=== PATIENT | male | born 1935 | race Caucasian/White ===

== ENCOUNTER → 2016-03-10 | Day surgery (SDC) | payer OTHER ==
[2016-03-09 13:02] VITALS: Ht 167.6 cm; Wt 65.9 kg
[~2016-03-10] VITALS: Ht 167.6 cm; Wt 65.9 kg
[~2016-03-10] MED LIST: 500ML BSS 0.3ML EPI 1:1000PF IRRIG ONE; ACETAMINOPHEN 325 MG TAB PO PRN; AMVISC PLUS 0.8ML SYRINGE INT OCU ONE; ATROPINE SULFATE 0.1 MG/ML 5ML SYR IV PRN; BROM0.07 OPR; BSS FLUSH ONE; EpHEDrine SULFATE INJ 50 MG/ML AMP IV PRN; EpINEphrine INJ 1MG/ML AMP 1 MG/ML AMP ONE; FENTANYL CITRATE INJ 50 MCG/1 ML 2 ML VIAL IV PRN; FLUMAZENIL 0.1 MG/1 ML 10 ML VIAL IV PRN; HYDROmorphone INJ 2 MG/ML SYR/VIAL IV PRN; LABETALOL HCL IV 5 MG/ML 20ML IV PRN; LACTATED RINGER'S 1000ML 500 ML IV SCH; LIDOCAINE 3.5% OPH GEL PER APPLICATION CHARGE ONE; LIDOCAINE HCL 1% MPF 2 ML VIAL ONE; MEPERIDINE HCL 25 MG/ML CARP IV PRN; MIDAZOLAM HCL 1 MG/ML 2ML VIAL ONE; NALOXONE HCL 0.4 MG/1 ML VIAL/CARP IV PRN; OCUCOAT 1 ML SOLN IO ONE; ONDANSETRON INJ 2 MG/ML 2 ML VIAL IV PRN; PHENYLEPHRINE 100MCG/ML 5ML SYR IV PRN; POVIDONE-IODINE OP SOLN 30 ML BTL ONE; PRED1SUS3 OPR; PROPARACAINE 0.5% OP SOLN PER DROP CHARGE OPR SCH; SODIUM CHLORIDE 0.9% 500ML IV SCH; TOBRAMYCIN/DEXAMETHASONE OPH OINT PER APPLN CHARGE ONE
[2016-03-10] MEDS: PHENYLEPHRINE HCL 2.5% OP SOLN PER DROP CHARGE OPR SCH ×2 (09:46→09:51)
[2016-03-10] MEDS: TROPICAMIDE 1% OP SOLN PER DROP CHARGE OPR SCH ×2 (09:47→09:52)
[2016-03-10] MEDS: CYCLOPENTOLATE HCL 1% OP SOLN PER DROP CHARGE OPR SCH ×2 (09:48→09:53)
[2016-03-10] MEDS: KETOROLAC 0.5% OP SOLN PER DROP CHARGE OPR SCH ×2 (09:49→09:54)
[2016-03-10] MEDS: GATIFLOXACIN OP SOLN PER DROP CHARGE OPR SCH ×2 (09:50→10:00)
--- NOTE | 2016-03-10 09:58 | History & Physical Bridge - [place] ---
H&P Re-Evaluation Bridge Note: I have examined the patient, reviewed the History & Physical and in the interval since the performance of the History & Physical I have noted the following changes of clinical significance: No changes noted
--- NOTE | 2016-03-10 10:39 | [facility] Operative Report ---
Operative Report 1. PREOPERATIVE DIAGNOSIS: Cataract of the right eye. 2. POSTOPERATIVE DIAGNOSIS: Same. 3. PROCEDURE: Phacoemulsification with intraocular lens implantation of the right eye. SURGEON: Dr. Contreras Watson. ANESTHESIA: Topical Lidocaine gel, 1% Non- Preserved intracameral Lidocaine, and monitored intravenous sedation. INDICATIONS FOR THE PROCEDURE: The patient is a 80 - year-old male with a history of cataract of the right eye causing significant visual impairment. The details of the proposed procedure were explained to the patient who asked appropriate questions and following discussion of all risks, benefits and alternatives agreed to have the procedure done. 4. OPERATION AND FINDINGS: DESCRIPTION OF PROCEDURE: After informed consent was obtained, the patient was brought to the Operating Room at the [facility]. The patient was placed in a supine position and then the right eye was prepped and draped in the usual sterile fashion for intraocular surgery. A drop of topical Lidocaine gel was placed in the operative eye. A wire lid speculum was then placed in the fornices. A corneal paracentesis was then created temporally. The Non-Preserved Lidocaine was then instilled into the anterior chamber. The anterior chamber was then pressurized with viscoelastic. A 2.0 mm clear corneal incision was then created temporally. A cystotome was inserted into the anterior chamber and used to create a tear in the anterior lens capsule. This capsular tear was then used to create a small flap and the flap was dragged in a counterclockwise direction in order to create a continuous curvilinear capsulorrhexis. Hydrodissection was accomplished with balanced salt solution. Phacoemulsification of the lens nucleus was then performed in a standard [id number] technique. The phaco time was 33 seconds with an average power of 18 %. The remaining cortical material was removed using irrigation aspiration. The capsular bag was then filled with viscoelastic. A Bausch & Lomb MI60L +16.0 diopters lens was then loaded into the injector and injected into the capsular bag. The remaining viscoelastic was removed with the irrigation aspiration handpiece. The wound was hydrated and then checked and found to be watertight. The intraocular pressure was checked and found to be adequate. The wire lid speculum was removed and the patient's face was cleaned and dried. TobraDex ointment was placed in the inferior fornix. The patient was discharged to the Recovery Room having tolerated the procedure well. There were no complications. The patient will be seen tomorrow in the office for follow-up. I attest to the content of the Intraoperative Record and any orders documented therein. Any exceptions are noted below.
--- NOTE | 2016-03-10 10:39 | Discharge Instructions-SurgCtr ---
Discharge Instructions Visit Reason for Visit: Cataract Right Eye Discharge Discharge Diagnosis / Problem: cataract Discharge Goals Goal(s): Improve function Activity Recommendations Activity Limitations: per Instructions/Follow-up section Anesthesia . Post Anesthesia Instructions: If you have had General Anesthesia or IV Sedation: * Do not drive today. * Resume driving when surgeon permits. * Do not make important decisions or sign legal documents today. * Call surgeon for: 1. Temperature elevations greater than 101 degrees F. 2. Uncontrollable pain. 3. Excessive bleeding. 4. Persistent nausea and vomiting. 5. Medication intolerance (nausea, vomiting or rash). * For nausea and vomiting use only clear liquids such as: tea, soda, bouillon until nausea subsides, then gradually increase diet as tolerated. * If you have any concerns or questions, call your surgeon's office. If physician is unavailable and it is an emergency, call 911 or go to the nearest emergency room. . Instructions / Follow-Up Instructions / Follow-Up ACTIVITY RECOMMENDATIONS: * No strenuous lifting, jogging or running for 4 days * No swimming or yard work for 1 week. * Limited bending is permitted, such as putting on shoes. RETURN TO SCHOOL/WORK: No work until seen by physician in office. MEDICATIONS: Resume previous medications unless instructed otherwise by your surgeon. This includes eye drops for glaucoma. Zymaxid/Gatifloxacin (michelle cap) - one drop every 2 hours until bedtime Nevanac/Ilevro/Prolensa/Ketorolac (weeks cap) - one drop every 4 hours until bedtime Prednisolone (white/pink cap, SHAKE WELL) - one drop every 2 hours until bedtime Starting tomorrow - all 3 drops every 4 hours until seen in the office Optive drops - as needed for discomfort SPECIAL CARE INSTRUCTIONS: * Wear eyeshield when sleeping, for four nights. * You may wear your own glasses or sunglasses while awake. * You may read or watch TV * You may shower and wash your face, but be gentle around the eye and pat dry. * Blurry vision and mild irritation are normal. * Call office if pain is more severe or vision becomes dark at . FOLLOW UP VISIT: Follow-up with Dr Watson tomorrow. Diet Recommendations Home Diet: resume previous diet Procedures Procedures Performed: Right Cataract Phacoemulsification With Intraocular Lens Implant Pending Studies Studies pending at discharge: no Medical Emergencies . Who to Call and When: Medical Emergencies: If at any time you feel your situation is an emergency, please call 911 immediately. . Non-Emergent Contact Non-Emergency issues call your: Chief Creative Officer . . "Provider Documentation" section prepared by Contreras Watson.
--- NOTE | 2016-03-10 10:53 | Anesthesia Progress Nt - [facility] ---
Anesthesia Post Op Note Date & Time Mar 10, 2016 at 10:52 Vital Signs Pain Intensity: 0 Vital Signs Past 12 Hours Date Time Temp Pulse Resp B/P Pulse Ox O2 Delivery O2 Flow Rate FiO2 03/10/16 10:41 36.3 70 16 143/84 97 Room Air 03/10/16 09:35 36.4 77 18 147/83 98 Room Air Notes Mental Status: alert / awake / arousable, participated in evaluation Pt Amnestic to Procedure: Yes Nausea / Vomiting: adequately controlled Pain: adequately controlled Airway Patency, RR, SpO2: stable & adequate BP & HR: stable & adequate Hydration State: stable & adequate Anesthetic Complications: no major complications apparent
[2016-03-10 10:59] VITALS: BP 156/87; PULSE 73; TEMP 36.4; O2SAT 96
== END | disposition home or self-care (01) ==
LOC: X.SURG 09:25
PROVIDERS: ATTEND Ophthalmology
DX: H26.9 Unspecified cataract (principal); Z88.5 Allergy status to narcotic agent; Z85.828 Personal history of other malignant neoplasm of skin; Z89.022 Acquired absence of left finger(s); Z98.890 Other specified postprocedural states

== ENCOUNTER → 2016-04-07 | Day surgery (SDC) | payer OTHER ==
[2016-03-26 07:48] VITALS: Ht 167.6 cm; Wt 65.9 kg
[~2016-04-07] VITALS: Ht 167.6 cm; Wt 65.9 kg
[~2016-04-07] MED LIST changes: -FLUMAZENIL 0.1 MG/1 ML 10 ML VIAL IV PRN; -HYDROmorphone INJ 2 MG/ML SYR/VIAL IV PRN; -LABETALOL HCL IV 5 MG/ML 20ML IV PRN; -MEPERIDINE HCL 25 MG/ML CARP IV PRN; -NALOXONE HCL 0.4 MG/1 ML VIAL/CARP IV PRN; -PHENYLEPHRINE 100MCG/ML 5ML SYR IV PRN; +PROPARACAINE 0.5% OP SOLN PER DROP CHARGE OPL SCH; -PROPARACAINE 0.5% OP SOLN PER DROP CHARGE OPR SCH; -SODIUM CHLORIDE 0.9% 500ML IV SCH
[2016-04-07] MEDS: PHENYLEPHRINE HCL 2.5% OP SOLN PER DROP CHARGE OPL SCH ×2 (06:32→06:37)
[2016-04-07] MEDS: TROPICAMIDE 1% OP SOLN PER DROP CHARGE OPL SCH ×2 (06:33→06:38)
[2016-04-07] MEDS: CYCLOPENTOLATE HCL 1% OP SOLN PER DROP CHARGE OPL SCH ×2 (06:34→06:39)
[2016-04-07] MEDS: KETOROLAC 0.5% OP SOLN PER DROP CHARGE OPL SCH ×2 (06:35→06:40)
[2016-04-07] MEDS: GATIFLOXACIN OP SOLN PER DROP CHARGE OPL SCH ×2 (06:36→06:46)
--- NOTE | 2016-04-07 06:59 | History & Physical Bridge - [place] ---
H&P Re-Evaluation Bridge Note: I have examined the patient, reviewed the History & Physical and in the interval since the performance of the History & Physical I have noted the following changes of clinical significance: Diagnosis: Left Cataract Procedure: Left Cataract Removal with Lens Implant No changes noted
[2016-04-07 07:48] VITALS: TEMP 36.8
--- NOTE | 2016-04-07 07:48 | Discharge Instructions-SurgCtr ---
Discharge Instructions Visit Reason for Visit: Left Cataract Discharge Discharge Diagnosis / Problem: cataract Discharge Goals Goal(s): Improve function Activity Recommendations Activity Limitations: per Instructions/Follow-up section Anesthesia . Post Anesthesia Instructions: If you have had General Anesthesia or IV Sedation: * Do not drive today. * Resume driving when surgeon permits. * Do not make important decisions or sign legal documents today. * Call surgeon for: 1. Temperature elevations greater than 101 degrees F. 2. Uncontrollable pain. 3. Excessive bleeding. 4. Persistent nausea and vomiting. 5. Medication intolerance (nausea, vomiting or rash). * For nausea and vomiting use only clear liquids such as: tea, soda, bouillon until nausea subsides, then gradually increase diet as tolerated. * If you have any concerns or questions, call your surgeon's office. If physician is unavailable and it is an emergency, call 911 or go to the nearest emergency room. . Instructions / Follow-Up Instructions / Follow-Up ACTIVITY RECOMMENDATIONS: * No strenuous lifting, jogging or running for 4 days * No swimming or yard work for 1 week. * Limited bending is permitted, such as putting on shoes. RETURN TO SCHOOL/WORK: No work until seen by physician in office. MEDICATIONS: Resume previous medications unless instructed otherwise by your surgeon. This includes eye drops for glaucoma. Zymaxid/Gatifloxacin (michelle cap) - one drop every 2 hours until bedtime Nevanac/Ilevro/Prolensa/Ketorolac (weeks cap) - one drop every 4 hours until bedtime Prednisolone (white/pink cap, SHAKE WELL) - one drop every 2 hours until bedtime Starting tomorrow - all 3 drops every 4 hours until seen in the office Optive drops - as needed for discomfort SPECIAL CARE INSTRUCTIONS: * Wear eyeshield when sleeping, for four nights. * You may wear your own glasses or sunglasses while awake. * You may read or watch TV * You may shower and wash your face, but be gentle around the eye and pat dry. * Blurry vision and mild irritation are normal. * Call office if pain is more severe or vision becomes dark at . FOLLOW UP VISIT: Follow-up with Dr Watson tomorrow. Diet Recommendations Home Diet: resume previous diet Procedures Procedures Performed: Left Cataract Phacoemulsification With Intraocular Lens Implant Pending Studies Studies pending at discharge: no Medical Emergencies . Who to Call and When: Medical Emergencies: If at any time you feel your situation is an emergency, please call 911 immediately. . Non-Emergent Contact Non-Emergency issues call your: Propellant Charge Zone Assembler . . "Provider Documentation" section prepared by Contreras Watson.
--- NOTE | 2016-04-07 07:48 | [facility] Operative Report ---
Operative Report 1. PREOPERATIVE DIAGNOSIS: Cataract of the left eye. 2. POSTOPERATIVE DIAGNOSIS: Same. 3. PROCEDURE: Phacoemulsification with intraocular lens implantation of the left eye. SURGEON: Dr. Contreras Watson. ANESTHESIA: Topical Lidocaine gel, 1% Non- Preserved intracameral Lidocaine, and monitored intravenous sedation. INDICATIONS FOR THE PROCEDURE: The patient is a 80 - year-old male with a history of cataract of the left eye causing significant visual impairment. The details of the proposed procedure were explained to the patient who asked appropriate questions and following discussion of all risks, benefits and alternatives agreed to have the procedure done. 4. OPERATION AND FINDINGS: DESCRIPTION OF PROCEDURE: After informed consent was obtained, the patient was brought to the Operating Room at the [facility]. The patient was placed in a supine position and then the left eye was prepped and draped in the usual sterile fashion for intraocular surgery. A drop of topical Lidocaine gel was placed in the operative eye. A wire lid speculum was then placed in the fornices. A corneal paracentesis was then created temporally. The Non-Preserved Lidocaine was then instilled into the anterior chamber. The anterior chamber was then pressurized with viscoelastic. A 2.0 mm clear corneal incision was then created temporally. A cystotome was inserted into the anterior chamber and used to create a tear in the anterior lens capsule. This capsular tear was then used to create a small flap and the flap was dragged in a counterclockwise direction in order to create a continuous curvilinear capsulorrhexis. Hydrodissection was accomplished with balanced salt solution. Phacoemulsification of the lens nucleus was then performed in a standard [id number]-[id number] technique. The phaco time was 43 seconds with an average power of 14 %. The remaining cortical material was removed using irrigation aspiration. The capsular bag was then filled with viscoelastic. A Bausch & Lomb MI60L +16.0 diopters lens was then loaded into the injector and injected into the capsular bag. The remaining viscoelastic was removed with the irrigation aspiration handpiece. The wound was hydrated and then checked and found to be watertight. The intraocular pressure was checked and found to be adequate. The wire lid speculum was removed and the patient's face was cleaned and dried. TobraDex ointment was placed in the inferior fornix. The patient was discharged to the Recovery Room having tolerated the procedure well. There were no complications. The patient will be seen tomorrow in the office for follow-up. I attest to the content of the Intraoperative Record and any orders documented therein. Any exceptions are noted below.
[2016-04-07 08:07] VITALS: BP 152/75; PULSE 69; O2SAT 98
--- NOTE | 2016-04-07 08:12 | Anesthesia Progress Nt - [facility] ---
Anesthesia Post Op Note Date & Time Apr 07, 2016 at 08:12 Vital Signs Pain Intensity: 0 Vital Signs Past 12 Hours Date Time Temp Pulse Resp B/P Pulse Ox O2 Delivery O2 Flow Rate FiO2 04/07/16 08:07 69 16 152/75 98 Room Air 04/07/16 07:48 36.8 66 16 147/80 98 Room Air 04/07/16 06:28 36.5 68 16 153/81 98 Room Air Notes Mental Status: alert / awake / arousable, participated in evaluation Pt Amnestic to Procedure: Yes Nausea / Vomiting: adequately controlled Pain: adequately controlled Airway Patency, RR, SpO2: stable & adequate BP & HR: stable & adequate Hydration State: stable & adequate Anesthetic Complications: no major complications apparent
== END | disposition home or self-care (01) ==
LOC: X.SURG 06:13
PROVIDERS: ATTEND Ophthalmology
DX: H26.9 Unspecified cataract (principal); H54.7 Unspecified visual loss; G43.119 Migraine with aura, intractable, without status migrainosus; C44.90 Unspecified malignant neoplasm of skin, unspecified; K58.9 Irritable bowel syndrome, unspecified; K57.32 Diverticulitis of large intestine without perforation or abscess without bleeding

== ENCOUNTER 2018-03-17 10:23 | Inpatient (IN) ==
--- NOTE | 2018-03-15 13:39 | Anesthesiology Consultation ---
Date of Service March 15, 2018 History Surgery Operation Date: 03/17/18 12:30 Proposed Procedures p Right Robot Video-Assisted Thoracoscopy with Right Lower Lobe Wedge Resection , Possible Left Lower Lobectomy with Mediastinal Lymphadenectomy - Neal Carroll MD, FACS Allergies Allergy/AdvReac Type Severity Reaction Status Date / Time morphine AdvReac Unknown SLOWS HR Verified 02/18/18 07:36 Medications Home Medications Medication Instructions Recorded Confirmed Last Taken No Known Home Medications 02/18/18 02/18/18 Unknown Past Medical History Medical History Urinary problem Stomach problems Pneumonia Kidney disease Squamous cell cancer of scalp and skin of neck (Resolved) Past Family History Family History Other Cancer HTN (hypertension) Heart disease Lung disease Social History Smoking Status: Never smoker Testing Electrocardiogram Date: 02/18/18 Findings: + NSR @ (90), + RBBB and + T wave inversion (inferior,anterior)
--- NOTE | 2018-03-15 15:48 | Anesthesiology Consultation ---
Date of Service March 15, 2018 Assessment & Plan (1) Encounter for pre-operative examination: Chart Review Chart Review: Patient NOT seen in Pre Admission Testing Consults Requested none History Surgery Operation Date: 03/17/18 12:30 Proposed Procedures p Right Robot Video-Assisted Thoracoscopy with Right Lower Lobe Wedge Resection , Possible Left Lower Lobectomy with Mediastinal Lymphadenectomy - Neal Carroll MD, FACS Allergies Allergy/AdvReac Type Severity Reaction Status Date / Time morphine AdvReac Unknown SLOWS HR Verified 02/18/18 07:36 Medications Home Medications Medication Instructions Recorded Confirmed Last Taken acetaminophen [Tylenol] 325 mg PO Q6H PRN 03/15/18 03/15/18 Unknown diazepam 5 mg PO HS PRN 03/15/18 03/15/18 Unknown ibuprofen [Advil] 200 mg PO QID PRN 03/15/18 03/15/18 Unknown omeprazole 20 mg PO DAILY 03/15/18 03/15/18 Unknown triamcinolone acetonide 1 applic TOPICAL BID 03/15/18 03/15/18 Unknown Past Medical History Medical History Urinary problem Stomach problems Pneumonia Kidney disease 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 Ventricular rate has increase by 33bpm, T wave inversion now evident in inferior and anterior leads. Chest X-Ray Date: 02/18/18 Findings: + NAD FINDINGS: An AP, portable, upright chest radiograph is compared to study dated 01/18/2015. The examination is degraded by portable technique and patient rotation. The cardiomediastinal silhouette is unremarkable, noting atherosclerotic calcification of the thoracic aorta. There is bibasilar scarring /atelectasis. Chronic interstitial thickening is similar to previous. No airspace consolidation or large pleural effusion is identified. No pneumothorax is seen. The skeletal structures are osteopenic. There is a healed right-sided rib fracture. IMPRESSION: No acute cardiopulmonary abnormality. Echocardiogram Date: 02/18/18 EF: 65-70% LV Function: normal RWMA: + none Other Findings: + LVH (Mild concentric) and + diastolic dysfunction (Grade I ( abnormal relaxation pattern)) Mild aortic regurgitation. Trace mitral regurgitation. Other Testing CT Angio Chest PE protocol 02/18/18: IMPRESSION: 1. No acute aortic pathology or evidence of pulmonary thromboembolic disease. 2. 2.2 x 2.7 x 1.9 cm soft tissue attenuating lesion of the tracheoesophageal recess. Differential considerations would include pathologic lymph node or pulmonary neoplasm. This lesion would be amenable to bronchoscopic tissue sampling. 3. Circumferential wall thickening of the mid and distal esophagus with small sliding-type hiatal hernia. Mild reactive fluid about the distal esophagus also noted. These findings could be correlated with endoscopy. 4. Bronchitis with mild mucous plugging and bibasilar subsegmental atelectasis. Laboratory Results Laboratory Tests 02/18/18 02/18/18 06:52 06:52 WBC 7.17 Hgb 13.3 L Hct 40.3 L Plt Count 263 Sodium 142 Potassium 3.6 Chloride 110 H Carbon Dioxide 26 BUN 22 H Creatinine 1.30 Glucose 118 H
[~2018-03-17 10:23] MED LIST changes: -500ML BSS 0.3ML EPI 1:1000PF IRRIG ONE; -ACETAMINOPHEN 325 MG TAB PO PRN; -AMVISC PLUS 0.8ML SYRINGE INT OCU ONE; -ATROPINE SULFATE 0.1 MG/ML 5ML SYR IV PRN; -BROM0.07 OPR; -BSS FLUSH ONE; -EpHEDrine SULFATE INJ 50 MG/ML AMP IV PRN; -EpINEphrine INJ 1MG/ML AMP 1 MG/ML AMP ONE; -FENTANYL CITRATE INJ 50 MCG/1 ML 2 ML VIAL IV PRN; -LACTATED RINGER'S 1000ML 500 ML IV SCH; -LIDOCAINE 3.5% OPH GEL PER APPLICATION CHARGE ONE; -LIDOCAINE HCL 1% MPF 2 ML VIAL ONE; +LR 15ML/HR IV SCH; -MIDAZOLAM HCL 1 MG/ML 2ML VIAL ONE; -OCUCOAT 1 ML SOLN IO ONE; -ONDANSETRON INJ 2 MG/ML 2 ML VIAL IV PRN; -POVIDONE-IODINE OP SOLN 30 ML BTL ONE; -PRED1SUS3 OPR; -PROPARACAINE 0.5% OP SOLN PER DROP CHARGE OPL SCH; -TOBRAMYCIN/DEXAMETHASONE OPH OINT PER APPLN CHARGE ONE
[2018-03-17] MEDS ORDERED: DEXAMETHASONE SOD INJ 4 MG/ML VIAL ONE (11:46)
[2018-03-17] MEDS ORDERED: fentaNYL citrate 100 MCG/2 ML VIAL ONE ×2 (11:46→14:51)
[2018-03-17] MEDS ORDERED: GLYCOPYRROLATE 0.2 MG/ML VIAL ONE (11:46)
[2018-03-17] MEDS ORDERED: ONDANSETRON INJ 2 MG/ML 2 ML VIAL ONE ×2 (11:46→16:12)
[2018-03-17] MEDS ORDERED: NEOSTIGMINE METHYLSULFATE 5 MG/5 ML SYR ONE (11:46)
[2018-03-17] MEDS ORDERED: PROPOFOL IV EMULSION 10 MG/ML 20 ML VIAL IV ONE ×2 (11:46→14:02)
[2018-03-17] MEDS ORDERED: LIDOCAINE HCL 2% 2 ML VIAL/AMP(20MG/ML) INFIL ONE (11:46)
[2018-03-17] MEDS ORDERED: ATROPINE SULFATE 0.1 MG/ML 10ML SYR IV PRN (12:02)
[2018-03-17] MEDS ORDERED: ONDANSETRON INJ 2 MG/ML 2 ML VIAL IV PRN ×2 (12:02→17:50)
[2018-03-17] MEDS ORDERED: ePHEDrine sulfate 50 MG/ML AMP IV PRN (12:02)
[2018-03-17] MEDS ORDERED: BUPIVACAINE LIPOSOME 1.3% 266 MG/20 ML VIAL INFIL ONE (12:11)
[2018-03-17] MEDS ORDERED: BUPIVACAINE 0.5 % 5 MG/1 ML MPF 30ML VIAL ONE (12:11)
[2018-03-17] MEDS ORDERED: SODIUM CHLORIDE 0.9% PF 50 ML VIAL ONE (12:12)
--- NOTE | 2018-03-17 12:32 | History & Physical Bridge Note ---
Date of Service March 17, 2018 History & Physical Bridge Note I have examined the patient, reviewed the History & Physical and in the interval since the performance of the History & Physical I have noted the following changes of clinical significance: no changes noted
[2018-03-17] MEDS ORDERED: KEFZOL SPECIAL PROCEDURE STOCK 1 GM ADDVIAL IV ONE (13:16)
[2018-03-17] MEDS ORDERED: CEFAZOLIN 1,000 MG/7.5 ML IV PUSH IV ONE (13:30)
[2018-03-17] MEDS ORDERED: SURGICEL ABSORB HEMOSTAT 2IN X 14IN TOP ONE (13:47)
[2018-03-17] MEDS ORDERED: ePHEDrine sulfate 50 MG/ML SYR ONE (14:02)
[2018-03-17] MEDS ORDERED: ALBUMIN HUMAN 5% 12.5 GM/250 ML VIAL IV ONE (14:23)
[2018-03-17] MEDS ORDERED: TISSEEL FIBRIN SEALANT 10ML TOP ONE (14:41)
[2018-03-17] MEDS ORDERED: PROGEL PLEURAL AIR LEAK SEALAN 4ML TOP ONE (14:42)
--- NOTE | 2018-03-17 15:38 | Post Operative Brief Note ---
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
[2018-03-17] MEDS ORDERED: METOCLOPRAMIDE HCL INJ 5 MG/ML 2 ML VIAL IV ONE (16:00)
[2018-03-17] MEDS ORDERED: ROCURONIUM BROMIDE 10 MG/ML 5 ML VIAL ONE (16:12)
[2018-03-17] MEDS: fentaNYL citrate 100 MCG/2 ML VIAL IV PRN ×5 (16:19→16:50)
--- NOTE | 2018-03-17 16:24 | XRay Report ---
XR chest 1V portable CLINICAL HISTORY: right lung mass resection COMPARISON STUDY: Chest radiograph and chest CT February 18, 2018. FINDINGS: Right chest tube is in place. A small right apical pneumothorax with pleural separation of 6 mm is noted. There is a trace left pleural effusion with mild left basilar opacity. There is no melanie dence for pulmonary edema. Patient is rotated. IMPRESSION: 1. Right chest place. Small right apical pneumothorax. 2. Trace left pleural effusion with left basilar opacity suggestive of atelectasis. Electronically signed by: Abdulkadir Zamudio M.D. 03/17/2018 4:23 PM
[2018-03-17] MEDS ORDERED: LABETALOL HCL IV 5 MG/ML 20ML IV ONE (16:54)
[2018-03-17] MEDS: LABETALOL HCL IV 5 MG/ML 20ML IV PRN ×3 (16:57→17:17)
--- NOTE | 2018-03-17 17:25 | Anesthesiology Progress Note ---
Date of Service March 17, 2018 Anesthesia Post Procedure Vital Signs Vital Signs: Temp Pulse Pulse Resp BP BP Pulse Ox 03/17/18 17:15 79 11 L 178/92 H 98 03/17/18 17:10 78 7 L 172/89 H 98 03/17/18 17:09 77 15 172/88 H 98 03/17/18 17:06 78 11 L 97 03/17/18 17:05 78 12 170/91 H 96 03/17/18 17:00 80 9 L 163/81 H 98 03/17/18 16:55 92 H 15 186/84 H 99 03/17/18 16:50 91 H 14 184/91 H 100 03/17/18 16:49 90 10 L 181/98 H 100 03/17/18 16:47 91 H 16 100 03/17/18 16:46 89 16 181/89 H 100 03/17/18 16:45 91 H 14 100 03/17/18 16:41 90 16 186/93 H 99 03/17/18 16:40 90 15 181/100 H 100 03/17/18 16:35 87 12 180/104 H 100 03/17/18 16:30 87 14 179/87 H 100 03/17/18 16:25 85 11 L 179/85 H 100 03/17/18 16:20 83 13 171/102 H 100 03/17/18 16:15 87 14 166/89 H 92 03/17/18 16:11 89 16 152/72 H 92 03/17/18 16:10 87 13 94 03/17/18 16:05 89 20 162/70 H 96 03/17/18 16:01 36.4 C L 87 89 24 161/108 H 161/108 H 97 03/17/18 16:00 22 100 03/17/18 11:04 36.6 C 72 18 173/86 H 97 Pain Intensity Right Lateral Chest: Pain Intensity: 3 Notes Mental Status: alert / awake / arousable Patient Amnestic to Procedure: Yes Nausea / Vomiting: adequately controlled Pain: adequately controlled Airway Patency, RR, SpO2: stable & adequate BP & HR: stable & adequate Hydration State: stable & adequate Anesthetic Complications: no major complications apparent
[2018-03-17] MEDS ORDERED: diazePAM 5 MG TABLET PO PRN (17:50)
[2018-03-17] MEDS ORDERED: KETOROLAC TROMETHAMINE 15 MG/ML VIAL IV PRN (17:50)
[2018-03-17] MEDS ORDERED: D5W AND 1/2NSS 1,000 ML IV SCH (17:50)
--- NOTE | 2018-03-17 19:08 | Operative Report ---
DATE OF OPERATION: 03/17/2018 PREOPERATIVE DIAGNOSIS: Hypermetabolic mass, superior segment, right lower lobe. POSTOPERATIVE DIAGNOSIS: Hypermetabolic mass, superior segment, right lower lobe. PROCEDURES: 1. Robotic-assisted right thoracoscopic wedge resection and excision of mass. 2. Mediastinal lymphadenectomy. SURGEON: Neal Carroll MD PUBLIC HOUSING MANAGER: ALMA DELIA Goyal (Mr. Esa was present in the whole case and was at the patient's bedside while I was at the console). ANESTHESIA: General anesthesia, endotracheal intubation. 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 He underwent a resection with positive margins and then a re-resection in 01/2017. Patient presented to me after he was worked up and found to have a hypermetabolic mass in the superior segment of the right lower lobe, which was isolated. He presented to see me, and we set him up for a wedge resection. I explained to him that we could do endobronchial ultrasound with biopsy; however, this is the only area that lit up, and if it was a lung primary, we would do a frozen section and do a lobectomy, and if it was a metastasis, we would simply get clean margins. He understood. On 03/17/2018, the patient underwent an uncomplicated robot-assisted thoracoscopic wedge resection. This is a very difficult case. This mass initially appeared to be coming from the superior segment of the right lower lobe, and I dissected this out and had to peel it off the esophagus. We divided the azygos vein, and I peeled it off the left mainstem bronchus. We finally wedged out a portion of the lung; however, it did not appear to me that this was definitely from the lung. I discussed this with Dr. Jay Miles from anesthesia. We will have to make permanent slides, but it may well have simply been a metastatic deposit. He had spindle cells with sarcomatous features and may well be metastatic from his scalp lesion. Patient tolerated the procedure well. He had small air leak with essentially no blood loss. He was awakened without difficulty and extubated in the room. DESCRIPTION OF PROCEDURE: The patient was brought to the operating room and laid in supine position. General anesthesia induced. Endotracheal intubation performed with a double lumen tube. The patient was turned in the left lateral decubitus position. His right chest was prepped and draped in the usual sterile fashion. I placed a 5 mm port posteriorly, a 12 mm camera port near the mid axillary line, then an 8 mm port between the first 2 ports and an 8 mm port anteriorly. These were all in about the eighth interspace. Also, patient had an assistance port anteriorly, an interspace just above the diaphragm. We had excellent visualization, and there were really no adhesions. He had very well-developed fissures. Upon coming down, we could see that this mass right away. I had excellent exposure, and I meticulously dissected this off the wall of the esophagus. It was a bit difficult superiorly, so I freed up the azygos vein and fired an Endo-KYLAH stapler across this, and this allowed us to pull this mass up quite nicely. I then completed the fissure, although there was really no parenchyma. I identified the arterial branches particularly the posterior ascending branch to the upper lobe. After freeing this up, I wedged out a portion of the superior segment with the mass. Frozen section showed this to be having sarcomatous features with spindle cells, very similar to his scalp lesion. I did not leave any gross tumor behind. We also did a lymph node dissection. I took down the inferior pulmonary ligament and dissected level 9, level 8, level 10, 11, 2, 4, and a portion of 7. We irrigated out the chest. I really did not see any bleeding, and he did not appear to have an air leak. We did use Exparel, 266 mg mixed with 30 mL of 0.25% Marcaine and 250 mL of normal saline. We injected each of our port sites before making the incision and then used this to perform an intercostal block. Our blood loss was negligible. A 24-Malaysian chest tube was placed in the pharmacy sales assistant's port a bit inferiorly and directed toward the apex. It was sutured in place with a heavy silk suture. 0 Vicryl was used to close the camera port. 4-0 Monocryl was used to close each of the incisions. Patient was awakened in the room and tolerated it well. He was transferred to the postanesthesia care unit in stable condition. I attest to the content of the Intraoperative Record and any orders documented therein. Any exception s are noted below.
[2018-03-17] MEDS: ACETAMINOPHEN 1,000 MG/100 ML VIAL IV SCH (20:33)
[2018-03-17] MEDS: DOCUSATE SODIUM 100 MG CAP PO SCH (20:38)
[2018-03-17] MEDS: TRIAMCINOLONE ACET 0.1% CR 15 GM TUBE TOP SCH (20:40)
[2018-03-17] MEDS: METOCLOPRAMIDE HCL INJ 5 MG/ML 2 ML VIAL IV SCH (23:59)
[2018-03-18] MEDS: ACETAMINOPHEN 1,000 MG/100 ML VIAL IV SCH (04:23)
[2018-03-18] MEDS ORDERED: Nursing to Pharmacy Communication ONE (05:41)
[2018-03-18 05:45] LABS: INR 1.1 (0.9-1.1); Prothrombin Time 10.8 Seconds (9.0-12.0)
--- NOTE | 2018-03-18 07:19 | XRay Report ---
XR chest 1V portable CLINICAL HISTORY: right lung mass resection postoperative COMPARISON STUDY: 03/17/2017 FINDINGS: Right-sided chest tube in good position. No significant residual pneumothorax. Lungs consid ered grossly clear. The atelectatic and fusion-type change left base has resolved. IMPRESSION: Improved postoperative exam. Right sided chest tube in good position. No significant pne umothorax. The above report was generated using voice recognition software. It may contain grammatical, syntax or spelling errors. Electronically signed by: Maksim Sage M.D. 03/18/2018 7:18 AM
[2018-03-18] MEDS ORDERED: COUGH DROP (SUGAR FREE) LOZ 24 LOZ/1 BOX BUCCAL ONE (07:31)
--- NOTE | 2018-03-18 08:55 | XRay Report ---
XR chest 1V portable CLINICAL HISTORY: tube removal tube position COMPARISON STUDY: 03/18/2018 6:50 AM FINDINGS: Removal of the right-sided chest tube. No significant postprocedural pneumothorax. Trace lozano bcutaneous emphysema unchanged. IMPRESSION: No pneumothorax post right-sided chest tube removal. The above report was generated using voice recognition software. It may contain grammatical, syntax or spelling errors. Electronically signed by: Maksim Sage M.D. 03/18/2018 8:53 AM
[2018-03-18] MEDS ORDERED: PANTOprazole 40 MG TAB PO SCH (09:00)
[2018-03-18] MEDS ORDERED: ENOXAPARIN INJ 40 MG/0.4 ML SYR SQ SCH (09:00)
[2018-03-18] MEDS: DOCUSATE SODIUM 100 MG CAP PO SCH (09:26)
[2018-03-18] MEDS: TRIAMCINOLONE ACET 0.1% CR 15 GM TUBE TOP SCH (09:27)
[2018-03-18] MEDS: METOCLOPRAMIDE HCL INJ 5 MG/ML 2 ML VIAL IV SCH (09:33)
[2018-03-18] MEDS ORDERED: ACETAMINOPHEN 325 MG TAB PO SCH (10:00)
--- NOTE | 2018-03-18 10:32 | Anesthesiology Progress Note ---
Date of Service March 18, 2018 Anesthesia Post Procedure Vital Signs Vital Signs: Temp Pulse Pulse Pulse Resp BP BP 03/18/18 10:20 37.1 C 88 78 18 120/65 03/18/18 08:22 37.1 C 78 18 120/65 03/18/18 05:44 36.8 C 80 18 130/68 03/18/18 03:42 36.8 C 84 16 131/68 03/18/18 01:59 37.0 C 90 18 03/17/18 23:42 36.9 C 84 16 146/72 H 03/17/18 21:40 36.7 C 87 16 157/79 H 03/17/18 20:38 36.8 C 88 20 03/17/18 19:40 36.7 C 86 18 03/17/18 18:38 36.5 C 85 20 03/17/18 18:21 36.4 C L 86 18 03/17/18 17:40 36.6 C 82 17 03/17/18 17:30 36.6 C 78 78 16 03/17/18 17:25 77 13 166/85 H 03/17/18 17:22 78 13 170/88 H 03/17/18 17:20 79 11 L 169/86 H 03/17/18 17:15 79 11 L 178/92 H 03/17/18 17:10 78 7 L 172/89 H 03/17/18 17:09 77 15 172/88 H 03/17/18 17:06 78 11 L 03/17/18 17:05 78 12 170/91 H 03/17/18 17:00 80 9 L 163/81 H 03/17/18 16:55 92 H 15 186/84 H 03/17/18 16:50 91 H 14 184/91 H 03/17/18 16:49 90 10 L 181/98 H 03/17/18 16:47 91 H 16 03/17/18 16:46 89 16 181/89 H 03/17/18 16:45 91 H 14 03/17/18 16:41 90 16 186/93 H 03/17/18 16:40 90 15 181/100 H 03/17/18 16:35 87 12 180/104 H 03/17/18 16:30 87 14 179/87 H 03/17/18 16:25 85 11 L 179/85 H 03/17/18 16:20 83 13 171/102 H 03/17/18 16:15 87 14 166/89 H 03/17/18 16:11 89 16 152/72 H 03/17/18 16:10 87 13 03/17/18 16:05 89 20 162/70 H 03/17/18 16:01 36.4 C L 87 89 24 161/108 H 03/17/18 16:00 22 03/17/18 11:04 36.6 C 72 18 BP Pulse Ox Pulse Ox 03/18/18 10:20 130/69 96 03/18/18 08:22 96 03/18/18 05:44 95 03/18/18 03:42 98 03/18/18 01:59 130/69 93 03/17/18 23:42 95 03/17/18 21:40 96 96 03/17/18 20:38 167/76 H 97 03/17/18 19:40 170/78 H 97 03/17/18 18:38 177/88 H 95 03/17/18 18:21 178/86 H 96 03/17/18 17:40 170/78 H 95 95 03/17/18 17:30 166/85 H 97 03/17/18 17:25 96 03/17/18 17:22 96 03/17/18 17:20 97 03/17/18 17:15 98 03/17/18 17:10 98 03/17/18 17:09 98 03/17/18 17:06 97 03/17/18 17:05 96 03/17/18 17:00 98 03/17/18 16:55 99 03/17/18 16:50 100 03/17/18 16:49 100 03/17/18 16:47 100 03/17/18 16:46 100 03/17/18 16:45 100 03/17/18 16:41 99 03/17/18 16:40 100 03/17/18 16:35 100 03/17/18 16:30 100 03/17/18 16:25 100 03/17/18 16:20 100 03/17/18 16:15 92 03/17/18 16:11 92 03/17/18 16:10 94 03/17/18 16:05 96 03/17/18 16:01 161/108 H 97 03/17/18 16:00 100 03/17/18 11:04 173/86 H 97 Pain Intensity Right Lateral Chest: Pain Intensity: 2 Notes Mental Status: alert / awake / arousable and participated in evaluation Patient Amnestic to Procedure: Yes Nausea / Vomiting: adequately controlled Pain: adequately controlled Airway Patency, RR, SpO2: stable & adequate BP & HR: stable & adequate Hydration State: stable & adequate Anesthetic Complications: no major complications apparent and Pt Satisfied with anesthetic care
--- NOTE | 2018-03-18 15:11 | Discharge Summary ---
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 HOSPITAL COURSE: Oscar Lujan is an extremely nice 82-year-old male who was found to have a solitary isolated mass in the superior segment of his right lower lobe which was retracted into the azygos recess. It was hypermetabolic, but we saw no hypermetabolic activity anywhere else. 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 We did not see any evidence of recurrent disease anywhere else. Although he had a history of light smoking, I was concerned about the appearance of this mass. On 03/17/2018, I brought the patient to the operating room and did a robot-assisted thoracoscopic resection of this mass. It was extremely adherent to the surrounding structures including the esophagus and the right mainstem bronchus and right at the bifurcation of the bronchus intermedius and the right upper lobe bronchus. I was able to get this off and I wedged out a resection at the superior segment of the lower lobe. This was sent off and indeed was an "ugly" appearing tumor according to Dr. Jay Miles. We proceeded with a lymph node dissection while waiting for this frozen section. He did quite well. He had a small air leak right after surgery; however, it had resolved by the time he got to the floor, and the following morning, he had no air leak and his x-ray looked quite good. I removed his chest tube the following day. I was quite pleased with his appearance. He was discharged home and I will see him back in the office next week to discuss our options. Quite pleased with him frankly. He did very well for an 82-year-old male who is only in the hospital 1 day. I have instructed him to call me should any problems arise.
== END 2018-03-18 11:52 | disposition home or self-care (01) | DRG 164 ==
LOC: ASU 10:23 → 3N 15:48

== ENCOUNTER 2018-04-05 14:46 | Inpatient (IN) ==
[2018-04-05] MEDS ORDERED: SODIUM CHLORIDE 0.9% 500 ML IV SCH (15:30)
--- NOTE | 2018-04-05 15:43 | XRay Report ---
XR chest 1V portable CLINICAL HISTORY: weakness COMPARISON STUDY: Chest radiograph April 01, 2018. PET/CT March 09, 2018. FINDINGS: Incidental note is made of cholecystectomy clips. Lung volumes are normal. There is no pneu mothorax or pleural effusion. There is no consolidation or evidence for pulmonary edema. Cardiomedias tinal silhouette is unchanged. The appearance of the chest is unchanged. The 3.2 cm right lower lobe mass shown on PET/CT of March 09, 2018 is not evident on this exam, possibly due to technique. IMPRESSION: 1. No acute cardiopulmonary findings. 2. The 3.2 cm right lower lobe FDG avid mass-like abnormality on PET/CT of March 09, 2018 is not melanie dent on this exam, possibly due to technique. Electronically signed by: Abdulkadir Zamudio M.D. 04/05/2018 3:41 PM
--- NOTE | 2018-04-05 15:59 | Emergency Department Note ---
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 Family reports that the patient had been evaluated in the ER four days ago with similar but less severe symptoms. He states that the patient in the past two days has become increasingly weak in his right side along with worsening difficulty swallowing. He reports that the patient was able to walk yesterday by shuffling very slowly, but today he is unable to lift his right leg. He notes that the patient is asymptomatic on the left side. 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 Carroll 2.5 weeks ago, and shortly thereafter he developed difficulties with his right hand. 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 The patient reports that he is right- handed. Home Medications Home Medications Medication Instructions Recorded Confirmed Type diazepam [Valium] 5 mg PO HS PRN 03/15/18 04/05/18 History ibuprofen [Advil] 200 mg PO QID PRN 03/15/18 04/05/18 History omeprazole 20 mg PO QAM 03/15/18 04/05/18 History triamcinolone acetonide 1 applic TOPICAL BID 03/15/18 04/05/18 History acetaminophen [Tylenol Extra 500 - 1,000 mg PO Q6H PRN 04/05/18 04/05/18 History Strength] Allergies Allergy/AdvReac Type Severity Reaction Status Date / Time morphine AdvReac Unknown SLOWS HR Verified 03/19/18 10:34 Past Med/Surg History Social History Current Living Situation: Alone Feels Safe at Home: Yes Smoking Status: Former smoker Tobacco Type: pipe Second Hand Exposure: No Hx Alcohol Use: Yes Alcohol type: beer Alcohol Intake Frequency: holidays/ special occasions only Hx Substance Use: No Beliefs That Will Affect Care: None Preferred Language: [place] Review of Systems See HPI for pertinent positives & negatives. and A total of 10 systems reviewed and were otherwise negative Physical Exam Vital Signs Vital Signs - 24 hr 04/05/18 14:51 04/05/18 15:42 04/05/18 16:47 Temperature 36.4 C L Temperature Source Oral Sepsis Recent Fever Within 48 Hours No Sepsis New/Unexplained Change in Mental Status No Sepsis Action Taken by Nursing No Action Required Pulse Rate 77 Respiratory Rate 16 Respiratory Effort / Characteristics Non-Labored Spontaneous Respiratory Depth Normal Respiratory Pattern Regular Blood Pressure 151/80 H Blood Pressure [Right Arm] 142/85 H Blood Pressure Mean 103 Blood Pressure Mean [Right Arm] 104 Blood Pressure Position Sitting Pulse Oximetry 99 97 Oxygen Delivery Method Room Air Room Air CONSTITUTIONAL/VITAL SIGNS: Reviewed / noted above. GENERAL: Non-toxic in appearance. INTEGUMENTARY: Warm, dry, and [place]. HEAD: Normocephalic. EYES: without scleral icterus or trauma. ENT/OROPHARYNX: clear, mucous membranes are dry. LYMPHADENOPATHY/NECK: Is supple without lymphadenopathy or meningismus. RESPIRATORY: Lungs clear and equal. CARDIOVASCULAR: Regular rate and rhythm. GI/ABDOMEN: Soft and nontender. No organomegaly or pulsatile mass. No rebound or guarding. Normal bowel sounds. EXTREMITIES: Warm and well perfused. BACK: No CVA tenderness. NEUROLOGICAL: Intact without focal deficits. PSYCHIATRIC: normal affect. MUSCULOSKELETAL: There is significant right arm, right leg, and right facial weakness. Course 1528: Past medical records reviewed. The patient was evaluated in room C7, and a complete history and physical examination were performed. 1729: I consulted Renee Chandler PA-C: [facility]. She will reevaluate the patient for hospitalization. Consultations Consultation #1: I consulted Renee Chandler PA-C: [facility] Hospitalist. She will reevaluate the patient for hospitalization. Time: 17:29 Administered Medications Ioversol (Optiray 320 125ml) 119 ml IV ONCE PRN PRN Reason: Interaction Checking Stop: 04/09/18 16:05 Last Admin: 04/05/18 16:06 Dose: 119 ml Discontinued Medications Sodium Chloride (Nss) 500 mls @ 999 mls/hr IV .Q31M MELANIE Stop: 04/05/18 16:00 Last Infusion: 04/05/18 16:25 Dose: 0 mls/hr Admin: 04/05/18 15:51 Dose: 999 mls/hr Medical Decision Making Differential Diagnosis Differential includes acute coronary syndrome, myocardial infarction, CVA, TIA , anemia, infection, pneumonia, UTI, pyelonephritis, poor nutrition, dehydration , electrolyte disturbance,hypoglycemia. Medical Records Attestation: I reviewed the patient's medical records. Home Medications Current Medication List: was personally reviewed by me Laboratory Data Attestation: I reviewed the patient's lab results. Result diagrams: 04/05/18 15:48 04/05/18 15:48 Lab Results 04/05/18 04/05/18 Range/Units 15:48 15:48 WBC 10.02 (4.8-10.8) K/uL RBC 4.08 L (4.7-6.1) M/uL Hgb 12.8 L (14.0-18.0) g/dL Hct 39.2 L (42-52) % MCV 96.1 (80-100) fL MCH 31.4 (25-34) pg MCHC 32.7 (32-36) g/dL RDW Std Deviation 45.3 (36.4-46.3) fL RDW Coeff of Maegan 13.0 (11.5-14.5) % Plt Count 277 (130-400) K/uL MPV 11.3 H (7.4-10.4) fL Immature Gran % (Auto) 0.2 % Neut % (Auto) 63.8 % Lymph % (Auto) 16.8 % [place] % (Auto) 16.6 % Eos % (Auto) 2.2 % Baso % (Auto) 0.4 % Immature Gran # (Auto) 0.02 (0.00-0.02) K/uL Neut # (Auto) 6.40 (1.4-6.5) K/uL Lymph # (Auto) 1.68 (1.2-3.4) K/uL [place] # (Auto) 1.66 H (0.11-0.59) K/uL Eos # (Auto) 0.22 (0-0.5) K/uL Baso # (Auto) 0.04 (0-0.2) K/uL Sodium 145 (136-145) mmol/L Potassium 3.8 (3.5-5.1) mmol/L Chloride 109 H (98-107) mmol/L Carbon Dioxide 30 (21-32) mmol/L Anion Gap 6.0 (3-11) BUN 32 H (7-18) mg/dl Creatinine 1.17 (0.6-1.4) mg/dl Est Cr Clr Drug Dosing 40.9 ml/min Est GFR ( Amer) 66.4 Est GFR (Non-Af Amer) 57.3 BUN/Creatinine Ratio 27.5 H (10-20) Glucose 85 (70-99) mg/dl Calcium 9.5 (8.5-10.1) mg/dl Total Bilirubin 0.5 (0.2-1) mg/dl AST 20 (15-37) U/L ALT 26 (12-78) U/L Alkaline Phosphatase 125 H (45-117) U/L Troponin I < 0.015 (0-0.045) ng/ml Total Protein 8.0 (6.4-8.2) gm/dl Albumin 3.8 (3.4-5.0) gm/dl Globulin 4.2 H (2.5-4.0) gm/dl Albumin/Globulin Ratio 0.9 (0.9-2) Imaging Data Radiologist's Impression: Radiology results as stated below per my review and the radiologist's interpretation: XR chest 1V portable CLINICAL HISTORY: weakness COMPARISON STUDY: Chest radiograph April 01, 2018. PET/CT March 09, 2018. FINDINGS: Incidental note is made of cholecystectomy clips. Lung volumes are normal. There is no pneumothorax or pleural effusion. There is no consolidation or evidence for pulmonary edema. Cardiomediastinal silhouette is unchanged. The appearance of the chest is unchanged. The 3.2 cm right lower lobe mass shown on PET/CT of March 09, 2018 is not evident on this exam, possibly due to technique. IMPRESSION: 1. No acute cardiopulmonary findings. 2. The 3.2 cm right lower lobe FDG avid mass-like abnormality on PET/CT of March 09, 2018 is not evident on this exam, possibly due to technique. Electronically signed by: Abdulkadir Zamudio M.D. 04/05/2018 3:41 PM ADDENDUM Ill-defined lesion of the rachael which demonstrates apparent enhancement on the CTA head and neck studies of same day is concerning for underlying neoplasm. Correlation with MRI of the brain recommended. Electronically signed by: Sae Kwan M.D. 04/05/2018 4:[address] head/brain wo con CLINICAL HISTORY: 82 years-old Male with cva, right sided weakness. Acute weakness with strokelike symptoms TECHNIQUE: Multiple axial CT images of the head were obtained without contrast. A dose lowering technique was utilized adhering to the principles of ALARA. COMPARISON: CTA head and neck of same day, CT head 04/01/2018. FINDINGS: No acute intracranial hemorrhage, midline shift, intracranial mass, hydrocephalus, territorial ischemia or abnormal extra-axial collection. Age- related involutional changes. White matter hypodensities suggestive of chronic microvascular ischemic changes. Cerebral vascular calcifications are noted. Ill- defined decreased attenuation about the left cerebral peduncle, image 14 series 2 appears unchanged from comparison. The calvarium is intact. The paranasal sinuses, mastoid air cells, and middle ear cavities are clear. IMPRESSION: 1. No acute intracranial hemorrhage, midline shift or territorial infarct. 2. Ill-defined hypoattenuation about the left cerebral peduncle appears unchanged from comparison study suggestive of age-indeterminate infarct, chronic microvascular ischemic changes or wallerian degeneration. The above report was generated using voice recognition software. It may contain grammatical, syntax or spelling errors. Electronically signed by: Sae Kwan M.D. 04/05/2018 4:[address] angio head w con CLINICAL HISTORY: 82 years-old Male presenting with cva, creat 1.06 4 days ago.. TECHNIQUE: Multidetector CT angiography of the head was performed after the administration of intravenous contrast. 3-D volumetric and/or maximum intensity projection (MIP) images were subsequently reconstructed for review. IV contrast : 119 mL of Optiray 320. One or more dose lowering techniques were used consistent with the principles of ALARA (as low as reasonably achievable), including automatic exposure control, mA or kV adjustment to individual patient size, and/or use of iterative reconstruction. COMPARISON: Noncontrast CT head from 04/01/2018. CT DOSE (mGy.cm): The estimated cumulative dose is 1181.26. 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 Anterior circulation: Intracranial portions of the internal carotid arteries patent to the level of the termini. Anterior cerebral arteries patent. Middle cerebral arteries patent. Anterior communicating artery patent. Posterior circulation: Codominant vertebral arteries. Intradural portions of the vertebral arteries patent. Posterior inferior cerebellar arteries patent. Basilar artery patent. Anterior inferior cerebellar arteries poorly visualized. Superior cerebellar arteries patent. Posterior cerebral arteries patent.Posterior communicating arteries hypoplastic or aplastic. Dural venous sinuses: Patent. Other: Left paramedian pontine rim-enhancing lesion. Calvarium intact. IMPRESSION: 1. No evidence of aneurysm, focal vessel occlusion, or significant stenosis of the intracranial arteries. 2. Rim enhancing pontine lesion. This is suboptimally evaluated. Contrast enhanced MR brain recommended. Differential considerations include a subacute infarct or metastatic lesion. The report will be called/faxed according to standard departmental protocol. Electronically signed by: Jay Ledbetter M.D. 04/05/2018 4:[address] angio neck with con CLINICAL HISTORY: 82 years-old Male with cva, creat 1.06 4 days ago. . Acute weakness with strokelike symptoms COMPARISON STUDY: CT head and CTA head of same day TECHNIQUE: Following the IV administration of 119 mL of Optiray 320, CT angiogram of the neck was performed from the aortic arch to the skull base. Images are reviewed in the axial, sagittal, and coronal planes. 3-D MIPS images are created and assessed. IV contrast was administered without complication. All measurements were calculated based on NASCET criteria. A dose lowering technique was utilized adhering to the principles of ALARA. CT DOSE: 1181.26 mGy.cm FINDINGS: The imaged pulmonary arterial tree appears unremarkable. Moderate mixed plaque formation about the thoracic aortic arch. Patency of the imaged bilateral subclavian arteries. The bilateral common carotid arteries are widely patent. Mild mixed plaque formation about the bilateral carotid bulbs and proximal ICAs , left greater than right. This causes less than 50% stenosis bilaterally. There is a small saccular aneurysm arising from the medial wall of the proximal cervical segment left ICA on image 289 series 6 which measures 4 x 3 x 5 mm. The remainder of the imaged bilateral internal carotid arteries are within normal limits and are widely patent. Mild tortuosity about the bilateral vertebral arteries. Vertebral arteries are codominant. Mild calcified plaque at the origin of the right vertebral artery without high-grade stenosis. Bilateral vertebral arteries appear widely patent. Imaged basilar artery also appears unremarkable and is patent. Imaged lung ken appear clear. No pneumothorax. Thyroid nodules measure up to 10 mm on the right. No adenopathy. 2.1 x 2.0 x 1.8 cm enhancing mass about the left rachael. Suggestion of adenopathy adjacent to the right mainstem bronchus, partially imaged. Bones appear to be intact. Multilevel facet arthrosis with intervertebral disc space narrowing and spondylitic spurring. IMPRESSION: 1. 2.1 cm enhancing pontine lesion is suspicious for neoplasm. Correlation with contrast-enhanced MRI of the brain recommended. 2. 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 3. Otherwise unremarkable CTA without dissection, high-grade stenosis or proximal branch occlusion. 4. Additional incidental findings as above. The above report was generated using voice recognition software. It may contain grammatical, syntax or spelling errors. Electronically signed by: Sae Kwan M.D. 04/05/2018 4:32 PM ECG Data Attestation: I personally reviewed and interpreted this ECG as follows: Indication: weakness Rate (beats per minute): 72 Rhythm: normal sinus Findings: + RBBB; no PAC, no PVC and no ST elevation Blood Pressure Blood Pressure Findings: Elevated blood pressure Blood Pressure Disposition: further management by hospitalist REYMUNDO Mandujano This is an 82-year-old male who presents to the ED with a chief complaint of strokelike symptoms. The patient was seen here 4 days ago with some paresthesias. His son states that since that time he has had a progressively decline. The patient has had progressive increasing weakness of his right arm, right face and right leg and also the inability to swallow. The patient himself states that the trouble swallowing started after he was intubated for a tumor removal in his lung. He had a tumor removed from the right lower lobe by Dr. Ngo 2-1/2 weeks ago. He states that he has never been able to swallow that well since that time. His exam reveals significant right arm and right leg weakness as well as a right facial weakness and dry mucous membranes. The patient is awake, alert and oriented. He has no distress. His vital signs were stable. Initial blood pressure 151/80. He is afebrile and denies any pulmonary complaints. CBC is unremarkable. BUN is 32. Chemistry panel is otherwise unremarkable. A CT scan of the brain without and with contrast was performed. CT scan angiogram of the neck was also performed. There is a 2.1 cm enhancing pontine lesion as well as a 5 mm saccular aneurysm in the left internal carotid artery. The patient was hydrated with IV fluids. I spoke with the hospitalist, who will see the patient for further inpatient evaluation and care. Impression & Plan Brain tumor, Right sided weakness Discharge Plan Visit Data Chief Complaint: Stroke/CVA Symptoms Stated Complaint: STROKE SX, DEHYDRATION, DECLINING MOTOR SKILLS ED Provider: Mateo Wallace Discharge Problem: Brain tumor, Right sided weakness Patient Disposition: Being Evaluated by Hospitalist Forms Stand Alone Forms: My [facility] Prescriptions Prescriptions: No Action triamcinolone acetonide 0.1 % Cream 1 applic TOPICAL BID RF: 0 ibuprofen [Advil] 200 mg Tablet 200 mg PO QID PRN (Reason: Pain) RF: 0 omeprazole 20 mg Capsule,Delayed Release(Dr/Ec) 20 mg PO QAM RF: 0 diazepam [Valium] 5 mg Tablet 5 mg PO HS PRN (Reason: Muscle Spasm) RF: 0 acetaminophen [Tylenol Extra Strength] 500 mg Tablet 500 - 1,000 mg PO Q6H PRN (Reason: Pain) RF: 0 Referrals Referrals: Jose Miguel Ansari [Primary Care Provider] - The scribe's documentation has been prepared under my direction and personally reviewed by me in its entirety. I confirm that the note above accurately reflects all work, treatment, procedures, and medical decision making performed by me.
[2018-04-05 16:04] LABS: Basophils # (auto) 0.04 K/uL (0-0.2); Basophils % (auto) 0.4 %; Eosinophils # (auto) 0.22 K/uL (0-0.5); Eosinophils % (auto) 2.2 %; Hematocrit (blood only) 39.2 % (42-52); Hemoglobin 12.8 g/dL (14.0-18.0); Immature Granulocytes # (auto) 0.02 K/uL (0.00-0.02); Immature Granulocytes % (auto) 0.2 %; Lymphocytes # (auto) 1.68 K/uL (1.2-3.4); Lymphocytes % (auto) 16.8 %; Mean Corpuscular Hgb Conc 32.7 g/dL (32-36); Mean Corpuscular Volume 96.1 fL (80-100); Mean Platelet Volume 11.3 fL (7.4-10.4); Monocytes # (auto) 1.66 K/uL (0.11-0.59); Monocytes % (auto) 16.6 %; Neutrophils % (auto) 63.8 %; Platelet Count 277 K/uL (130-400); RDW Standard Deviation 45.3 fL (36.4-46.3); Red Blood Count 4.08 M/uL (4.7-6.1); White Blood Count 10.02 K/uL (4.8-10.8)
[2018-04-05] MEDS ORDERED: OPTIRAY 320 125ml IV PRN (16:06)
--- NOTE | 2018-04-05 16:16 | CT Scan Report ---
ADDENDUM Ill-defined lesion of the rachael which demonstrates apparent enhancement on the CTA head and neck studi es of same day is concerning for underlying neoplasm. Correlation with MRI of the brain recommended. Electronically signed by: Sae Kwan M.D. 04/05/2018 4:[address] head/brain wo con CLINICAL HISTORY: 82 years-old Male with cva, right sided weakness. Acute weakness with strokelike s ymptoms TECHNIQUE: Multiple axial CT images of the head were obtained without contrast. A dose lowering tech nique was utilized adhering to the principles of ALARA. COMPARISON: CTA head and neck of same day, CT head 04/01/2018. FINDINGS: No acute intracranial hemorrhage, midline shift, intracranial mass, hydrocephalus, territorial ischem ia or abnormal extra-axial collection. Age-related involutional changes. White matter hypodensities s uggestive of chronic microvascular ischemic changes. Cerebral vascular calcifications are noted. Ill- defined decreased attenuation about the left cerebral peduncle, image 14 series 2 appears unchanged f rom comparison. The calvarium is intact. The paranasal sinuses, mastoid air cells, and middle ear cavities are clear . IMPRESSION: 1. No acute intracranial hemorrhage, midline shift or territorial infarct. 2. Ill-defined hypoattenuation about the left cerebral peduncle appears unchanged from comparison kylah dy suggestive of age-indeterminate infarct, chronic microvascular ischemic changes or wallerian degen eration. The above report was generated using voice recognition software. It may contain grammatical, syntax o r spelling errors. Electronically signed by: Sae Kwan M.D. 04/05/2018 4:15 PM
[2018-04-05 16:24] LABS: Alanine Aminotransferase 26 U/L (12-78); Albumin Level 3.8 gm/dl (3.4-5.0); Aspartate Aminotransferase 20 U/L (15-37); BUN Creatinine Ratio 27.5 (10-20); Blood Urea Nitrogen 32 mg/dl (7-18); Calcium 9.5 mg/dl (8.5-10.1); Carbon Dioxide 30 mmol/L (21-32); Chloride 109 mmol/L (98-107); Creatinine Clr Calc Pharmacy 40.9 ml/min; Est GFR (African American) 66.4; Est GFR (Non-African American) 57.3; Glucose 85 mg/dl (70-99); Potassium 3.8 mmol/L (3.5-5.1); Sodium 145 mmol/L (136-145)
[2018-04-05 16:29] LABS: Albumin Globulin Ratio 0.9 (0.9-2); Alkaline Phosphatase 125 U/L (45-117); Bilirubin,Total 0.5 mg/dl (0.2-1); Globulin 4.2 gm/dl (2.5-4.0); Troponin I < 0.015 ng/ml (0-0.045)
--- NOTE | 2018-04-05 16:34 | CT Scan Report ---
CT angio neck with con CLINICAL HISTORY: 82 years-old Male with cva, creat 1.06 4 days ago. . Acute weakness with strokel kathy symptoms COMPARISON STUDY: CT head and CTA head of same day TECHNIQUE: Following the IV administration of 119 mL of Optiray 320, CT angiogram of the neck was per formed from the aortic arch to the skull base. Images are reviewed in the axial, sagittal, and loya l planes. 3-D MIPS images are created and assessed. IV contrast was administered without complication . All measurements were calculated based on NASCET criteria. A dose lowering technique was utilized adhering to the principles of ALARA. CT DOSE: 1181.26 mGy.cm FINDINGS: The imaged pulmonary arterial tree appears unremarkable. Moderate mixed plaque formation about the th oracic aortic arch. Patency of the imaged bilateral subclavian arteries. The bilateral common carotid arteries are widely patent. Mild mixed plaque formation about the bilateral carotid bulbs and proxim al ICAs, left greater than right. This causes less than 50% stenosis bilaterally. There is a small sa ccular aneurysm arising from the medial wall of the proximal cervical segment left ICA on image 289 s eries 6 which measures 4 x 3 x 5 mm. The remainder of the imaged bilateral internal carotid arteries are within normal limits and are widely patent. Mild tortuosity about the bilateral vertebral arteries. Vertebral arteries are codominant. Mild calci fied plaque at the origin of the right vertebral artery without high-grade stenosis. Bilateral verteb ral arteries appear widely patent. Imaged basilar artery also appears unremarkable and is patent. Imaged lung ken appear clear. No pneumothorax. Thyroid nodules measure up to 10 mm on the right. N o adenopathy. 2.1 x 2.0 x 1.8 cm enhancing mass about the left rachael. Suggestion of adenopathy adjacen t to the right mainstem bronchus, partially imaged. Bones appear to be intact. Multilevel facet arthr osis with intervertebral disc space narrowing and spondylitic spurring. IMPRESSION: 1. 2.1 cm enhancing pontine lesion is suspicious for neoplasm. Correlation with contrast-enhanced MRI of the brain recommended. 2. 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 3. Otherwise unremarkable CTA without dissection, high-grade stenosis or proximal branch occlusion. 4. Additional incidental findings as above. The above report was generated using voice recognition software. It may contain grammatical, syntax o r spelling errors. Electronically signed by: Sae Kwan M.D. 04/05/2018 4:32 PM
--- NOTE | 2018-04-05 16:42 | CT Scan Report ---
CT angio head w con CLINICAL HISTORY: 82 years-old Male presenting with cva, creat 1.06 4 days ago.. TECHNIQUE: Multidetector CT angiography of the head was performed after the administration of intrave nous contrast. 3-D volumetric and/or maximum intensity projection (MIP) images were subsequently arthur nstructed for review. IV contrast: 119 mL of Optiray 320. One or more dose lowering techniques were u sed consistent with the principles of ALARA (as low as reasonably achievable), including automatic ex posure control, mA or kV adjustment to individual patient size, and/or use of iterative reconstructio n. COMPARISON: Noncontrast CT head from 04/01/2018. CT DOSE (mGy.cm): The estimated cumulative dose is 1181.26. 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 Anterior circulation: Intracranial portions of the internal carotid arteries patent to the level of t he termini. Anterior cerebral arteries patent. Middle cerebral arteries patent. Anterior communicatin g artery patent. Posterior circulation: Codominant vertebral arteries. Intradural portions of the vertebral arteries p atent. Posterior inferior cerebellar arteries patent. Basilar artery patent. Anterior inferior cerebe llar arteries poorly visualized. Superior cerebellar arteries patent. Posterior cerebral arteries pat ent.Posterior communicating arteries hypoplastic or aplastic. Dural venous sinuses: Patent. Other: Left paramedian pontine rim-enhancing lesion. Calvarium intact. IMPRESSION: 1. No evidence of aneurysm, focal vessel occlusion, or significant stenosis of the intracranial parris rosa. 2. Rim enhancing pontine lesion. This is suboptimally evaluated. Contrast enhanced MR brain recommen ded. Differential considerations include a subacute infarct or metastatic lesion. The report will be called/faxed according to standard departmental protocol. Electronically signed by: Jay Ledbetter M.D. 04/05/2018 4:40 PM
--- NOTE | 2018-04-05 19:11 | History & Physical Report ---
Date of Service April 05, 2018 Assessment & Plan (1) Right sided weakness: This is an 82yo M with a PMH of metastatic squamous cell carcinoma who presents with progressive weakness of right side x 2 weeks and was found to have a 2.1 enhancing pontine lesion suspicious for neoplasm. -Progressed from paresthesias and weakness of R hand 2 weeks ago to full R sided weakness with ambulatory dysfunction -CTA head/neck with 2.1 enhancing pontine lesion suspicious for neoplasm. Correlation with contrast-enhanced MRI of the brain recommended. 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 Esteban of neurology, who will see patient tomorrow * MRI brain with/without contrast * Neurochecks * Given IV Decadron 10mg x 1 for weakness associated with mass -PT/OT evaluations for progressive weakness, possible need for rehab (lives alone) (2) Metastatic squamous cell carcinoma: History as follows: diagnosed with SCC of scalp with resection in Jan 2017 and underwent radiation by Dr. Myrick in April 2017. Developed pleuritic chest pain in Jan 2018 and metastatic SCC was found on RLL, which was resected by Dr. Carroll on Mar 17 2018. Was seen by Dr. Reeder at the end of March and PET scan was negative. Planned on returning in April for further management with systemic chemotherapy versus immunotherapy. Followed up with dermatology for recurrent scalp lesion yesterday and had excision. Pathology pending -Consider heme/onc consult once MRI brain results (3) Dysphagia: First noted before EGD March, but has progressed -EGD (03/07/18) with normal results and pathology. Recommended starting prilosac 20mg daily x 8 weeks -Has equal difficulty with solid and liquid foods -Son notes more frequent aspirations at home -Will keep NPO with maintenance fluids until speech eval -IV protonix 40mg BID DVT Ppx: SCDs for now until MRI brain results Code status: FULL per discussion with patient, son PCP: Jimmy Ansari Dispo: Admitted to telemetry. Discharge planning ordered. Patient seen in collaboration with Dr. Viveros. Please see addendum. History of Present Illness Chief Complaint: progressive right sided weakness Primary Care Provider: Jose Miguel Ansari This is an 82yo M with a PMH of metastatic squamous cell carcinoma who presents with progressive weakness of right side x 2 weeks. First noticed paresthesias and weakness of R hand 2 weeks ago and it has progressed to full R side. Was evaluated in the ED on 04/01 and had no weakness on exam. CT head without contrast was negative and patient was discharged home. Over the weekend, weakness progressed and patient began to have more difficulty with ambulation. This morning, patient got up at 3am to use bathroom and was able to limp there. As of 8am, patient was unable to get out of bed, so he slid to the ground and crawled. Son is visiting from [place] and has been staying with patient. Also endorses difficulty swallowing that has progressed over the past few months. Has equal difficulty swallowing solid foods or liquids. Son notes more frequent aspiration at home. Denies fever, chills, lightheadedness, difficulty speaking, chest pain, SOB, wheezing, nausea, vomiting, abdominal pain, dysuria, diarrhea or constipation. Patient was diagnosed with SCC of scalp with resection in Jan 2017 and underwent radiation by Dr. Myrick in April 2017. Developed pleuritic chest pain in Jan 2018 and metastatic SCC was found on RLL, which was resected by Dr. Carroll on Mar 17 2018. Was seen by Dr. Reeder at the end of March and PET scan was negative. Planned on returning in April for further management with systemic chemotherapy versus immunotherapy. Followed up with dermatology for recurrent scalp lesion yesterday and had excision. Pathology pending. Hemodynamically stable. CTA head/neck with 2.1 enhancing pontine lesion suspicious for neoplasm. Correlation with contrast-enhanced MRI of the brain recommended. 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 Otherwise unremarkable CTA without dissection, high-grade stenosis or proximal branch occlusion. Discussed with Dr. Esteban of neurology. Will admit for MRI brain with/without contrast. Also ordered IV Decadron 10mg x 1. Allergies Allergy/AdvReac Type Severity Reaction Status Date / Time morphine AdvReac Unknown SLOWS HR Verified 03/19/18 10:34 Home Medications Home Medications Medication Instructions Recorded Confirmed Type diazepam [Valium] 5 mg PO HS PRN 03/15/18 04/05/18 History ibuprofen [Advil] 200 mg PO QID PRN 03/15/18 04/05/18 History omeprazole 20 mg PO QAM 03/15/18 04/05/18 History triamcinolone acetonide 1 applic TOPICAL BID 03/15/18 04/05/18 History acetaminophen [Tylenol Extra 500 - 1,000 mg PO Q6H PRN 04/05/18 04/05/18 History Strength] Past Med/Surg History Medical History Metastatic squamous cell carcinoma (Chronic) s/p resection of scalp in Jan 2017, s/p resection of mets to RLL by Dr. 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 Surgical History History of herniorrhaphy (Resolved) right inguinal hernia repair History of cholecystectomy (Resolved) History of bowel resection (Resolved) HX -- IBS and needed due to unable to pass colonoscope History of esophagogastroduodenoscopy (EGD) (Resolved) Family History Father Cancer lung cancer Lung disease worked at [employer] Mother Heart disease Mother HTN (hypertension) Social History Current Living Situation: Alone Feels Safe at Home: Yes Smoking Status: Former smoker Tobacco Type: pipe Second Hand Exposure: No Hx Alcohol Use: Yes Alcohol type: beer Alcohol Intake Frequency: holidays/ special occasions only Hx Substance Use: No Beliefs That Will Affect Care: None Preferred Language: Omani Review of Systems All systems reviewed & are unremarkable except as noted in HPI & below Physical Exam 2 Vital Signs (Past 24 Hours): Last Vital Signs Temp 36.4 C L 04/05/18 14:51 Pulse 77 04/05/18 14:51 Resp 16 04/05/18 14:51 BP 142/85 H 04/05/18 16:47 Pulse Ox 97 04/05/18 15:42 Physical Exam: General Appearance: WD/WN, no apparent distress, appears chronically ill Head: normocephalic, atraumatic, L temporal scalp with recent incision, sutures in place Eyes: normal inspection, PERRL, EOMI ENT: hearing grossly normal, pharynx normal (moist mucous membranes) Neck: supple, no JVD, no adenopathy Respiratory/Chest: lungs clear to auscultation. No wheezes, rales or rhonci. No respiratory distress or accessory muscle use Cardiovascular: regular rate, rhythm, no murmur, normal peripheral pulses Abdomen/GI: normal bowel sounds, soft, non-tender to palpation Extremities/Musculoskelatal: normal inspection, no calf tenderness, normal capillary refill, no pedal edema. L hand s/p amputation of 1st and 2nd digits Neurologic/Psych: alert, normal mood/affect, oriented x 3. Weakness noted in R eyelid compared to left. CN otherwise intact. RUE and RLE with 2-3/5 ELBA. Sensation intact. Skin: normal color, warm/dry Results & Data Laboratory Results Short CBC 04/05/18 Range/Units 15:48 WBC 10.02 (4.8-10.8) K/uL Hgb 12.8 L (14.0-18.0) g/dL Hct 39.2 L (42-52) % Plt Count 277 (130-400) K/uL BMP 04/05/18 15:48 Sodium 145 Potassium 3.8 Chloride 109 H Carbon Dioxide 30 BUN 32 H Creatinine 1.17 Glucose 85 Calcium 9.5 Cardiac Enzymes 04/05/18 Range/Units 15:48 Troponin I < 0.015 (0-0.045) ng/ml Liver Function 04/05/18 Range/Units 15:48 Total Bilirubin 0.5 (0.2-1) mg/dl AST 20 (15-37) U/L ALT 26 (12-78) U/L Alkaline Phosphatase 125 H (45-117) U/L Albumin 3.8 (3.4-5.0) gm/dl Urine 04/05/18 Range/Units 19:15 Urine Color Yellow Urine Appearance Clear (Clear) Urine pH 5.5 (4.5-7.5) Ur Specific [place] > 1.045 H (1.000-1.030) Urine Protein Negative (Negative) Urine Glucose (UA) Negative (Negative) Code Status & VTE Plan Code Status FULL VTE Prophylaxis Plan VTE Prophylaxis will be ordered: Yes Supervising Physician Co-Signing Physician Notes Patient is an 82 yr male with metastatic squamous cell carcinoma S/P surgery, radiation who recently was discharged from [facility] after getting resection of RLL secondary to metastctic SCC and other problems presents with stroke like symptoms. Patient complains of worsening right sided weakness, dysarthria, dysphagia, weight loss. Please review HPI for complete details. Imaging studies suggestive of 2.1 cm enhancing pontine lesion is suspicious for neoplasm and 2. 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 Discussed the findings with Neurology. Patient will be given decadron 10mg once and MRI will be obtained. Speech and swallow eval requested. Depending on MRI results, radiation oncology might be involved as well. On exam patient is thin, chronic ill appearing, significant right sided weakness 2-3/5, +dysarthia, Left scalp surgical changes, lungs CTA, Left fingers S/P amputation , no pedal edema. I personally reviewed the record. Patient is interviewed and examined at bedside. Patient's care is coordinated with Renee Chandler PA-C. Please refer to the documentation above for details of patient's presentation and for discussion of other issues.
[2018-04-05] MEDS ORDERED: DEXAMETHASONE SOD INJ 4 MG/ML VIAL IV STA (19:19)
[2018-04-05 19:48] LABS: Appearance Urine Clear (Clear); Bacteria Urine Automated Negative (Negative); Bilirubin Urine Negative (Negative); Blood Urine Trace (Negative); Color Urine Yellow; Glucose Urine UA Negative (Negative); Ketones Urine 1+ (Negative); Leukocyte Esterase Urine Negative (Negative); Nitrite Urine Negative (Negative); Protein Urine Negative (Negative); RBC Urine Automated 0-4 /hpf (0-4); Specific Gravity Urine > 1.045 (1.000-1.030); Urobilinogen Urine Negative (Negative); pH Urine 5.5 (4.5-7.5)
[2018-04-05] MEDS ORDERED: GADOBUTROL 65ML VIAL IV PRN (21:21)
--- NOTE | 2018-04-05 21:52 | Magnetic Resonance Report ---
MR brain wo/w con CLINICAL HISTORY: 82 years-old Male presenting with 2.1 rim enhancing pontine lesion, right-sided wea kness, left-sided head pain for one to 2 weeks. TECHNIQUE: Multisequence, multiplanar MR imaging of the brain was performed before and after the admi nistration of intravenous contrast. IV contrast: 6 mL of Gadavist. COMPARISON: CTA head performed earlier today. FINDINGS: Localizer images: Unremarkable. No hydrocephalus. Effacement of the left aspect of the prepontine cistern. Expansile intra-axial T1 h ypointense, mildly T2 hypointense mass in the right rachael expanding the contour of the rachael. This demo nstrates a thick rim of restricted diffusion and homogeneous enhancement. This mass measures 2.2 x 2. 0 x 2.2 cm. There is significant surrounding T2 hyperintensity extending into the cerebellar peduncle s, left greater than right, brachium pontis bilaterally, and pontomedullary junction. No other enhanc ing lesion is present within the brain parenchyma. Punctate focus of restricted diffusion suggested in the right frontal lobe in the region of the subco rtical white matter of the precentral gyrus. No associated enhancement of this region on postcontrast imaging. No additional foci of restricted diffusion. No hemorrhage. Extensive periventricular and lozano bcortical white matter T2/FLAIR hyperintensity, nonspecific but possibly chronic small vessel ischemi c change. Temporal white matter foci are not characteristic of chronic small vessel ischemic change. No extra-axial fluid collection. T2 skull base flow voids preserved. Bone marrow signal intensity within the calvarium within normal l imits apart from a subcentimeter suspected lipoma in the left parieto-occipital region. Bilateral cecile hossein lenses are absent. IMPRESSION: 1. Intra-axial 2.2 cm mass in the left rachael most suspicious for a metastatic lesion. Correlate with the history of malignancy. Surrounding abnormal signal intensity may represent reactive vasogenic luna ma or, less likely, regional invasion. Differential considerations include primary glioma or lymphoma . 2. Extensive periventricular and subcortical white matter signal abnormalities, most likely chronic small vessel ischemic change. However, foci of abnormal signal within the temporal lobe white matter would not be characteristic of this entity. Given the absence of additional enhancing lesions, it is doubtful that these temporal lobe abnormalities relate to the intra-axial mass. Correlate for history of demyelinating disease. Electronically signed by: Jay Ledbetter M.D. 04/05/2018 9:49 PM
[2018-04-05] MEDS: PANTOprazole 40 MG in SYRINGE 0 ML IV SCH (22:41)
[2018-04-05] MEDS: D5W AND 1/2NSS + 20MEQ KCL 20 MEQ/1,000 ML BAG IV SCH (22:41)
[2018-04-06 07:03] LABS: Hematocrit (blood only) 39.2 % (42-52); Mean Corpuscular Hgb Conc 33.2 g/dL (32-36); Mean Corpuscular Volume 95.4 fL (80-100); Mean Platelet Volume 11.4 fL (7.4-10.4); Platelet Count 254 K/uL (130-400); RDW Standard Deviation 45.1 fL (36.4-46.3); Red Blood Count 4.11 M/uL (4.7-6.1); White Blood Count 6.51 K/uL (4.8-10.8)
[2018-04-06 07:34] LABS: BUN Creatinine Ratio 24.9 (10-20); Calcium 9.2 mg/dl (8.5-10.1); Creatinine Clr Calc Pharmacy 43.9 ml/min; Est GFR (African American) 71.6; Est GFR (Non-African American) 61.8; Potassium 3.9 mmol/L (3.5-5.1)
[2018-04-06] MEDS: PANTOprazole 40 MG in SYRINGE 0 ML IV SCH ×2 (09:08→22:17)
[2018-04-06] MEDS: D5W AND 1/2NSS + 20MEQ KCL 20 MEQ/1,000 ML BAG IV SCH (11:28)
--- NOTE | 2018-04-06 12:57 | Fluoroscopy Report ---
FL video swallow CLINICAL HISTORY: Dysphagia. Assess for aspiration. COMPARISON STUDY: None. FLUOROSCOPY TIME: 2 minutes. FINDINGS: There is no aspiration within liquids however initiation of swallow was delayed. A small am ount of aspiration was noted with nectar thick liquids. Marked esophageal dysmotility was noted. No a dditional consistencies were administered. IMPRESSION: 1. Small amount of tracheal aspiration with nectar thick liquids. Delayed initiation of swallowing me chanism. 2. Suspected marked esophageal dysmotility. 3. Full recommendations by speech pathology to follow. Electronically signed by: Abdulkadir Zamudio M.D. 04/06/2018 12:56 PM
[2018-04-06] MEDS ORDERED: ONDANSETRON INJ 2 MG/ML 2 ML VIAL IV PRN (13:15)
[2018-04-06] MEDS ORDERED: LORazepam 0.5 MG/1 ML VIAL IV PRN (13:16)
[2018-04-06] MEDS ORDERED: ATROPINE SULFATE 1% OP SOLN 5 ML BTL SL PRN (13:17)
--- NOTE | 2018-04-06 13:47 | Neurology Consultation ---
Date of Consultation April 06, 2018 History of Present Illness Attending Physician: Franchesca Cano MD Allergies Allergy/AdvReac Type Severity Reaction Status Date / Time morphine AdvReac Unknown SLOWS HR Verified 03/19/18 10:34 Home Medications Home Medications Medication Instructions Recorded Confirmed Type diazepam [Valium] 5 mg PO HS PRN 03/15/18 04/05/18 History ibuprofen [Advil] 200 mg PO QID PRN 03/15/18 04/05/18 History omeprazole 20 mg PO QAM 03/15/18 04/05/18 History triamcinolone acetonide 1 applic TOPICAL BID 03/15/18 04/05/18 History acetaminophen [Tylenol Extra 500 - 1,000 mg PO Q6H PRN 04/05/18 04/05/18 History Strength] Patient History Medical History Metastatic squamous cell carcinoma (Chronic) s/p resection of scalp in Jan 2017, s/p resection of mets to RLL by Dr. 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 Surgical History History of herniorrhaphy (Resolved) right inguinal hernia repair History of cholecystectomy (Resolved) History of bowel resection (Resolved) HX -- IBS and needed due to unable to pass colonoscope History of esophagogastroduodenoscopy (EGD) (Resolved) Family History Father Cancer lung cancer Lung disease worked at [employer] Mother Heart disease Mother HTN (hypertension) Social History marital status: / Current Living Situation: Alone Other Information That Helps Us Care for You: No Feels Safe at Home: Yes Safety Concerns: Feels Safe At This Time Smoking Status: Current every day smoker Tobacco Type: pipe Do You Dip or Chew Tobacco: No Second Hand Exposure: No Tobacco Cessation Education Requested by Patient: No Hx Alcohol Use: Yes Alcohol type: beer Alcohol Intake Frequency: holidays/ special occasions only Hx Substance Use: No Beliefs That Will Affect Care: None Preferred Language: Japanese Communication Ability: Effective Solutions Development Analyst Required: No Physical Exam 2 Vital Signs (Past 24 Hours): Last Vital Signs Temp 36.3 C L 04/06/18 10:55 Pulse 86 04/06/18 10:55 Resp 16 04/06/18 10:55 BP 138/72 04/06/18 10:55 Pulse Ox 98 04/06/18 10:55 Physical Exam: EXAM: Constitutional: appearance normally developed, well nourished and non-obeseHead and Face: normocephalic and atraumatic Eyes: normal lids, normal conjunctiva, fundi visualized and optic disks normal appearance Neck: supple Respiratory: normal effort Cardiovascular: regular rhythm and normal pulses Abdomen: non distended Skin: no rashes, lesions, or ulcers noted Psychiatric: normal judgement and insight, normal mood and normal affect NEUROLOGIC EXAMINATION: Appearance: no acute distress Opthalmoscopic: disc flat, normal fundus Carotid/Heart/Peripheral Vascular: no bruits, RRR Orientation: awake, alert and oriented x 3 Mental Status: alert Memory: registration 3/3 and recall 3/3 Attention: normal Knowledge: appropriate Language: no aphasia Speech: no dysarthria Cranial Nerves: CN 2 - no visual defect on confrontation and pupils round, equal, reactive to light CN 3, 4, 6 - extra-ocular movements intact and no nystagmus CN 5 - facial sensation intact CN 7 - no facial asymmetry CN 8 - intact hearing CN 9, 10 - palate symmetric CN 11 - good shoulder shrug CN 12 - tongue midline Gait: stable, no ataxia and can perform tandem walking Coordination: no ataxia with finger to nose testing and heel to carlton testing Sensory: intact and symmetric to pinprick, light touch, vibration and joint position Muscle Tone: normal Muscle exam: Reflexes:
[2018-04-06] MEDS: DEXAMETHASONE SOD PHOSPHATE 4 MG in SYRINGE 0 ML IV SCH ×2 (13:59→17:54)
--- NOTE | 2018-04-06 15:07 | Oncology Consultation ---
Date of Consultation April 06, 2018 Assessment & Plan (1) Right sided weakness: * Patient with a left sided pontine lesion, 2 cm, with vasogenic edema * Patient given dexamethasone 10 mg IV x1 dose when admitted to the hospital * Neurology has been consulted, final recommendations pending * Radiation Oncology has also been consulted, further recommendations pending * Dr. Washington contacted hospitalist, recommended dexamethasone increase to 6 mg q6h , also recommended neurosurg consult * Discussed with patient/son that systemic therapy is not a treatment for intracranial mets (2) Metastatic squamous cell carcinoma: * Diagnosed with SCC of scalp with resection in Jan 2017 and underwent radiation by Dr. Myrick in April 2017. Developed pleuritic chest pain in Jan 2018 and metastatic SCC was found on RLL, which was resected by Dr. Carroll on Mar 17 2018 * Dr. Reeder met this patient for the 1st time on 03/29/2018 and recommended foundation 1 testing to include PD L1 diff decide about systemic treatment * The patient had a PET-CT in March 2018 that showed the right lower lobe metastasis which has since been resected but otherwise no other metastatic disease was noted at that time Thanks for the consult- Dr. Washington is the covering medical oncologist- please see her addendum. Attending Addendum I performed a history and physical on the patient and discussed the management with Michelle Farr PA-C Please refer to her note for details. I discussed with the patient and his son at bedside gen: awake and alert, NAD, chronically ill appearing HEENT: anicteric no pallor sutures on left scalp Neck: no palpable adenopathy Lungs: CTAB no wheezes or rales or rhonchi CV: S1 S2 RRR Abd:+BS soft NT/ND Ext: no edema Neuro: alert and oriented x3, +right sided weakness of upper and lower extremity , appears to have some improvement with steroids, was able to grasp with right hand but weak and lift forearm on right but not the right arm off bed and and able to move the right foot decreased sensation to LT of R foot slightly Left side motor 5/5 grossly Imp: 82 year old male with metastatic squamous cell carcinoma, s/p resection of scalp lesion in 01/2017 and RT in 04/2017, found to have metastatic lesion to RLL of lung in 01/2018 and underwent resection of the lung mass in 03/17/18 that was consistent with poorly differentiated sarcomatoid squamous cell carcinoma. Dr Reeder met with him and recommended Foundation one testing. Patient admitted with progressive right sided weakness and paresthesias as well as dysphagia and left sided headache MRI brain showing a 2.2cm lesion in left rachael suspicious for metastasis. I had a lengthy discussion with the patient and his son. I discussed the multidisciplinary approach to treatment of solitary brain lesion that is concerning for malignancy and I recommended neurosurgery consultation and radiation oncology has already been consulted. The patient and his son declined neurosurgery consultation at this time and said they are not interested in transfer to tertiary center for evaluation or consultation with neurosurgery for the abnormal brain MRI. recommend neurology follow up Recommend continue dexamethasone 6mg IV Q6h at this time for the vasogenic edema recommend check CT scan chest - had recent resection of lung mass. He will need Physical therapy evaluation. At this time ECOG PS is poor at this time due to his right sided weakness with inability to ambulate. follow up in the office with Dr Reeder after RT to discuss further treatment options I discussed with the patient and his son and they understand that this is a serious condition given the location of the lesion and his functional decline with symptoms of weakness, also has dysphagia His overall alf prognosis will depend on his functional status after treatment of the brain lesion that is concerning for metastasis and whether he has systemic recurrence outside the brain. Dr Reeder recommended a Foundation one testing - I feel it is still reasonable to pursue that at this time. thank you for consult History of Present Illness Attending Physician: Franchesca Cano MD Mr. 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 He was treated with locally advanced disease with a wide excision in 2016 followed by radiation with Dr Myrick. In January 2018, he developed pleuritic chest pain and had a right lower lobe mass on imaging. He underwent resection by Dr. Carroll in March 2018, a wedge resection with lymph node dissection. He presented to [facility] on 04/05/2018 for the onset of right-sided upper extremity/LE weakness, dysarthria, inability to walk. He had a brain MRI that shows a 2 cm lesion of the left pontine region of the brain. He was given 10 mg of IV dexamethasone on admission. Neurology has been consulted and final recommendations pending. Radiation Oncology has also been consulted. Additional history obtained from the patient at bedside. His son was at bedside. He states that since dexamethasone was started he is able to lift his RUE and move right hand and can now lift his right leg. He has dysphagia that made in relation to intracranial met development. He is not able to take anything PO at this time, has a suction device for his saliva. He has a headache on left side of scalp where biopsy was taken. He denies dizziness. No respiratory complaints. Last BM 2 days ago. Allergies Allergy/AdvReac Type Severity Reaction Status Date / Time morphine AdvReac Unknown SLOWS HR Verified 03/19/18 10:34 Home Medications Home Medications Medication Instructions Recorded Confirmed Type diazepam [Valium] 5 mg PO HS PRN 03/15/18 04/05/18 History ibuprofen [Advil] 200 mg PO QID PRN 03/15/18 04/05/18 History omeprazole 20 mg PO QAM 03/15/18 04/05/18 History triamcinolone acetonide 1 applic TOPICAL BID 03/15/18 04/05/18 History acetaminophen [Tylenol Extra 500 - 1,000 mg PO Q6H PRN 04/05/18 04/05/18 History Strength] Patient History Medical History Metastatic squamous cell carcinoma (Chronic) s/p resection of scalp in Jan 2017, s/p resection of mets to RLL by Dr. 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 Surgical History History of herniorrhaphy (Resolved) right inguinal hernia repair History of cholecystectomy (Resolved) History of bowel resection (Resolved) HX -- IBS and needed due to unable to pass colonoscope History of esophagogastroduodenoscopy (EGD) (Resolved) Family History Father Cancer lung cancer Lung disease worked at [employer] Mother Heart disease Mother HTN (hypertension) Social History marital status: / Current Living Situation: Alone Other Information That Helps Us Care for You: No Feels Safe at Home: Yes Safety Concerns: Feels Safe At This Time Smoking Status: Current every day smoker Tobacco Type: pipe Do You Dip or Chew Tobacco: No Second Hand Exposure: No Tobacco Cessation Education Requested by Patient: No Hx Alcohol Use: Yes Alcohol type: beer Alcohol Intake Frequency: holidays/ special occasions only Hx Substance Use: No Beliefs That Will Affect Care: None Preferred Language: Tongan Communication Ability: Effective Business Strategist Required: No Review of Systems See HPI Physical Exam 2 Vital Signs (Past 24 Hours): Last Vital Signs Temp 36.3 C L 04/06/18 10:55 Pulse 86 04/06/18 10:55 Resp 16 04/06/18 10:55 BP 138/72 04/06/18 10:55 Pulse Ox 98 04/06/18 10:55 Constitutional: well nourished and + frail appearing Respiratory: normal respiratory effort, lungs clear to auscultation Cardiovascular: Rate/Rhythm: regular rate and regular rhythm Gastrointestinal (Abdomen): Inspection/Auscultation: normal bowel sounds Percussion/Palpation: abdomen soft; abdomen nontender Skin: Left side of scalp with alopecia and stitches from recent biopsy Neurologic: moves all extremities (able to raise RUE and RLE, about 20 deg, previously reports was unable to ) and awake Speech / Cognition: + abnormal speech Lymphatic: no cervical lymphadenopathy Results & Data Laboratory Results CBCD/BMP reviewed from today; LFTs from 04/05/18 reviewed Diagnostic Findings Brain MRI from 04/05/18: 1. Intra-axial 2.2 cm mass in the left rachael most suspicious for a metastatic lesion. Correlate with the history of malignancy. Surrounding abnormal signal intensity may represent reactive vasogenic edema or , less likely, regional invasion. Differential considerations include primary glioma or lymphoma. 2. Extensive periventricular and subcortical white matter signal abnormalities , most likely chronic small vessel ischemic change. However, foci of abnormal signal within the temporal lobe white matter would not be characteristic of this entity. Given the absence of additional enhancing lesions, it is doubtful that these temporal lobe abnormalities relate to the intra-axial mass. Correlate for history of demyelinating disease. CTA neck from 04/05/18: 1. 2.1 cm enhancing pontine lesion is suspicious for neoplasm. Correlation with contrast-enhanced MRI of the brain recommended. 2. 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 3. Otherwise unremarkable CTA without dissection, high-grade stenosis or proximal branch occlusion. CTA head from 04/05/18: 1. No evidence of aneurysm, focal vessel occlusion, or significant stenosis of the intracranial arteries. 2. Rim enhancing pontine lesion. This is suboptimally evaluated. Contrast enhanced MR brain recommended. Differential considerations include a subacute infarct or metastatic lesion. CXR from 04/05/18: 1. No acute cardiopulmonary findings. 2. The 3.2 cm right lower lobe FDG avid mass-like abnormality on PET/CT of March 09, 2018 is not evident on this exam, possibly due to technique.
--- NOTE | 2018-04-06 18:11 | Hospitalist Progress Note ---
Date of Service April 06, 2018 Assessment & Plan (1) Hemiparesis of right dominant side: presented with rt sided weakness /hemiparesis due to metastatic brain lesion involving left side of rachael MRI of brain : . Intra-axial 2.2 cm mass in the left rachael most suspicious for a metastatic lesion. Correlate with the history of malignancy. Surrounding abnormal signal intensity may represent reactive vasogenic edema or, less likely, regional invasion. Differential considerations include primary glioma or lymphoma. hx of metastatic recurrent Sq cell Ca pt started on IV Dexamethasone given evidence of vasogenic edema noted in MRI of brain radiation oncology consulted case D/w with Dr Lino over all prognosis remains poor Present on Admission?: Yes (2) Metastatic squamous cell carcinoma: diagnosed with SCC of scalp with resection in Jan [address] Myrick at [facility] followed by radiation April 2017. Developed pleuritic chest pain in Jan 2018 PET scan on 03/09/18 and CTA of chest shows metastatic SCC on RLL, s/p resection by Dr. Carroll on Mar 17 2018. pt had office visit with Heme Onc Dr Pratik Reeder on 03/29/18 repeat PET scan was negative for malignancy Planned was for return to clinic on April 2018 for further eval for systemic chemotherapy versus immunotherapy. pt been followed at dermatology for recurrent scalp lesion pn 04/04/18 had excision. Pathology pending Heme onc consult requested Present on Admission?: Yes (3) Dysphagia: First noted before EGD March, but has progressed -EGD (03/07/18) with normal results and pathology. Recommended starting prilosac 20mg daily x 8 weeks -Has equal difficulty with solid and liquid foods -Son notes more frequent aspirations at home - appreciate input from speech pathology severe esophageal dysmotility noted with aspiration of minute amount of barium also no relaxation of lower esophageal sphincture noted result of VFSS explained to Patient and son pt is unable to swallow saliva , and continued to suction out remaining portion of barium regarding option for PEG tube placement , pt was very emotional but willing to proceed for feeding tube if that is the only means to provide chcf nutrition GI eval will be requested Present on Admission?: Yes (4) Esophageal dysphagia: due to metastatic brain lesion on left rachael with associated severe vasogenic edema -possible causing mass effect to cranial nerve severe bedside dysphagia noted , unable to manage oral secretions VFSS -severe esophageal dysmotility with no evidence of peristalsis /absence of lower esophageal sphincter -leading to regurgitation and aspiration of barium ordered for NPO , radiation oncology consulted for palliative raditation tx will need to consider feeding tube ( if pt is willing ) pt aware of the poor prognosis wants to d/w radiation oncology and heme onc ist before deciding for feeding tube Present on Admission?: Yes (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: Present on Admission?: Yes (6) Vasogenic cerebral edema: due to metastatic brain lesion 2.1 cm on left rachael -evident in MRI of brain started on IV decadron radiation oncology consulted CODE STATUS : d/ w patient , aware of the poor prognosis has living will does not want heroic measures /CPR /mechanical ventilation DNR/DNI role of palliative care /hospice discussed with both pt and son Patient does not want referral to hospice yet wants to have discussion with Heme onc and radiation oncology Present on Admission?: Yes Subjective pt returned from VFSS -shows marked esophageal dysmotility has marked weakness of rt side both upper and lower ext ( rt sided hemiparesis with hemiplegia ) mentions of having intermittent headache no visual problem mentions that he had chocking episode with the barium using suction draining remaining of the barium from oral cavity Son present at bedside VFSS shows severe esophageal dysmotility /paresis not safe for Oral intake cont NPO till further decision for feeding tube Physical Exam 2 Vital Signs (Past 24 Hours): Last Vital Signs Temp 36.3 C L 04/06/18 15:00 Pulse 72 04/06/18 15:00 Resp 17 04/06/18 15:00 BP 139/75 04/06/18 15:00 Pulse Ox 97 04/06/18 15:00 Physical Exam: GENERAL:no apparent distress , using suction continuously HEENT: Sclera nonicteric, pink-purple bilateral equal reactive to light extraocular muscle intact Mouth : thick white secretion requiring constant suction Lungs: no wheeze or rales Cardiovascular: Regular S1 and S2, no murmur or gallop, no JVD, no lower extremity edema Abdomen: Soft, nontender, bowel sounds active, Extremities: amputation of multiple fingers on left hand Neuro: dense rt sided hemiparesis Psych: Alert awake oriented x3: _ (1) Dysphagia Dysphagia type: esophageal phase Qualified Code(s): R13.10 - Dysphagia, unspecified (2) Hemiparesis of right dominant side Hemiparesis etiology: non-cerebrovascular etiology Qualified Code(s): G81.91 - Hemiplegia, unspecified affecting right dominant side (3) Amputation of finger of left hand Encounter type: sequela Qualified Code(s): S68.119S - Complete traumatic metacarpophalangeal amputation of unspecified finger, sequela
--- NOTE | 2018-04-06 21:22 | CT Scan Report ---
CT chest wo con CT DOSE: 214.78 mGy.cm HISTORY: Metastatic disease metastatic squamous cell carcinoma TECHNIQUE: Multiaxial CT images of the chest were performed without contrast. A dose lowering techni que was utilized adhering to the principles of ALARA. COMPARISON: 02/18/2018 FINDINGS: Improved exam. Lungs demonstrate no focal infiltrate or nodular pathology in their mid to u pper lung regions. Pleural thickening and linear parenchymal scarring of both lung bases is diminishe d. There is mild residual. The subcarinal and tracheoesophageal recess lesion has diminished in volume by least 50%. Maximum dim ension has diminished from 2. 7 to 1.7 cm. There are several small mediastinal and/or hilar nodes all which are less than 1 cm. The esophageal wall thickening procedure described is diminished throughout with moderate residual. R enal peripelvic cysts are similar. Cystic nodule versus small gastric diverticulum anterior aspect of the left hepatic dome border appear similar. The bony structures continue to show mild degenerative change. No well-defined lytic or blastic process is appreciated. IMPRESSION: 1. Considerable improvement in the examination compared to the prior study. 2. Moderate residual bibasilar linear atelectatic and pleural thickening changes. 3. Mediastinal and periesophageal findings are also considerably improved with an estimated volume im provement of 50%. 4. Moderate residual esophageal wall thickening. The above report was generated using voice recognition software. It may contain grammatical, syntax or spelling errors. Electronically signed by: Maksim Sage M.D. 04/06/2018 9:21 PM
[2018-04-06] MEDS: NYSTATIN SUSP 500,000 U/5 ML UDC PO SCH (22:16)
[2018-04-07] MEDS: DEXAMETHASONE SOD PHOSPHATE 6 MG in SYRINGE 0 ML IV SCH ×3 (00:12→13:03)
[2018-04-07] MEDS: D5W AND 1/2NSS + 20MEQ KCL 20 MEQ/1,000 ML BAG IV SCH ×2 (00:16→18:48)
[2018-04-07] MEDS: PANTOprazole 40 MG in SYRINGE 0 ML IV SCH (09:34)
[2018-04-07] MEDS: NYSTATIN SUSP 500,000 U/5 ML UDC PO SCH ×4 (09:36→21:13)
--- NOTE | 2018-04-07 09:43 | Radiation OncologyConsultation ---
Date of Consultation April 07, 2018 Assessment & Plan (1) Metastatic squamous cell carcinoma: The patient has developed a 2.1 cm lesion in the left side of the rachael with surrounding edema that is consistent with a metastatic lesion given his prior diagnosis of a sarcomatoid squamous cell carcinoma and evidence of metastatic lung disease recently excised. There is surrounding edema. The patient has been started on steroids and has had partial improvement. Unfortunately he continues to have right-sided weakness although improved and continues to have difficulty swallowing which is not improved with the use of steroids. Recommendations: I spoke with the patient and his 2 sons about the option of palliative radiation. I indicated that with a solitary lesion the patient would be a potential candidate for a targeted stereotactic treatment. I indicated that the size of the lesion was certainly compatible with this treatment option however the location is somewhat problematic. I have reviewed the MRI with radiology and believe we can very accurately target this lesion itself. I therefore suggested that we will be able to proceed with a fractionated course of stereotactic treatment. I reviewed with the patient and his sons the potential risks and side effects of a course of stereotactic treatment to the rachael. The patient is exhibiting persistent neurologic symptoms. I indicated that it is possible that after completion of the course of palliative radiation that these neurologic symptoms including right-sided weakness and difficulty swallowing that we could see some continued improvement. However it is also possible that there would be no improvement and these deficits would persist. A consent form was reviewed with the patient and his sons. His son who is power of psych therapist reviewed the risks and initialed them. He then reviewed the consent form and signed the consent form which was ultimately witnessed. Plan: We plan to simulate the patient today with IV contrast. This data will be fused with the MRI. With this information we will be able to identify the target volume and utilizes for treatment planning. The plan presently is to proceed with a course of stereotactic radiation to encompass the target volume with a minimum dose of 400 cGy per fraction but an internal dose that could be as high as 600 cGy. The patient will receive 5 treatments delivered every other day. History of Present Illness Reason for Consultation: A consultation was called to evaluate the solitary brain met for possible radiation treatments. Attending Physician: Franchesca Cano MD History of Present Illness [place] Bernarda sampling was also performed.Mr. Lujan is an 82-year-old male who was found to have a lesion on his scalp in January 2017. Biopsy and subsequent excision confirmed a squamous cell carcinoma, sarcomatoid poorly differentiated. Patient underwent a complete excision with graft. Patient subsequently received a course of postoperative radiation at [facility] starting in January 2017 and completing in early April 2017. 05/2016. Patient noted a small bump in the left side of the scalp. This lesion continue to increase and became crusted and did not heal. 01/15/2017. Dr. Christiansen performed a biopsy of this lesion confirming a malignant spindle cell neoplasm with positive margins. 01/2017. Patient was seen by Dr. Shearer to evaluate chest imaging. No abnormal lesions were appreciated. 02/15/2017. Patient undergoes wide excision with skin grafting by Dr. Shearer. 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 Final margins were negative. 01/2017. Patient was seen by Dr. Myrick, radiation oncologist at [facility] who recommended adjuvant postoperative radiation. This was started and completed in April 2017. The patient has been followed and was recommended to have recommended follow-up imaging studies with a CT scan of the chest in mid 2017. The patient however did not go for the studies. 01/2018. Patient developed increasing chest pain with difficulty breathing. He presented to the emergency department at [facility]. 02/18/2018. Patient undergoes chest CTA. A soft tissue attenuating lesion of the tracheoesophageal recess was identified measuring 2.2 x 2.7 x 1.9 cm. There is unchanged hypodense 1.9 cm lesion of the left hepatic lobe suggestive of a hepatic cyst. The differential diagnosis would include pathologic lymph node or pulmonary neoplasm with additional testing or biopsy recommended. 03/09/2018. Patient had PET/CT scan performed. This revealed a 3.2 cm mass lesion in the paramediastinal right lower lobe located posterior to the right mainstem bronchus. This is intensely FDG avid and was worrisome for neoplasm. There was no other evidence of FDG avid metastatic disease noted. 03/09/2018. Patient seen by Dr. Pratik Reeder for evaluation and treatment recommendations. Patient was also seen by Dr. Neal Carroll. He recommended consideration of a robotic assisted right thorascopic wedge resection and excision. The patient agreed and this was performed. 03/17/2018. Patient undergoes right robotic assisted thorascopic wedge resection and excision. Bernarda sampling was also performed. FINAL DIAGNOSIS A. LUNG, RIGHT LOWER LOBE, BIOPSY: 1. 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 2. SEE COMMENT. B. LUNG, RIGHT LOWER LOBE, WEDGE RESECTION: 1. 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 2. SEE COMMENT. C. LYMPH NODE, R9 REGION, EXCISION: NO METASTATIC CARCINOMA IDENTIFIED IN ONE LYMPH NODE (0/1). D. LYMPH NODE, R2 REGION, EXCISION: NO METASTATIC CARCINOMA IDENTIFIED IN ONE LYMPH NODE (0/1). E. LYMPH NODE, R4 REGION, EXCISION: NO METASTATIC CARCINOMA IDENTIFIED IN ONE LYMPH NODE (0/1). F. LYMPH NODE, R10 REGION, EXCISION: 1. METASTATIC POORLY DIFFERENTIATED SARCOMATOID SQUAMOUS CELL CARCINOMA IN ONE LYMPH NODE (1/1). 2. SEE COMMENT. G. LYMPH NODE, R11 REGION, EXCISION: NO METASTATIC CARCINOMA IDENTIFIED IN ONE LYMPH NODE (0/1). H. "SECTIONS OF RIGHT LOWER LOBE MASS", EXCISION: 1. 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 2. SEE COMMENT. COMMENT: Per report, this patient has a history of a 2 cm poorly differentiated sarcomatoid squamous cell carcinoma of the scalp which was excised at [facility] on 02/15/2107 ([facility] report: [id number]). That tumor showed patchy but strong positivity for cytokeratin and focal weak positivity for P63. The current tumor is most consistent with metastatic disease from that primary scalp neoplasm. The staple line margin (yellow ink) is the only margin that can be adequately assessed and this appears negative. Case #: [id number]. 03/19/2018. Patient developing dysphasia and was seen by Dr. Neal Carroll. He evaluated the patient who appeared stable and was discharged from the emergency department. 03/29/2018. Patient returns for follow-up with Dr. Pratik Reeder. He noted that the patient has improved and recovered from his surgery. He recommended getting foundation one testing including PD-L1 for evaluation about possible future management with systemic chemotherapy versus immunotherapy. He arrange for further follow-up. 04/01/2018. Noncontrast head CT scan was performed for mental status change and right-sided weakness. No obvious lesions or masses were identified at that time. 04/05/2018. Patient returns to the emergency department with complaint of right- sided weakness and difficulty swallowing. The patient noted a complaint of constant right-sided progressive weakness worsening over the past prior 2 days and the difficulty swallowing which had been present previously but did temporarily improve. Examination at that time showed the patient was unable to lift his right leg and decreased movement of his right arm. 04/05/2018. A CT angios of the head with contrast was performed. This showed no evidence of aneurysm, focal vessel occlusion or stenosis. However it showed a rim-enhancing pontine lesion that was suboptimally evaluated recommended MRI of the brain. 04/05/2018. MRI of the brain is performed with thin slices. This showed an intra -axial 2.2 cm mass in the left rachael most suspicious for a metastatic lesion. Given his history of primary squamous cell carcinoma with a primary glioma or lymphoma are less likely. There was extensive periventricular and subcortical white matter signal abnormality most likely chronic. There was significant surrounding T2 hyperintensity extending into the cerebellar peduncles left greater than right, brachium pontis bilaterally and portal medullary junction. No other brain lesions were identified. 04/06/2018. Patient was seen by radiation oncology for evaluation and discussion of the palliative radiation treatment options. 04/06/2018. Patient seen by . CT scan of the chest performed showing no evidence of recurrent or metastatic chest disease. 04/07/2018. CT scan of the abdomen and pelvis is pending to complete metastatic workup. Allergies Allergy/AdvReac Type Severity Reaction Status Date / Time morphine AdvReac Unknown SLOWS HR Verified 03/19/18 10:34 Home Medications Home Medications Medication Instructions Recorded Confirmed Type diazepam [Valium] 5 mg PO HS PRN 03/15/18 04/05/18 History ibuprofen [Advil] 200 mg PO QID PRN 03/15/18 04/05/18 History omeprazole 20 mg PO QAM 03/15/18 04/05/18 History triamcinolone acetonide 1 applic TOPICAL BID 03/15/18 04/05/18 History acetaminophen [Tylenol Extra 500 - 1,000 mg PO Q6H PRN 04/05/18 04/05/18 History Strength] Patient History Medical History Metastatic squamous cell carcinoma (Chronic) s/p resection of scalp in Jan 2017, s/p resection of mets to RLL by Dr. 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 Surgical History History of herniorrhaphy (Resolved) right inguinal hernia repair History of cholecystectomy (Resolved) History of bowel resection (Resolved) HX -- IBS and needed due to unable to pass colonoscope History of esophagogastroduodenoscopy (EGD) (Resolved) Family History Father Cancer lung cancer Lung disease worked at [employer] Mother Heart disease Mother HTN (hypertension) Social History marital status: / Current Living Situation: Alone Other Information That Helps Us Care for You: No Feels Safe at Home: Yes Safety Concerns: Feels Safe At This Time Smoking Status: Current every day smoker Tobacco Type: pipe Do You Dip or Chew Tobacco: No Second Hand Exposure: No Tobacco Cessation Education Requested by Patient: No Hx Alcohol Use: Yes Alcohol type: beer Alcohol Intake Frequency: holidays/ special occasions only Hx Substance Use: No Beliefs That Will Affect Care: None Preferred Language: Arabic Communication Ability: Effective General Assistant Required: No Physical Exam 2 Vital Signs (Past 24 Hours): Last Vital Signs Temp 36.3 C L 04/07/18 07:14 Pulse 64 04/07/18 07:14 Resp 18 04/07/18 07:14 BP 122/66 04/07/18 07:14 Pulse Ox 96 04/07/18 07:14 Physical Exam: Mr. Lujan was seen lying in bed. His speech was slow but appropriate. He appeared at this time adequately nourished but frail. HEENT. Examination of the head reveals the graft site which is healthy with no induration or nodularity or site of recurrent or metastatic disease. There is hair loss consistent with the postoperative radiation that was delivered. Eyes , sclera white conjunctive are pink. Oral cavity there is some white changes noted in the teeth and the pharynx possibly related to recent barium swallowing study. Neck. There is no palpable pre-or postauricular adenopathy. There is no cervical or supraclavicular adenopathy appreciated. There is no evidence of carotid bruits. Chest. There is adequate air movement and the lungs appear clear to auscultation and percussion. Heart. There is a regular rhythm and a regular rate without murmurs appreciated. Abdomen. Is soft nontender no masses or organomegaly. Normal bowel sounds are noted. Extremities. There are no peripheral edema appreciated. Lymphatic. There is no head or neck lymphadenopathy, no axillary or inguinal adenopathy appreciated. Neurologic. The patient is alert and oriented. He does have slow speech but is able to express himself. There is normal movement and strength in the left arm and leg. The right arm shows decrease movement and strength 2-3/5. The right leg is able to be raised above the bed with muscle strength 2-3/5. Results Additional Studies 04/05/18 15:23 CT angio head w con Stat CT head/brain wo con Stat 04/05/18 15:24 ECG 12 lead EKG Stat XR chest 1V portable Stat 04/05/18 15:26 CT angio neck with con Stat 04/05/18 19:05 MR brain wo/w con Routine 04/06/18 11:45 FL video swallow Routine 04/06/18 20:40 CT chest wo con Routine Time Spent Attending I spent 30 minutes in discussion and examination of the patient and 30 minutes in discussion with referring physician, reviewing scans and discussion with medical oncology and preparation of this document. DIANELYS
[2018-04-07] MEDS: ACETAMINOPHEN 1000 MG/100 ML IV IV PRN (10:33)
--- NOTE | 2018-04-07 11:17 | Hospitalist Progress Note ---
Date of Service April 07, 2018 Assessment & Plan (1) Hemiparesis of right dominant side: presented with rt sided weakness /hemiparesis due to metastatic brain lesion involving left side of rachael MRI of brain : . Intra-axial 2.2 cm mass in the left rachael most suspicious for a metastatic lesion. Correlate with the history of malignancy. Surrounding abnormal signal intensity may represent reactive vasogenic edema or, less likely, regional invasion. Differential considerations include primary glioma or lymphoma. hx of metastatic recurrent Sq cell Ca pt started on IV Dexamethasone given evidence of vasogenic edema noted in MRI of brain IV dexamethasone dose increased to 6 mg every 6 hours Patient reports of mild improvement of weakness on right upper and lower extremity Started to have twitching sensation on right lower extremity since yesterday Able to lift up right leg radiation oncology consulted Appreciate input Patient is scheduled for radiation simulation today Possible radiation therapy starting from Wednesday (2) Metastatic squamous cell carcinoma: 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 Christiansen: Malignant spindle cell neoplasm, positive margin Status post wide excision with skin grafting by Dr. Shearer on [facility] 02/15/2017 Final pathology: Poorly differentiated sarcomatoid squamous cell carcinoma with perineural invasion, negative margin Was seen by radiation oncology Dr. Myrick at [facility] Status post adjuvant radiation treatment completed on April 2017 Developed pleuritic chest pain in Jan 2018 was seen at [facility] CT chest with contrast: Right upper lobe lung nodule PET scan on 03/09/18 and CTA of chest : FDG avid 3.2 into 2.7 cm paramediastinal right lower lobe soft tissue mass s/p resection by Dr. Carroll on Mar 17 2018. 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 pt been followed at dermatology for recurrent scalp lesion pn 04/04/18 had excision. 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 measuring about 3.5 x 2.5x2.5 cm 1 out of 5 lymph nodes positive for metastatic disease Overall considered to be metastatic disease from primary scalp neoplasm Status post resection of left scalp lesion on 04/04/2018 by dermatology Pathology still pending Presents with right hemiparesis with MRI of brain noted for metastatic mass on left rachael area Hematology oncology consult appreciated At present patient functional status is very poor to consider systemic chemo or immunotherapy Patient will be started with palliative radiation treatment Outpatient follow-up with hematology oncology Overall prognosis for recurrent metastatic squamous cell carcinoma remains poor Discussed with patient and patient's son Aware of the poor prognosis wants to hold off palliative care consult for now with patient and son Does not have any active pain issues, Plan is to continue with palliative radiation treatment, outpatient follow-up with hematology oncology If there is continued functional decline, with no treatment available, patient will consider hospice/palliative care (3) Dysphagia: First noted before EGD March, but has progressed -EGD (03/07/18) with normal results and pathology. Recommended starting prilosac 20mg daily x 8 weeks -Has equal difficulty with solid and liquid foods -Son notes more frequent aspirations at home - appreciate input from speech pathology severe esophageal dysmotility noted with aspiration of minute amount of barium also no relaxation of lower esophageal sphincture noted result of VFSS explained to Patient and son pt is unable to swallow saliva , and continued to suction out remaining portion of barium Discussed role of feeding tube/PEG tube Patient wants to hold off feeding tube placement for now, Months to see any improvement of swallowing after radiation treatment Patient will be started on PPN Have speech evaluation periodically to assess swallowing Hold off GI consult for feeding tube for now (4) Esophageal dysphagia: due to metastatic brain lesion on left rachael with associated severe vasogenic edema -possible causing mass effect to cranial nerve severe bedside dysphagia noted , unable to manage oral secretions VFSS -severe esophageal dysmotility with no evidence of peristalsis /absence of lower esophageal sphincter -leading to regurgitation and aspiration of barium ordered for NPO , radiation oncology consulted for palliative raditation tx pt aware of the poor prognosis Wants to proceed with radiation treatment to assess if improves his dysphagia Hold off on GI consult for PEG tube for now' Ordered for PPN, patient and son aware it is only a temporary measure, (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: (6) Vasogenic cerebral edema: due to metastatic brain lesion 2.1 cm on left rachael -evident in MRI of brain started on IV decadron radiation oncology consulted Getting radiation simulation today, possible start with palliative radiation on Wednesday CODE STATUS : d/ w patient , aware of the poor prognosis has living will does not want heroic measures /CPR /mechanical ventilation DNR/DNI role of palliative care /hospice discussed with both pt and son Patient does not want referral to hospice yet Wants to proceed with radiation therapy Subjective Patient mentions of improvement of right upper extremity strength, able to make a fist, Started to have twitching sensation on right lower extremity, able to lift up right lower extremity, change from yesterday Patient mentions that improvement noted after starting on higher dose of IV steroids Still requiring frequent suctioning of oral secretions No cough Shortness of breath Complaints of left-sided unilateral headache 3 out of 10 No change in vision Scheduled for radiation simulation this morning Physical Exam 2 Vital Signs (Past 24 Hours): Last Vital Signs Temp 36.3 C L 04/07/18 07:14 Pulse 64 04/07/18 07:14 Resp 18 04/07/18 07:14 BP 122/66 04/07/18 07:14 Pulse Ox 96 04/07/18 07:14 Constitutional: WD/WN, vitals as above no acute distress ENMT: Thick white coated tongue, increased mucus Neck: trachea midline, no thyromegaly Respiratory: normal respiratory effort; no respiratory distress and no cough Cardiovascular: RRR, no murmur, no edema Rate/Rhythm: regular rate and regular rhythm Gastrointestinal (Abdomen): Inspection/Auscultation: normal bowel sounds; no abdominal edema Percussion/Palpation: abdomen soft; abdomen nontender Musculoskeletal: Limited movement on right upper and lower extremity, muscle strength to out of 5 Neurologic: awake Speech / Cognition: + expressive aphasia (Speech more fluent, improved from yesterday) Right upper and lower extremity hemiparesis , strength improved since yesterday Psychiatric: A+Ox3, euthymic affect _ (1) Dysphagia Dysphagia type: esophageal phase Qualified Code(s): R13.10 - Dysphagia, unspecified (2) Hemiparesis of right dominant side Cerebrovascular disease type: Hemiparesis etiology: non-cerebrovascular etiology Qualified Code(s): G81.91 - Hemiplegia, unspecified affecting right dominant side (3) Amputation of finger of left hand Encounter type: sequela Qualified Code(s): S68.119S - Complete traumatic metacarpophalangeal amputation of unspecified finger, sequela
[2018-04-07 13:11] LABS: BUN Creatinine Ratio 27.9 (10-20); Creatinine Clr Calc Pharmacy 47.6 ml/min; Est GFR (African American) 74.9; Est GFR (Non-African American) 64.6
--- NOTE | 2018-04-07 15:23 | Pharmacy Report ---
Pharmacy PN Initial Consult - Date of Service April 07, 2018 - Scope Pharmacy has been consulted to manage parenteral nutrition orders and order appropriate labs. As part of the Nutrition Support Team guidelines, pharmacy will work in conjunction with dietary when determining the patients caloric needs. - Subjective The patient is a 82 year old M admitted on 04/05/18 19:03 for RT SIDED WEAKNESS. Patient is to receive parenteral nutrition for [poor/inadequate PO intake >5 days]. Pertinent PMH: squamous cell cancer, dysphagia, osteoarthritis - Objective Height: 5 ft 6 in Weight: 64.4 kg Diet: NPO Vascular Access:: peripheral only Intake & Output (Last 24Hrs): Intake & Output 04/05/18 04/06/18 04/07/18 04/08/18 06:59 06:59 06:59 06:59 Intake Total 500 / 500 2000 / 2000 Output Total 300 / 300 875 / 875 200 / 200 Balance 200 / 200 1125 / 1125 -200 / -200 Weight 61 kg 64.4 kg 64.4 kg Laboratory Data (Last 24 Hrs):: 04/07/18 04/07/18 04/07/18 12:30 12:30 12:30 Sodium 137 Potassium 4.0 Chloride 107 Carbon Dioxide 25 BUN 30 H Creatinine 1.06 Glucose 127 H Calcium 9.0 Phosphorus 3.3 Magnesium 1.9 Nutrition Assessment:: Please refer to the Notes section of the EMR for the most recent marketing specialist note. - Assessment Pharmacy consulted for PPN nutrition. Patient with squamous cell cancer and history of progressed dysphagia. Dysphagia first noted on EGD in March, however since then very poor oral intake and frequent aspiration. Patient had video swallow test performed today which revealed severe esophageal dysmotility with no evidence of peristalsis / absence of lower esophageal sphincter. Provider discussed option of feeding tube/PEG tube with family and they would like to hold off on placement for now. Discussed with provider that PPN will not provide adequate nutrition for the patient and that for termite renewal inspector nutrition ideally a central TPN would be better. Provider is aware of this and will like to proceed with PPN. Family is waiting to consult palliative care until Wednesday after the patient receives radiation to see if there is any improvement with dysphagia. - Plan For day 1 of PN administration, the following will be ordered: Macronutrients Amino acids 80 grams/day Dextrose 50 grams/day Lipids 25 grams/day Micronutrients Combined electrolytes 20 mL - contains 35 mEq Na, 20 meq K, 4.5 mEq Ca, 5 mEq Mg , 35 mEq Cl, 29.5 mEq acetate per 20 mL Sodium phosphate 21 MMol Multivitamins 10 mL Trace Elements 10 mL Total volume 1900 mL to be infused over 24 hrs will provide 740 kcal/day Final osmolarity 607mOsm/L (maximum for PPN is 600 mOsm/L) - okay Labs to be ordered per PN order protocol Pharmacy will follow and adjust parenteral nutrition orders on a daily basis. Thank you.
[2018-04-07] MEDS ORDERED: CUSTOM PERIPHERAL PN IV SCH (16:00)
[2018-04-07] MEDS ORDERED: TPN/PPN CONSULT PHARMACY PRN (16:00)
--- NOTE | 2018-04-07 18:03 | Hematology/Oncology Prog Note ---
Date of Service April 07, 2018 Imp: 82 year old male with history of metastatic squamous cell carcinoma s/p wide excison of scalp lesion and RT previously, recently found to have lung mass and underwent resection showing metastatic sarcomatoid SCC, now with 2.2cm left rachael lesion concerning for metastasis and dysphagia and right sided weakness -continue dexamethasone 6mg IV Q6h and control BP and glucose, PPI prophylaxis -recommend neurology consultation and GI consultation after discussion with the patient and his son he said he is agreeable to have the neurology and GI consult at [facility] but reiterates that he declines transfer to tertiary center - He and his son are interested in him receiving RT, spoke to Dr Mercado today and he plans for RT -discussed recommendations with Dr Cano. Also recommend consider palliative care consult as well for goals of care and support for patient if there is no improvement in condition and repeat brain imaging. He was not keen on that, states wants to see how he is when he does RT. Addendum: I tiger texted Dr Cano and she saw patient but he refused repeat brain imaging at this time. recommend give him dexamethasone 10mg IV x1 for next dose then continue 6mg IV Q6h Subjective Patient seen and examined and I discussed with patient and his son at bedside complain of dry mouth, using ice chips still has dysphagia, getting PPN had headache earlier today but states not having pain at this time has fatigue still remains with significant right sided weakness, He said does not want any transfer to tertiary center and said he is agreeable to RT Discussed with Dr Mercado today Physical Exam 2 Vital Signs (Past 24 Hours): Last Vital Signs Temp 36.3 C L 04/07/18 15:08 Pulse 59 L 04/07/18 15:08 Resp 18 04/07/18 15:08 BP 158/77 H 04/07/18 15:08 Pulse Ox 97 04/07/18 15:08 Gen: awake, appears chronically ill and frail, answers appropriately and follows commands oriented x3 HEENT: anicteric no thrush somewhat dry mucosa Lungs: CTAB CV: S1 S2 RRR Abd: +BS soft NT Ext: no edema Neuro: +right sided weakness, able to grasp with right hand but weak, unable to lift right arm or leg, moves right foot but it is weak, Results & Data Diagnostic Findings CT chest 1. Considerable improvement in the examination compared to the prior study. 2. Moderate residual bibasilar linear atelectatic and pleural thickening changes. 3. Mediastinal and periesophageal findings are also considerably improved with an estimated volume improvement of 50%. 4. Moderate residual esophageal wall thickening.
[2018-04-07] MEDS ORDERED: DEXAMETHASONE SOD PHOSPHATE 10 MG in SYRINGE 0 ML IV ONE (18:30)
[2018-04-07] MEDS ORDERED: levETIRAcetam 750 MG in DEXTROSE 5% 100 ML IV ONE (18:45)
[2018-04-07] MEDS: ATROPINE SULFATE 1% OP SOLN 5 ML BTL SL PRN (21:14)
[2018-04-08] MEDS: DEXAMETHASONE SOD PHOSPHATE 6 MG in SYRINGE 0 ML IV SCH ×4 (00:53→18:22)
[2018-04-08] MEDS: ATROPINE SULFATE 1% OP SOLN 5 ML BTL SL PRN ×2 (00:56→09:25)
[2018-04-08 08:40] LABS: BUN Creatinine Ratio 36.4 (10-20); Calcium 8.8 mg/dl (8.5-10.1); Est GFR (African American) 79.4; Est GFR (Non-African American) 68.5; Phosphorus 3.4 mg/dl (2.5-4.9); Potassium 3.9 mmol/L (3.5-5.1)
[2018-04-08] MEDS: PANTOprazole 40 MG in SYRINGE 0 ML IV SCH (09:27)
[2018-04-08] MEDS: NYSTATIN SUSP 500,000 U/5 ML UDC PO SCH ×4 (09:27→21:00)
[2018-04-08] MEDS ORDERED: IOVERSOL 100ml IV PRN (11:36)
--- NOTE | 2018-04-08 11:40 | CT Scan Report ---
CT head/brain wo con CLINICAL HISTORY: 82 years-old Male presenting with brain mets /worsening of symptom . TECHNIQUE: Multidetector CT imaging of the head was performed without the use of intravenous contrast . IV contrast: None. One or more dose lowering techniques were used consistent with the principles of ALARA (as low as reasonably achievable), including automatic exposure control, mA or kV adjustment t o individual patient size, and/or use of iterative reconstruction. COMPARISON: 04/05/2018 and Brain MR from 04/05/2018. CT DOSE (mGy.cm): The estimated cumulative dose is 537.48 mGy.cm. FINDINGS: Plating Foreman topogram: Unremarkable. Ventricles and sulci normal in size. No hemorrhage. 2.3 cm lesion in the left aspect of the ventral p ons is now peripherally hyperdense, which represents a change from prior. Mild hypodensity in the lef t cerebral peduncle. Periventricular and subcortical white matter hypoattenuation, nonspecific but li bettina indicative of chronic small vessel ischemic change. No acute territorial infarct. No mass effect or midline shift. No extra-axial fluid collection. Paranasal sinuses and mastoid air cells clear. Ca lvarium intact. Bilateral table mountain lenses are absent. IMPRESSION: 1. Evidence of interval internal/peripheral hemorrhage within the known left pontine lesion. No new lesion allowing for noncontrast technique. 2. Chronic small vessel ischemic change. Electronically signed by: Jay Ledbetter M.D. 04/08/2018 11:39 AM
--- NOTE | 2018-04-08 11:50 | CT Scan Report ---
CT abd pelvis IV con only CLINICAL HISTORY: 82 years-old Male presenting with metastatic sq cell Ca eval for mets . TECHNIQUE: Multidetector CT of the abdomen and pelvis was performed after the administration of intra venous contrast. IV contrast: 93 mL of Optiray 320. One or more dose lowering techniques were used co nsistent with the principles of ALARA (as low as reasonably achievable), including automatic exposure control, mA or kV adjustment to individual patient size, and/or use of iterative reconstruction. COMPARISON: PET/CT from 03/09/[address] from 2015. CT DOSE (mGy.cm): The estimated cumulative dose is 375.15 mGy.cm. FINDINGS: Wheel Worker topogram: Cholecystectomy clips. Barium contrast noted in the colon. Lung bases: Minimal dependent changes likely atelectasis. The right lower lobe pulmonary lesion is no t included within the [id number]. Several solid pulmonary nodules evident at the right lung base i n the right lower lobe (series 3 image 21). The largest measures 5 mm. Normal heart size. No pericard ial or pleural effusion. Liver: Normal morphology. Well-defined hypodense lesion in the lateral left hepatic lobe as on prior exam compatible with hepatic cysts. Additional subcentimeter well-defined hypodensity in the left hep atic lobe likely also cyst. These were present in 2015. Patent hepatic vasculature. Biliary: Mild biliary ductal prominence likely a reservoir effect in the post cholecystectomy state. Gallbladder surgically absent. Pancreas: Moderate parenchymal atrophy. Spleen: Normal. Adrenal glands: Normal. Kidneys and ureters: Parapelvic and parenchymal cysts evident bilaterally. No nephrolithiasis or hydr onephrosis. Bladder: Normal. Pelvic organs: Prostate enlargement likely secondary to benign prostatic hyperplasia. Bowel: Large diverticulum at the distal sigmoid colon. Pancolonic diverticulosis. Residual barium not ed in the transverse and ascending colon. Apparent wall thickening of the hepatic flexure and proxima l transverse colon likely due to underdistention. The appendix is not visualized. No bowel obstructio n. Peritoneal cavity: No free fluid or intraperitoneal gas. Lymph nodes: No enlarged lymph nodes in the abdomen or pelvis. Vasculature: Atherosclerosis of the normal caliber abdominal aorta. IVC patent. Abdominal wall: Small fat-containing umbilical hernia. Fat-containing bilateral inguinal hernias. Pos tsurgical changes of prior right inguinal hernia repair. Musculoskeletal: Osteopenia. Moderate compression fracture of L3. This is unchanged since 2015. No re tropulsion of the posterior cortex. Degenerative changes of the spine. No destructive osseous lesion. IMPRESSION: 1. No evidence of metastatic disease in abdomen or pelvis. 2. Three solid nonspecific nodules at the right lung base, the largest measuring 5 mm. Notably, thes e are below the level of PET resolution. 3. Diverticulosis. 4. Recurrent fat-containing right inguinal hernia. Electronically signed by: Jay Ledbetter M.D. 04/08/2018 11:49 AM
--- NOTE | 2018-04-08 12:59 | Procedure Note ---
EEG Procedure Note Date of Service April 08, 2018 Start / End Times Start Time: 05:47 End Time: 06:[address] Franchesca Cano History A 82 year old male with brainstem mass and right sided weakness. Noted to have right leg jerking yesterday. Concern for myoclonic jerks. EEG performed for evaluation of epileptiform activity. Home Medication List Home Medications Medication Instructions Recorded Confirmed Type diazepam [Valium] 5 mg PO HS PRN 03/15/18 04/05/18 History ibuprofen [Advil] 200 mg PO QID PRN 03/15/18 04/05/18 History omeprazole 20 mg PO QAM 03/15/18 04/05/18 History triamcinolone acetonide 1 applic TOPICAL BID 03/15/18 04/05/18 History acetaminophen [Tylenol Extra 500 - 1,000 mg PO Q6H PRN 04/05/18 04/05/18 History Strength] Inpatient Medication List Acetaminophen (Ofirmev) 1,000 mg IV Q8 PRN PRN Reason: Pain Stop: 05/06/18 13:13 Last Admin: 04/07/18 10:33 Dose: 1,000 mg Atropine Sulfate (Atropine Sulfate 1% Oph) 4 drops SL Q2H PRN PRN Reason: increased secretion Stop: 05/06/18 13:16 Last Admin: 04/08/18 09:25 Dose: 4 drops Admin: 04/08/18 00:56 Dose: 4 drops Admin: 04/07/18 21:14 Dose: 4 drops Gadobutrol (Gadavist 65ml) 6 ml IV ONCE PRN PRN Reason: Interaction Checking Stop: 04/09/18 21:20 Last Admin: 04/05/18 21:22 Dose: 6 ml Dexamethasone Sodium Phosphate (6 mg/ Syringe) 1.5 mls @ 1 mls/min IV Q6H MELANIE Stop: 05/07/18 00:00 Last Admin: 04/08/18 12:08 Dose: 1 mls/min Admin: 04/08/18 06:15 Dose: 1 mls/min Admin: 04/08/18 00:53 Dose: 1 mls/min Admin: 04/07/18 13:03 Dose: 1 mls/min Admin: 04/07/18 06:12 Dose: 1 mls/min Admin: 04/07/18 00:12 Dose: 1 mls/min Pantoprazole Sodium 40 mg/ (Syringe) 10 mls @ 5 mls/min IV DAILY MELANIE Stop: 05/07/18 08:59 Last Admin: 04/08/18 09:27 Dose: 5 mls/min Admin: 04/07/18 09:34 Dose: 5 mls/min Levetiracetam 500 mg/ Dextrose 105 mls @ 420 mls/hr IV Q12H MELANIE Stop: 05/08/18 08:59 Last Infusion: 04/08/18 09:42 Dose: Admin: 04/08/18 09:27 Dose: 420 mls/hr Ioversol (Optiray 320 100ml) 93 ml IV ONCE PRN PRN Reason: Interaction Checking Stop: 04/12/18 11:35 Last Admin: 04/08/18 11:37 Dose: 93 ml Nutrition (Parenteral) (Custom Peripheral Pn) 1 bag IV TODAY@1600 MELANIE; Protocol Stop: 04/08/18 15:59 Last Admin: 04/07/18 15:36 Dose: 1 bag Nystatin (Mycostatin) 5 ml PO QID [facility] Stop: 04/16/18 20:59 Last Admin: 04/08/18 09:27 Dose: 5 ml Admin: 04/07/18 21:13 Dose: 5 ml Admin: 04/07/18 19:28 Dose: Not Given Admin: 04/07/18 18:49 Dose: Not Given Admin: 04/07/18 09:36 Dose: 5 ml Admin: 04/06/18 22:16 Dose: 5 ml Discontinued Medications Atropine Sulfate (Atropine Sulfate 1% Oph) 2 drops SL Q4 PRN PRN Reason: increased secretion Stop: 05/06/18 15:59 Last Admin: 04/07/18 09:53 Dose: 2 drops Dexamethasone (Decadron) 10 mg IV NOW STA Stop: 04/05/18 19:20 Last Admin: 04/05/18 19:27 Dose: 10 mg Sodium Chloride (Nss) 500 mls @ 999 mls/hr IV .Q31M MELANIE Stop: 04/05/18 16:00 Last Infusion: 04/05/18 16:25 Dose: 0 mls/hr Admin: 04/05/18 15:51 Dose: 999 mls/hr Pantoprazole Sodium 40 mg/ (Syringe) 10 mls @ 5 mls/min IV BID MELANIE Stop: 04/09/18 20:59 Last Admin: 04/06/18 22:17 Dose: 5 mls/min Admin: 04/06/18 09:08 Dose: 5 mls/min Admin: 04/05/18 22:41 Dose: 5 mls/min Potassium Chloride/Dextrose/Sod Cl (D5w And 1/2nss + 20meq Kcl) 20 meq in 1, 000 mls @ 80 mls/hr IV .[id number] MELANIE Stop: 04/07/18 15:59 Last Admin: 04/07/18 18:48 Dose: Not Given Infusion: 04/07/18 15:36 Dose: 0 mls/hr Admin: 04/07/18 00:16 Dose: 80 mls/hr Infusion: 04/06/18 23:58 Dose: 80 mls/hr Admin: 04/06/18 11:28 Dose: 80 mls/hr Infusion: 04/06/18 11:11 Dose: 0 mls/hr Admin: 04/05/18 22:41 Dose: 80 mls/hr Dexamethasone Sodium Phosphate (4 mg/ Syringe) 1 mls @ 1 mls/min IV Q6 MELANIE Stop: 05/06/18 13:29 Last Admin: 04/06/18 17:54 Dose: 1 mls/min Admin: 04/06/18 13:59 Dose: 1 mls/min Dexamethasone Sodium Phosphate (10 mg/ Syringe) 2.5 mls @ 1 mls/min IV ONE ONE Stop: 04/07/18 18:32 Last Admin: 04/07/18 19:19 Dose: 1 mls/min Levetiracetam 750 mg/ Dextrose 107.5 mls @ 440 mls/hr IV 1845 ONE Stop: 04/07/18 18:59 Last Infusion: 04/07/18 19:35 Dose: 0 mls/hr Admin: 04/07/18 19:19 Dose: 440 mls/hr Ioversol (Optiray 320 125ml) 119 ml IV ONCE PRN PRN Reason: Interaction Checking Stop: 04/09/18 16:05 Last Admin: 04/05/18 16:06 Dose: 119 ml Miscellaneous (Stop Order) 1 ea N/A TODAY@1600 ONE Stop: 04/07/18 16:01 Last Admin: 04/07/18 18:49 Dose: Not Given Description This is a 21 electrode EEG with a single channel dedicated to limited EKG. The electrodes were placed in accordance with the International 10-20 system. The posterior dominant rhythm is 7-8 Hz. Anteriorly there is low amplitude indeterminant activity. No stage II sleep transients are seen. Photic stimulation does not ilicit any additional abnormalities. 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 There is no evidence of epileptiform activity. No electrographic seizures are recorded.
--- NOTE | 2018-04-08 13:05 | Neurology Consultation ---
Date of Consultation April 08, 2018 Assessment & Plan (1) Metastatic squamous cell carcinoma: 1. seizure like activity- metastatic lesion rachael - palliative treatment today-no surgical intervention advised due to location 2. keppra 500 mg twice daily - leg movement is likely flexor spasm and not seizure 3. decadron 6 mg q 6 hours for edema 4. palliative medicine - for direct of care 5. radiation oncology for palliative treatment and steriotactic treatment next week 6. aspiration precautions 7. outcome poor overall 8. EEG ordered Pt seen and examined, discussed with pt and son. There is increased tone rle with flexor spasm. Would rec gabapentin 100 mg bedtime if able to take orally. Can taper keppra as it is not needed. EEG can be cancelled. DESMOND Goff MD Supervising Physician Co-Signing Physician Notes I have seen and discussed above patient with Dr Shea Goff, neurology History of Present Illness Reason for Consultation: metastatic brain mass, myoclonic jerks Requesting Physician: Franchesca Cano MD Attending Physician: Franchesca Cano MD History of Present Illness Oscar is a 82 year old male with PMH -metastatic squamous cell carcinoma who presents with progressive weakness of right side x 2 weeks and unable to ambulate and was having difficulty swallowing (over the last few months). He was diagnosed with SCC of scalp with resection in Jan 2017 and underwent radiation by Dr. Myrick in April 2017. Developed pleuritic chest pain in Jan 2018 and metastatic SCC was found on RLL, which was resected by Dr. Carroll on Mar 17 2018. His family is bedside and say at [place] time he was chopping wood but for the last 2 weeks he has had increased difficulty with ambulation. He denies CP, SOB, abdominal pain, N, V. +right sided weakness. Allergies Allergy/AdvReac Type Severity Reaction Status Date / Time morphine AdvReac Unknown SLOWS HR Verified 03/19/18 10:34 Home Medications Home Medications Medication Instructions Recorded Confirmed Type diazepam [Valium] 5 mg PO HS PRN 03/15/18 04/05/18 History ibuprofen [Advil] 200 mg PO QID PRN 03/15/18 04/05/18 History omeprazole 20 mg PO QAM 03/15/18 04/05/18 History triamcinolone acetonide 1 applic TOPICAL BID 03/15/18 04/05/18 History acetaminophen [Tylenol Extra 500 - 1,000 mg PO Q6H PRN 04/05/18 04/05/18 History Strength] Patient History Medical History Metastatic squamous cell carcinoma (Chronic) s/p resection of scalp in Jan 2017, s/p resection of mets to RLL by Dr. 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 Surgical History History of herniorrhaphy (Resolved) right inguinal hernia repair History of cholecystectomy (Resolved) History of bowel resection (Resolved) HX -- IBS and needed due to unable to pass colonoscope History of esophagogastroduodenoscopy (EGD) (Resolved) Family History Father Cancer lung cancer Lung disease worked at [employer] Mother Heart disease Mother HTN (hypertension) Social History marital status: / Current Living Situation: Alone Other Information That Helps Us Care for You: No Feels Safe at Home: Yes Safety Concerns: Feels Safe At This Time Smoking Status: Current every day smoker Tobacco Type: pipe Do You Dip or Chew Tobacco: No Second Hand Exposure: No Tobacco Cessation Education Requested by Patient: No Hx Alcohol Use: Yes Alcohol type: beer Alcohol Intake Frequency: holidays/ special occasions only Hx Substance Use: No Beliefs That Will Affect Care: None Preferred Language: Sami Communication Ability: Effective Shampoo Technician Required: No Physical Exam 2 Vital Signs (Past 24 Hours): Last Vital Signs Temp 36 C L 04/08/18 12:13 Pulse 63 04/08/18 12:13 Resp 21 04/08/18 07:00 BP 156/74 H 04/08/18 12:13 Pulse Ox 98 04/08/18 12:13 Gen: alert to voice lungs course breath sounds CV RRR left hand deformity with ambutation of digits right hand edema left hand grasp intact, leg hip flex against gravity, right UE unable to grasp with hand, right leg minimal movement but upgoing toes. increased tone with flexor spasm in the right Results & Data Laboratory Results Abnormal lab results 04/08/18 Range/Units 07:59 BUN 37 H (7-18) mg/dl BUN/Creatinine Ratio 36.4 H (10-20) Glucose 144 H (70-99) mg/dl Diagnostic Findings MRI brain- 1. Intra-axial 2.2 cm mass in the left rachael most suspicious for a metastatic lesion. Correlate with the history of malignancy. Surrounding abnormal signal intensity may represent reactive vasogenic edema or, less likely , regional invasion. Differential considerations include primary glioma or lymphoma. Extensive periventricular and subcortical white matter signal abnormalities, most likely chronic small vessel ischemic change. However, foci of abnormal signal within the temporal lobe white matter would not be characteristic of this entity. Given the absence of additional enhancing lesions , it is doubtful that these temporal lobe abnormalities relate to the intra- axial mass. Correlate for history of demyelinating disease. CT chest- Considerable improvement in the examination compared to the prior study. Moderate residual bibasilar linear atelectatic and pleural thickening changes. Mediastinal and periesophageal findings are also considerably improved with an estimated volume improvement of 50%. Moderate residual esophageal wall thickening. video swallowing- Small amount of tracheal aspiration with nectar thick liquids. Delayed initiation of swallowing mechanism. Suspected marked esophageal dysmotility. CT head- Evidence of interval internal/peripheral hemorrhage within the known left pontine lesion. No new lesion allowing for noncontrast technique. Chronic small vessel ischemic change. CT abd/pelvis- No evidence of metastatic disease in abdomen or pelvis. Three solid nonspecific nodules at the right lung base, the largest measuring 5 mm. Notably, these are below the level of PET resolution. Diverticulosis. Recurrent fat-containing right inguinal hernia.
--- NOTE | 2018-04-08 14:08 | Pharmacy Report ---
PHA: Parenteral Nutrition Con - Date of Service April 08, 2018 - Scope Pharmacy was consulted on 04/08/18 to manage parenteral nutrition orders for this patient. - Subjective The patient is currently on day 2 of peripheral parenteral nutrition for poor nutrition, dysphagia, aspiration and currently on NPO status - Objective Height: 5 ft 6 in Weight: 67.2 kg Diet: NPO Vascular Access:: Peripheral vein access. Intake & Output (24hrs):: Intake & Output 04/06/18 04/07/18 04/08/18 04/09/18 06:59 06:59 06:59 06:59 Intake Total 500 / 500 1999 / 1999 1107.5 / 1107.5 0 / 0 Output Total 300 / 300 875 / 875 1150 / 1150 400 / 400 Balance 200 / 200 1125 / 1125 -42.5 / -42.5 -400 / -400 Weight 61 kg 64.4 kg 67.2 kg 67.2 kg Laboratory Data (Last 24 Hr):: 04/08/18 07:59 Sodium 138 Potassium 3.9 Chloride 104 Carbon Dioxide 28 BUN 37 H Creatinine 1.01 Glucose 144 H Calcium 8.8 Phosphorus 3.4 Magnesium 2.0 Triglycerides 100 Nutrition Assessment:: Please refer to the Notes section of the EMR for the most recent opener note. - Plan For day 2 of PN administration, the following will be ordered: Macronutrients Amino acids 80 grams/day Dextrose 100 grams/day Lipids 40 grams/day Micronutrients Combined electrolytes 20 mL - contains 35 mEq Na, 20 meq K, 4.5 mEq Ca, 5 mEq Mg , 35 mEq Cl, 29.5 mEq acetate per 20 mL Sodium phosphate 21 MMol Sodium chloride [] mEq Sodium acetate [] mEq Potassium phosphate [] mMol Potassium chloride [] mEq Potassium acetate [] mEq Magnesium sulfate [] mEq Calcium gluconate [] mEq Multivitamins 10 mL Trace Elements 1 mL Additional additives: Total volume 2200 mL to be infused over 24 hrs will provide 1060 kcal/day Final osmolarity 648 mOsm/L Labs, as indicated, will be ordered per protocol Pharmacy will continue to follow and adjust parenteral nutrition orders on a daily basis. Thank you for allowing us to participate in the care of this patient.
[2018-04-08] MEDS ORDERED: CUSTOM PERIPHERAL PN IV SCH (16:00)
--- NOTE | 2018-04-08 16:35 | Hematology/Oncology Prog Note ---
Date of Service April 08, 2018 Assessment & Plan (1) Right sided weakness: * Patient with a left sided pontine lesion, 2 cm, with vasogenic edema * Patient had repeat head CT today, small area of hemorrhage * Neurology has been consulted- recommend start Keppra 500 mg BID since he had some seizure like activity of RLE and stay on dexamethasone 6mg q6h * Monitor neurologic progress with the start of XRT, hopeful patient can regain right sided use and esophageal function, patient started on PPN * Radiation Oncology has also been consulted, patient started palliative XRT today * Neurosurg unable to intervene with the met location * Discussed with patient/son that systemic therapy is not a treatment for intracranial mets (2) Metastatic squamous cell carcinoma: * Diagnosed with SCC of scalp with resection in Jan 2017 and underwent radiation by Dr. yMrick in April 2017. Developed pleuritic chest pain in Jan 2018 and metastatic SCC was found on RLL, which was resected by Dr. Carroll on Mar 17 2018 * Dr. Reeder met this patient for the 1st time on 03/29/2018 and recommended foundation 1 testing to include PD L1 diff decide about systemic treatment- this is pending * The patient had a PET-CT in March 2018 that showed the right lower lobe metastasis which has since been resected but otherwise no other metastatic disease was noted at that time * CT abd/pelvis from today does not show abd/pelvis mets Dr. Washington is the covering medical oncologist- discussed patient with her at time of rounding. On 04/08/[address] Cano that agree with palliative RT and I discussed with Michelle Farr PA-C. continue IV dexamethasone. continue IV dexamethasone will defer timing of taper of steroids to radiation oncology due to vasogenic edema and patient start RT that day. Subjective Patient was rounded on at beside. His son and a few family members/friends at bedside. He started palliative XRT today, total of 5 days planned. He is unable to life right leg, 2 days prior was able to; also cannot lift right UE and was able to a few days prior. His remains dysarthric. He is on PPN. He had involuntary movement of RLE and so now he is on Keppra. No other stated issues. Physical Exam 2 Vital Signs (Past 24 Hours): Last Vital Signs Temp 36 C L 04/08/18 12:13 Pulse 65 04/08/18 15:06 Resp 18 04/08/18 15:06 BP 153/81 H 04/08/18 15:06 Pulse Ox 95 04/08/18 15:06 Constitutional: well nourished and + frail appearing Respiratory: normal respiratory effort, lungs clear to auscultation Cardiovascular: Rate/Rhythm: regular rate and regular rhythm Neurologic: awake Speech / Cognition: + abnormal speech Able to move bilateral feet Results & Data Diagnostic Findings Head CT from 04/08/18: Ventricles and sulci normal in size. No hemorrhage. 2.3 cm lesion in the left aspect of the ventral rachael is now peripherally hyperdense, which represents a change from prior. Mild hypodensity in the left cerebral peduncle. Periventricular and subcortical white matter hypoattenuation, nonspecific but likely indicative of chronic small vessel ischemic change. No acute territorial infarct. No mass effect or midline shift. No extra-axial fluid collection. Paranasal sinuses and mastoid air cells clear. Calvarium intact. Bilateral akutan lenses are absent. CT abd/pelvis from 04/08/18: Lung bases: Minimal dependent changes likely atelectasis. The right lower lobe pulmonary lesion is not included within the [id number]. Several solid pulmonary nodules evident at the right lung base in the right lower lobe (series 3 image 21). The largest measures 5 mm. Normal heart size. No pericardial or pleural effusion. Liver: Normal morphology. Well-defined hypodense lesion in the lateral left hepatic lobe as on prior exam compatible with hepatic cysts. Additional subcentimeter well-defined hypodensity in the left hepatic lobe likely also cyst. These were present in 2015. Patent hepatic vasculature. Biliary: Mild biliary ductal prominence likely a reservoir effect in the post cholecystectomy state. Gallbladder surgically absent. Pancreas: Moderate parenchymal atrophy. Spleen: Normal. Adrenal glands: Normal. Kidneys and ureters: Parapelvic and parenchymal cysts evident bilaterally. No nephrolithiasis or hydronephrosis. Bladder: Normal. Pelvic organs: Prostate enlargement likely secondary to benign prostatic hyperplasia. Bowel: Large diverticulum at the distal sigmoid colon. Pancolonic diverticulosis. Residual barium noted in the transverse and ascending colon. Apparent wall thickening of the hepatic flexure and proximal transverse colon likely due to underdistention. The appendix is not visualized. No bowel obstruction. Peritoneal cavity: No free fluid or intraperitoneal gas. Lymph nodes: No enlarged lymph nodes in the abdomen or pelvis. Vasculature: Atherosclerosis of the normal caliber abdominal aorta. IVC patent. Abdominal wall: Small fat-containing umbilical hernia. Fat-containing bilateral inguinal hernias. Postsurgical changes of prior right inguinal hernia repair. Musculoskeletal: Osteopenia. Moderate compression fracture of L3. This is unchanged since 2015. No retropulsion of the posterior cortex. Degenerative changes of the spine. No destructive osseous lesion.
--- NOTE | 2018-04-08 19:02 | Hospitalist Progress Note ---
Date of Service April 08, 2018 Assessment & Plan (1) Hemiparesis of right dominant side: Patient started with palliative radiation treatment, CT head noncontrast done for change/worsening of right hemiparesis: Shows presence of hemorrhage in left rachael mass, with no evidence of mass-effect Overall prognosis remains very poor Discussed the case with [facility] neurology Dr.Andrew Delong MRI images reviewed by Given the position of pontine lesion, marked vasogenic edema, advanced age High risk for surgical resection, with poor outcome Recommend continue with palliative radiation treatment presented with rt sided weakness /hemiparesis due to metastatic brain lesion involving left side of rachael MRI of brain : . Intra-axial 2.2 cm mass in the left rachael most suspicious for a metastatic lesion. Correlate with the history of malignancy. Surrounding abnormal signal intensity may represent reactive vasogenic edema or, less likely, regional invasion. Differential considerations include primary glioma or lymphoma. 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 Christiansen: Malignant spindle cell neoplasm, positive margin Status post wide excision with skin grafting by Dr. 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 Myrick at [facility] Status post adjuvant radiation treatment completed on April 2017 Developed pleuritic chest pain in Jan 2018 was seen at [facility] CT chest with contrast: Right upper lobe lung nodule PET scan on 03/09/18 and CTA of chest : FDG avid 3.2 into 2.7 cm paramediastinal right lower lobe soft tissue mass s/p resection by Dr. Carroll on Mar 17 2018. 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 pt been followed at dermatology for recurrent scalp lesion pn 04/04/18 had excision. 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 measuring about 3.5 x 2.5x2.5 cm 1 out of 5 lymph nodes positive for metastatic disease Overall considered to be metastatic disease from primary scalp neoplasm Status post resection of left scalp lesion on 04/04/2018 by dermatology Pathology still pending Presents with right hemiparesis with MRI of brain noted for metastatic mass on left rachael area Hematology oncology consult appreciated At present patient functional status is very poor to consider systemic chemo or immunotherapy Patient started with palliative radiation treatment Overall prognosis for recurrent metastatic squamous cell carcinoma remains poor (3) Dysphagia: First noted before EGD March, but has progressed -EGD (03/07/18) with normal results and pathology. Recommended starting prilosac 20mg daily x 8 weeks -Has equal difficulty with solid and liquid foods -Son notes more frequent aspirations at home - appreciate input from speech pathology severe esophageal dysmotility noted with aspiration of minute amount of barium also no relaxation of lower esophageal sphincture noted result of VFSS explained to Patient and son pt is unable to swallow saliva , and continued to suction out remaining portion of barium Discussed role of feeding tube/PEG tube Initially patient wanted to hold off feeding tube placement for now, Months to see any improvement of swallowing after radiation treatment Patient will be started on PPN Last 24-48 hours, patient is showing evidence of worsening neurological decline Chance of improvement of dysphagia remains very poor Willing for a GI consult for PEG tube evaluation GI consult requested (4) Esophageal dysphagia: due to metastatic brain lesion on left rachael with associated severe vasogenic edema -possible causing mass effect to cranial nerve severe bedside dysphagia noted , unable to manage oral secretions VFSS -severe esophageal dysmotility with no evidence of peristalsis /absence of lower esophageal sphincter -leading to regurgitation and aspiration of barium ordered for NPO , radiation oncology consulted for palliative raditation tx pt aware of the poor prognosis GI consult requested for PEG tube placement (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: (6) Vasogenic cerebral edema: due to metastatic brain lesion 2.1 cm on left rachael -evident in MRI of brain started on IV decadron radiation oncology consulted Getting radiation simulation today, possible start with palliative radiation on Wednesday CODE STATUS : d/ w patient , aware of the poor prognosis has living will does not want heroic measures /CPR /mechanical ventilation DNR/DNI role of palliative care /hospice discussed with both pt and son With progressive decline with neurological and functional status Willing to consider palliative care, after completion of palliative radiation treatment Referral made to [facility] per patient's request Appreciate input from case management Subjective Patient found to be more dysarthric, Worsening of weakness on right upper and lower extremity CT head without contrast: Shows Evidence of interval internal/peripheral hemorrhage within the known left pontine lesion No evidence of mass-effect or midline shift CT head findings discussed with Dr. Mercado Patient will be started on palliative radiation treatment today Physical Exam 2 Vital Signs (Past 24 Hours): Last Vital Signs Temp 36 C L 04/08/18 12:13 Pulse 65 04/08/18 15:06 Resp 18 04/08/18 15:06 BP 153/81 H 04/08/18 15:06 Pulse Ox 95 04/08/18 15:06 Constitutional: WD/WN, vitals as above no acute distress Neck: trachea midline, no thyromegaly Respiratory: normal respiratory effort; no respiratory distress and no cough Cardiovascular: RRR, no murmur, no edema Rate/Rhythm: regular rate and regular rhythm Gastrointestinal (Abdomen): Inspection/Auscultation: normal bowel sounds; no abdominal edema Percussion/Palpation: abdomen soft; abdomen nontender Neurologic: Speech / Cognition: + expressive aphasia Motor/Sensory: + tremor (Right lower extremity) and + abnormal movement (Myoclonic jerk on right lower extremity) Lethargic sedated today Psychiatric: Appears to be more sedated _ (1) Dysphagia Dysphagia type: esophageal phase Qualified Code(s): R13.10 - Dysphagia, unspecified (2) Hemiparesis of right dominant side Cerebrovascular disease type: Hemiparesis etiology: non-cerebrovascular etiology Qualified Code(s): G81.91 - Hemiplegia, unspecified affecting right dominant side (3) Amputation of finger of left hand Encounter type: sequela Qualified Code(s): S68.119S - Complete traumatic metacarpophalangeal amputation of unspecified finger, sequela
[2018-04-09] MEDS: DEXAMETHASONE SOD PHOSPHATE 6 MG in SYRINGE 0 ML IV SCH ×5 (00:12→23:42)
[2018-04-09 07:33] LABS: BUN Creatinine Ratio 40.3 (10-20); Creatinine Clr Calc Pharmacy 53.2 ml/min; Est GFR (African American) 87.7; Est GFR (Non-African American) 75.7; Phosphorus 3.3 mg/dl (2.5-4.9)
--- NOTE | 2018-04-09 09:06 | Hospitalist Progress Note ---
Date of Service April 09, 2018 Assessment & Plan (1) Hemiparesis of right dominant side: 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 presented with Right hemiparesis Received first cessation of palliative radiation treatment yesterday 04/08/2018 Patient is having waxing/neurological symptoms, CT head noncontrast done for on 04/08/2018 for change/worsening of right hemiparesis: Shows presence of hemorrhage in left rachael mass, with no evidence of mass-effect Patient will continue with palliative radiation treatment Overall prognosis remains very poor Discussed the case with [facility] neurology Dr.Andrew Delong MRI images reviewed by Given the position of pontine lesion, marked vasogenic edema, advanced age High risk for surgical resection, with poor outcome Recommend continue with palliative radiation treatment pt presented with rt sided weakness /hemiparesis due to metastatic brain lesion involving left side of rachael MRI of brain : . Intra-axial 2.2 cm mass in the left rachael most suspicious for a metastatic lesion. Correlate with the history of malignancy. Surrounding abnormal signal intensity may represent reactive vasogenic edema or, less likely, regional invasion. Differential considerations include primary glioma or lymphoma. hx of metastatic recurrent Sq cell Ca Continue IV dexamethasone 6 mg every 6 hours Appreciate input from neurology EEG shows Abnormal EEG due to mild background slowing suggestive of mild nonspecific encephalopathy there is no evidence of epileptogenic activity Episodes of right lower extremity muscle contraction-possible flexor muscle spasm, which is common in brain/spinal cord injury Ideally treated with Flexeril p.o. Given patient's severe dysphasia p.o. 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 Christiansen: Malignant spindle cell neoplasm, positive margin Status post wide excision with skin grafting by Dr. 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 Myrick at [facility] Status post adjuvant radiation treatment completed on April 2017 Developed pleuritic chest pain in Jan 2018 was seen at [facility] CT chest with contrast: Right upper lobe lung nodule PET scan on 03/09/18 and CTA of chest : FDG avid 3.2 into 2.7 cm paramediastinal right lower lobe soft tissue mass s/p resection by Dr. Carroll on Mar 17 2018. 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 pt been followed at dermatology for recurrent scalp lesion pn 04/04/18 had excision. Pathology pending Hematology oncology consult appreciated At present patient functional status is very poor to consider systemic chemo or immunotherapy Patient started with palliative radiation treatment d/w neurosurgery at [facility], given location of tumor to high risk for surgical resection, outcome will not be favorable given patient's advanced age, recurrent meds of squamous cell carcinoma at different sites (3) Dysphagia: First noted before EGD March, but has progressed -EGD (03/07/18) with normal results and pathology. Recommended starting prilosac 20mg daily x 8 weeks Presents with left pontine lesion acid with severe vasogenic edema Patient was unable to swallow her own secretions, requiring constant sections - appreciate input from speech pathology - VFSS done severe esophageal dysmotility noted with aspiration of barium also no relaxation of lower esophageal sphincture noted result of VFSS explained to Patient and son pt is unable to swallow saliva , and continued to suction out remaining portion of barium Discussed role of feeding tube/PEG tube Initially patient wanted to hold off feeding tube placement for now, Wanted to see any improvement of swallowing after radiation treatment Patient PPN started on PPN Last 24-48 hours, patient is showing evidence of worsening neurological decline Chance of improvement of dysphagia remains very poor Is only temporary in nature, mediated feeding tube for long-term nutrition Patient is 1 willing for a GI consult for PEG tube evaluation GI consult requested (4) Esophageal dysphagia: due to metastatic brain lesion on left rachael with associated severe vasogenic edema -possible causing mass effect to cranial nerve severe bedside dysphagia noted , unable to manage oral secretions VFSS -severe esophageal dysmotility with no evidence of peristalsis /absence of lower esophageal sphincter -leading to regurgitation and aspiration of barium ordered for NPO , radiation oncology consulted for palliative raditation tx pt aware of the poor prognosis GI consult requested for PEG tube placement (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: At age 17 (6) Vasogenic cerebral edema: due to metastatic brain lesion 2.1 cm on left rachael -evident in MRI of brain started on IV decadron radiation oncology consulted Patient will continue with palliative radiation treatment CODE STATUS : d/ w patient , aware of the poor prognosis has living will does not want heroic measures /CPR /mechanical ventilation DNR/DNI role of palliative care /hospice discussed with both pt and son With progressive decline with neurological and functional status Willing to consider palliative care, after completion of palliative radiation treatment Referral made to [facility] per patient's request Appreciate input from case management Subjective Patient found to be in better spirits this morning Still dysarthric, but speech is fairly understandable He feels his right arm has more strength now, able to make his fist/ lift it off the bed Still having episodes of spasm on right lower extremity, Denies of any headache No blurred vision Continued on PPN Still having difficulty swallowing saliva /requiring frequent suction of oral cavity-done by himself Physical Exam 2 Vital Signs (Past 24 Hours): Last Vital Signs Temp 36.3 C L 04/09/18 07:59 Pulse 56 L 04/09/18 07:59 Resp 13 04/09/18 07:59 BP 158/80 H 04/09/18 07:59 Pulse Ox 95 04/09/18 07:59 Constitutional: + physical limitations; no acute distress (Awake and alert, normal mental and cognition,) Eyes: + anicteric sclerae ENMT: Status post scalp lesion biopsy/surgery on left temporal area, stitches present, no drainage or swelling noted Neck: trachea midline, no thyromegaly Respiratory: normal respiratory effort; no respiratory distress and no cough Cardiovascular: RRR, no murmur, no edema Rate/Rhythm: regular rate and regular rhythm Gastrointestinal (Abdomen): Inspection/Auscultation: normal bowel sounds; no abdominal edema Percussion/Palpation: abdomen soft; abdomen nontender Neurologic: awake Speech / Cognition: + expressive aphasia Motor/Sensory : + tremor (Right lower extremity) and + abnormal movement (Myoclonic jerk on right lower extremity) Right [id number] to lift right arm, right leg against gravity Psychiatric: A+Ox3, euthymic affect _ (1) Hemiparesis of right dominant side Hemiparesis etiology: non-cerebrovascular etiology Cerebrovascular disease type: Qualified Code(s): G81.91 - Hemiplegia, unspecified affecting right dominant side (2) Dysphagia Dysphagia type: esophageal phase Qualified Code(s): R13.10 - Dysphagia, unspecified (3) Amputation of finger of left hand Encounter type: sequela Qualified Code(s): S68.119S - Complete traumatic metacarpophalangeal amputation of unspecified finger, sequela
[2018-04-09] MEDS: PANTOprazole 40 MG in SYRINGE 0 ML IV SCH (09:19)
[2018-04-09] MEDS: NYSTATIN SUSP 500,000 U/5 ML UDC PO SCH ×4 (09:19→21:19)
[2018-04-09] MEDS ORDERED: LORazepam 0.25 MG/0.5 ML VIAL IV PRN (10:55)
[2018-04-09] MEDS ORDERED: BISACODYL 10 MG SUPP PR PRN (12:06)
--- NOTE | 2018-04-09 12:34 | Progress Note ---
DATE: 04/09/2018 SUBJECTIVE: I am seeing Mr. Lujan in followup of a brain mass with flexor spasms of the right lower extremity. Unfortunately, at the moment, he is n.p.o., so any plans of potentially using some gabapentin are not able to be moved forward on. He does indicate to me that overnight on his own, he ate some chocolate pudding and this went down well. He would like to be able to take something by mouth. Mostly, my exam consisted of talking to the patient for about 15 minutes and observing. He has dysarthria, flattened right nasolabial fold. I did not witness any flexor spasms of the right lower extremity. IMPRESSION: Brainstem lesion. Given the patient's history, likely metastatic. My understanding is that neurosurgery Hilger reviewed the images and felt this was tumor. It is certainly not in the location that would be biopsiable. I would continue the steroids at some point upon stabilization likely a taper, although we can defer to the radiation oncologist regarding that. If he can not take by mouth, I would give him low-dose Ativan for the flexor spasm,probably twice a day, monitoring for sedation. If able to take by mouth . I would start him on Gabapentin, probably giving a dose now and then starting 100 mg at night as he has most of his flexor spasms at night, I think that is least likely to sedate him than Ativan. I answered any questions that the patient had. We will continue to follow with you. MTDD
[2018-04-09] MEDS: ACETAMINOPHEN 1000 MG/100 ML IV IV PRN (13:50)
[2018-04-09] MEDS ORDERED: CUSTOM PERIPHERAL PN IV SCH (16:00)
[2018-04-09] MEDS: LORazepam 0.5 MG/1 ML VIAL IV SCH (21:22)
[2018-04-10] MEDS: DEXAMETHASONE SOD PHOSPHATE 6 MG in SYRINGE 0 ML IV SCH ×3 (05:51→18:11)
[2018-04-10 07:23] LABS: BUN Creatinine Ratio 39.9 (10-20); Calcium 8.4 mg/dl (8.5-10.1); Creatinine Clr Calc Pharmacy 53.2 ml/min; Est GFR (African American) 85.5; Est GFR (Non-African American) 73.7; Magnesium 1.9 mg/dl (1.8-2.4); Potassium 3.8 mmol/L (3.5-5.1)
[2018-04-10] MEDS: NYSTATIN SUSP 500,000 U/5 ML UDC PO SCH ×4 (08:10→20:51)
[2018-04-10] MEDS: PANTOprazole 40 MG in SYRINGE 0 ML IV SCH (08:10)
--- NOTE | 2018-04-10 09:54 | Progress Note ---
DATE: 04/10/2018 Mr. Lujan was seen today. He now has questionable nodules in his chest with metastatic disease. Sarcomatoid carcinomas are extremely "bad actors" and this appears to be no different. His neurologic deficits with right hemiparesis and aphasia are worse than it was last week. He has not responded as well as I would like to the steroids. I had a long talk with the patient and his son at the bedside today. They are understanding that this is a difficult situation and that we do not have a good therapy for this. We will continue to keep him as comfortable as possible. MTDJohn
--- NOTE | 2018-04-10 12:25 | Progress Note ---
DATE: 04/10/2018 SUBJECTIVE: I am seeing the patient in followup of what is thought to be a metastatic tumor of the rachael. He has had flexor spasms in the right lower extremity. Keppra has been discontinued. He is getting Ativan twice a day intravenously. At this point, he is not been able to take by mouth. There is some question about whether or not he may have dreams of that he had taken a pudding by mouth. He has not yet been re-evaluated by speech. OBJECTIVE: NEUROLOGIC: He is dysarthric, but alert, awake, has right facial weakness, minimal shoulder shrug, minimal movement of the right lower extremity with increased tone. No flexor spasms are noted. IMPRESSION AND PLAN: 1. Pontine mass with symptomatic mass effect with a right hemiparesis, dysarthria, dysphagia. Continue IV Decadron as dictated by Radiation-Oncology and Oncology. 2. Provided the patient cannot take by mouth, continue the low dose Ativan which seems to be effective for his flexor spasm. 3. Speech Therapy should see him again to see if he is able to take anything by mouth. MTDD
--- NOTE | 2018-04-10 14:29 | Hematology/Oncology Prog Note ---
Date of Service April 10, 2018 Imp: 82 year old male with metastatic sarcomatoid SCC with neurologic symptoms of dysphagia, dysarthria and right hemiparesis, left rachael lesion concerning for metastasis with interval internal peripheral hemorrhage within the lesion ECOG PS: 4 currently. I discussed with the patient and he would like to continue RT at this time. also can continue with PT as tolerated. continue dexamethasone for vasogenic edema. Will defer timing and taper to rad onc since he is undergoing RT and risk for worsening vasogenic edema. recommend palliative care input regarding goals of care and further support for patient when patient is ready given overall poor fdc prognosis/outcome. and poor performance status. support provided. S: Patient seen and examined. States his son went to get his dog and son is making some arrangements for taking care of his dog He has dysarthria and dysphagia. He is using suction on and off States that he does not notice any headache now, but states that he does not usually notice any when others are present with him or visiting - said he would say that "headache has been fair" He states spasms that he was having on RLE have improved and not noticing it now has right hemiparesis He is aware of ct abd.pel showing 3 solid nodules at right lung base 5mm, these are below resolution of PET Patient states he understands that the prognosis is poor overall but he would like to continue the RT at this time Physical Exam 2 Vital Signs (Past 24 Hours): Last Vital Signs Temp 36.3 C L 04/10/18 07:08 Pulse 65 04/10/18 07:08 Resp 16 04/10/18 07:08 BP 117/68 04/10/18 07:08 Pulse Ox 95 04/10/18 07:08 Gen:awake and alert, frail,chronically ill appearing, no acute distress Lungs: Clear anteriorly CV: S1 S2 RRR abd: soft NT/ND Ext: no edema Neuro: alert oriented x3, +dysarthria + Right hemiparesis, unable to hand grasp and no movement noted of the right upper or lower extremity
[2018-04-10] MEDS ORDERED: CUSTOM PERIPHERAL PN IV SCH (16:00)
--- NOTE | 2018-04-10 17:32 | Hospitalist Progress Note ---
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 presented with Right hemiparesis Received first cessation of palliative radiation treatment yesterday 04/08/2018 Patient is having waxing/neurological symptoms, CT head noncontrast done for on 04/08/2018 for change/worsening of right hemiparesis: Shows presence of hemorrhage in left rachael mass, with no evidence of mass-effect Patient will continue with palliative radiation treatment Overall prognosis remains very poor Discussed the case with [facility] neurology Dr.Andrew Delong MRI images reviewed by Given the position of pontine lesion, marked vasogenic edema, advanced age High risk for surgical resection, with poor outcome Recommend continue with palliative radiation treatment pt presented with rt sided weakness /hemiparesis due to metastatic brain lesion involving left side of rachael MRI of brain : . Intra-axial 2.2 cm mass in the left rachael most suspicious for a metastatic lesion. Correlate with the history of malignancy. Surrounding abnormal signal intensity may represent reactive vasogenic edema or, less likely, regional invasion. Differential considerations include primary glioma or lymphoma. hx of metastatic recurrent Sq cell Ca Continue IV dexamethasone 6 mg every 6 hours Appreciate input from neurology EEG shows Abnormal EEG due to mild background slowing suggestive of mild nonspecific encephalopathy there is no evidence of epileptogenic activity IV keppra D/jairo Episodes of right lower extremity muscle contraction-possible flexor muscle spasm, which is common in brain/spinal cord injury D/w Neurology started in low dose IV Ativan pt reports improvement of symptom will cont Present on Admission?: Yes (2) Metastatic squamous cell carcinoma: presented with left Pontine /brain mets -leading to right hemiparesis , vasogenic edema , leading to severe dysphagia /dysarthria 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 Christiansen: Malignant spindle cell neoplasm, positive margin Status post wide excision with skin grafting by Dr. Shearer on [facility] 02/15/2017 Final pathology: Poorly differentiated sarcomatoid squamous cell carcinoma with perineural invasion, negative margin Was seen by radiation oncology Dr. Myrick at [facility] Status post adjuvant radiation treatment completed on April 2017 Developed pleuritic chest pain in Jan 2018 was seen at [facility] CT chest with contrast: Right upper lobe lung nodule PET scan on 03/09/18 and CTA of chest : FDG avid 3.2 into 2.7 cm paramediastinal right lower lobe soft tissue mass s/p resection by Dr. Carroll on Mar 17 2018. 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 pt been followed at dermatology for recurrent scalp lesion pn 04/04/18 had excision. Pathology pending Hematology oncology consult appreciated At present patient functional status is very poor to consider systemic chemo or immunotherapy Patient started with palliative radiation treatment d/w neurosurgery at [facility], given location of tumor to high risk for surgical resection, outcome will not be favorable given patient's advanced age, recurrent meds of squamous cell carcinoma at different sites (3) Dysphagia: First noted before EGD March, but has progressed -EGD (03/07/18) with normal results and pathology. Recommended starting prilosac 20mg daily x 8 weeks Presents with left pontine lesion acid with severe vasogenic edema Patient was unable to swallow her own secretions, requiring constant sections - appreciate input from speech pathology - VFSS done severe esophageal dysmotility noted with aspiration of barium also no relaxation of lower esophageal sphincture noted result of VFSS explained to Patient and son pt is unable to swallow saliva , and continued to suction out remaining portion of barium Discussed role of feeding tube/PEG tube Initially patient wanted to hold off feeding tube placement for now, Wanted to see any improvement of swallowing after radiation treatment Patient PPN started on PPN Last 24-48 hours, patient is showing evidence of worsening neurological decline Chance of improvement of dysphagia remains very poor Is only temporary in nature, mediated feeding tube for long-term nutrition GI consult requested for PEG tube (4) Esophageal dysphagia: due to metastatic brain lesion on left rachael with associated severe vasogenic edema -possible causing mass effect to cranial nerve severe bedside dysphagia noted , unable to manage oral secretions VFSS -severe esophageal dysmotility with no evidence of peristalsis /absence of lower esophageal sphincter -leading to regurgitation and aspiration of barium ordered for NPO , radiation oncology consulted for palliative raditation tx pt aware of the poor prognosis GI consult requested for PEG tube placement (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: At age 17 (6) Vasogenic cerebral edema: due to metastatic brain lesion 2.1 cm on left rachael -evident in MRI of brain started on IV decadron radiation oncology consulted Patient will continue with palliative radiation treatment CODE STATUS : d/ w patient , aware of the poor prognosis has living will does not want heroic measures /CPR /mechanical ventilation DNR/DNI role of palliative care /hospice discussed with both pt and son With progressive decline with neurological and functional status Willing to discuss with Palliative care Palliative care consulted Referral made to [facility] per patient's request Appreciate input from case management Subjective more alert /conversing ( speech dysartric ) rt lower ext spasm has resolved continues to have thick oral secretions requiring frequent suction Physical Exam 2 Vital Signs (Past 24 Hours): Last Vital Signs Temp 36.4 C L 04/10/18 15:05 Pulse 71 04/10/18 15:05 Resp 18 04/10/18 15:05 BP 132/75 04/10/18 15:05 Pulse Ox 92 04/10/18 15:05 Constitutional: WD/WN, vitals as above + physical limitations; no acute distress (Awake and alert, normal mental and cognition,) Eyes: + anicteric sclerae Respiratory: normal respiratory effort; no respiratory distress and no cough Cardiovascular: Rate/Rhythm: regular rate and regular rhythm Gastrointestinal (Abdomen): Inspection/Auscultation: normal bowel sounds; no abdominal edema Percussion/Palpation: abdomen soft; abdomen nontender Neurologic: awake Speech / Cognition: + expressive aphasia (rt hemiparesis ) Psychiatric: A+Ox3, euthymic affect _ (1) Dysphagia Dysphagia type: esophageal phase Qualified Code(s): R13.10 - Dysphagia, unspecified (2) Hemiparesis of right dominant side Cerebrovascular disease type: Hemiparesis etiology: non-cerebrovascular etiology Qualified Code(s): G81.91 - Hemiplegia, unspecified affecting right dominant side (3) Amputation of finger of left hand Encounter type: sequela Qualified Code(s): S68.119S - Complete traumatic metacarpophalangeal amputation of unspecified finger, sequela
[2018-04-10] MEDS: LORazepam 0.5 MG/1 ML VIAL IV SCH (20:53)
[2018-04-11] MEDS: DEXAMETHASONE SOD PHOSPHATE 6 MG in SYRINGE 0 ML IV SCH ×5 (00:06→23:40)
[2018-04-11] MEDS: NYSTATIN SUSP 500,000 U/5 ML UDC PO SCH ×4 (07:42→20:36)
[2018-04-11] MEDS: PANTOprazole 40 MG in SYRINGE 0 ML IV SCH (07:45)
[2018-04-11 10:33] LABS: BUN Creatinine Ratio 42.5 (10-20); Calcium 8.3 mg/dl (8.5-10.1); Creatinine Clr Calc Pharmacy 48.1 ml/min; Est GFR (African American) 75.7; Est GFR (Non-African American) 65.3; Magnesium 2.1 mg/dl (1.8-2.4); Phosphorus 3.3 mg/dl (2.5-4.9)
[2018-04-11] MEDS: ATROPINE SULFATE 1% OP SOLN 5 ML BTL SL PRN ×2 (11:36→14:00)
--- NOTE | 2018-04-11 13:09 | Gastrointestinal Consultation ---
Date of Consultation April 11, 2018 Assessment & Plan (1) SCC (squamous cell carcinoma): Present on Admission?: Yes (2) Hemiparesis of right dominant side: Present on Admission?: Yes (3) Dysphagia: Pt is a 82 y/o male w hx of SCC scalp w mets to lung s/p resection and XRT , who presented w R sided hemipheresis, head/brain imaging showed now 2.1cm enhancing pontine lesion likely metastatic neoplasm. He has a hard time handling oral secretions and failed his swallow study. He is currently on PPN. GI asked to evaluate him for possible PEG placement. Pt aware that PEG is considered as alternate source of feeding. PEG placement doesn't reduce his risk of aspiration nor meant to help prolong his life. Pt made it clear to us that he would not like any type of feeding tube to be placed. He listed it out in his advanced directive as well. Son (Gustavo) is in pt's room and aware of pt's decision. Agree with Palliative Care consult. Please call us if any new question /concerns arise. Present on Admission?: Yes Supervising Physician Co-Signing Physician Notes I saw and evaluated the patient. Feeding tube is requested by the internal medicine service due to inability to eat. The patient does have a history of advanced malignancy is under radiation therapy for malignant disease to his rachael. Physical examination Ill-appearing male, thin appearing Impression: Patient with a history of metastatic cancer having difficulty with feeding. The patient and his family are very clear about their wishes to not have a feeding tube placed at the present time. Please call us with any questions or concerns. GI to sign off for the present time History of Present Illness Reason for Consultation: PEG evaluation Requesting Physician: Dr. Franchesca Cano Attending Physician: Dr. Ania Escalante History of Present Illness Pt is a 82 y/o male currently seen for possible PEG placement for dysphagia. Hx of SCC of scalp s/p resection January 2017, and radiation therapy. Found to have mestastasis to lungs on RLL s/p resection by Dr. Carroll Mar 2018. He is admitted w worsening R sided weakness and parasthesia of R hand. CT head and MRI brain finding of 2.1cm pontine lesion likely metastatic process. Pt chose to still undergo XRT, no chemotherapy He is currently having trouble with handling oral secretions, having to suction himself. He failed his barium swallow study showing aspiration w nectar thick liquids and esophageal dysmotility. Speech Therapy recommend NPO status and for him to be evaluation for PEG tube. He is currently on PPN. Abd surgical hx: cholecystectomy, partial bowel resection for diverticulitis. Allergies Allergy/AdvReac Type Severity Reaction Status Date / Time morphine AdvReac Unknown SLOWS HR Verified 03/19/18 10:34 Home Medications Home Medications Medication Instructions Recorded Confirmed Type diazepam [Valium] 5 mg PO HS PRN 03/15/18 04/05/18 History ibuprofen [Advil] 200 mg PO QID PRN 03/15/18 04/05/18 History omeprazole 20 mg PO QAM 03/15/18 04/05/18 History triamcinolone acetonide 1 applic TOPICAL BID 03/15/18 04/05/18 History acetaminophen [Tylenol Extra 500 - 1,000 mg PO Q6H PRN 04/05/18 04/05/18 History Strength] Patient History Medical History Metastatic squamous cell carcinoma (Chronic) s/p resection of scalp in Jan 2017, s/p resection of mets to RLL by Dr. 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 Surgical History History of herniorrhaphy (Resolved) right inguinal hernia repair History of cholecystectomy (Resolved) History of bowel resection (Resolved) HX -- IBS and needed due to unable to pass colonoscope History of esophagogastroduodenoscopy (EGD) (Resolved) Family History Father Cancer lung cancer Lung disease worked at [employer] Mother Heart disease Mother HTN (hypertension) Social History marital status: / Current Living Situation: Alone Other Information That Helps Us Care for You: No Feels Safe at Home: Yes Safety Concerns: Feels Safe At This Time Smoking Status: Current every day smoker Tobacco Type: pipe Do You Dip or Chew Tobacco: No Second Hand Exposure: No Tobacco Cessation Education Requested by Patient: No Hx Alcohol Use: Yes Alcohol type: beer Alcohol Intake Frequency: holidays/ special occasions only Hx Substance Use: No Beliefs That Will Affect Care: None Preferred Language: Sami Communication Ability: Effective Roof Bolter Helper Required: No Review of Systems Ear, Nose, Mouth, Throat: as per Subjective / HPI Respiratory: no dyspnea Gastrointestinal: as per Subjective / HPI; no nausea and no vomiting Musculoskeletal: as per Subjective / HPI Neurologic: as per Subjective / HPI Physical Exam 2 Vital Signs (Past 24 Hours): Last Vital Signs Temp 36.4 C L 04/11/18 11:53 Pulse 60 04/11/18 11:53 Resp 20 04/11/18 11:53 BP 136/74 04/11/18 11:53 Pulse Ox 92 04/11/18 11:53 Physical Exam: Laying in bed, appears fatigued, just underwent XRT session Constitutional: + ill appearing, + frail appearing, cooperative and + lethargic Respiratory: no respiratory distress and does not use accessory muscles Neurologic: Speech a bit garbled but understandable. Results & Data Laboratory Results Laboratory Results - last 48 hr 04/10/18 04/11/18 06:00 09:54 Sodium 134 L 135 L Potassium 3.8 4.0 Chloride 100 99 Carbon Dioxide 27 30 Anion Gap 7.0 6.0 BUN 38 H 45 H Creatinine 0.95 1.05 Est Cr Clr Drug Dosing 53.2 48.1 Est GFR ( Amer) 85.5 75.7 Est GFR (Non-Af Amer) 73.7 65.3 BUN/Creatinine Ratio 39.9 H 42.5 H Glucose 150 H 152 H Calcium 8.4 L 8.3 L Phosphorus 3.0 3.3 Magnesium 1.9 2.1 Diagnostic Findings MRI brain IMPRESSION: 1. Intra-axial 2.2 cm mass in the left rachael most suspicious for a metastatic lesion. Correlate with the history of malignancy. Surrounding abnormal signal intensity may represent reactive vasogenic edema or, less likely, regional invasion. Differential considerations include primary glioma or lymphoma. 2. Extensive periventricular and subcortical white matter signal abnormalities , most likely chronic small vessel ischemic change. However, foci of abnormal signal within the temporal lobe white matter would not be characteristic of this entity. Given the absence of additional enhancing lesions, it is doubtful that these temporal lobe abnormalities relate to the intra-axial mass. Correlate for history of demyelinating disease CT head: IMPRESSION: 1. Evidence of interval internal/peripheral hemorrhage within the known left pontine lesion. No new lesion allowing for noncontrast technique. 2. Chronic small vessel ischemic change. _ (1) Dysphagia Dysphagia type: esophageal phase Qualified Code(s): R13.10 - Dysphagia, unspecified (2) Hemiparesis of right dominant side Cerebrovascular disease type: Hemiparesis etiology: non-cerebrovascular etiology Qualified Code(s): G81.91 - Hemiplegia, unspecified affecting right dominant side
--- NOTE | 2018-04-11 13:49 | Neurology Progress Note ---
Date of Service April 11, 2018 Assessment & Plan (1) Metastatic squamous cell carcinoma: 1. metastatic lesion rachael - palliative treatment today-no surgical intervention advised due to location 2. ativan is helping with felxor spasm. which son states is helping with his sleep also 3. decadron 6 mg q 6 hours for edema- rad oncology for direct of dosing 4. palliative medicine - care direction 5. radiation oncology for palliative treatment x 5 doses 6. aspiration- unable to advance diet tube feeds currently 7. outcome poor overall no further neurology recommendations at this time. Will be available as needed Pt seen and examined. DESMOND Goff MD Supervising Physician Co-Signing Physician Notes I have seen and discussed above patient with Dr Shea Goff, neurology Subjective Oscar is a 82 year old male with PMH -metastatic squamous cell carcinoma who presents with progressive weakness of right side x 2 weeks and unable to ambulate and was having difficulty swallowing (over the last few months). He was diagnosed with SCC of scalp with resection in Jan 2017 and underwent radiation by Dr. Myrick in April 2017. Developed pleuritic chest pain in Jan 2018 and metastatic SCC was found on RLL, which was resected by Dr. Carroll on Mar 17 2018. His family is bedside and say at [place] time he was chopping wood but for the last 2 weeks he has had increased difficulty with ambulation. Today he states he is only 25% strength. He is currently receiving tube feeds and is suctioning his secretions. His son is in the room and states he is having palliative radiation every other day which the last one will be Wednesday. He then plans on transitioning to [place]. He denies CP, SOB, abdominal pain , N, V. +right sided weakness. Physical Exam 2 Vital Signs (Past 24 Hours): Last Vital Signs Temp 36.4 C L 04/11/18 11:53 Pulse 60 04/11/18 11:53 Resp 20 04/11/18 11:53 BP 136/74 04/11/18 11:53 Pulse Ox 92 04/11/18 11:53 Gen: alert, pale weak, thin lungs course breath sounds left hand - using for suctioning, finger amputations right arm and leg flaccid no myoclonic jerks currently Results & Data Laboratory Results Abnormal lab results 04/11/18 Range/Units 09:54 Sodium 135 L (136-145) mmol/L BUN 45 H (7-18) mg/dl BUN/Creatinine Ratio 42.5 H (10-20) Glucose 152 H (70-99) mg/dl Calcium 8.3 L (8.5-10.1) mg/dl Diagnostic Findings no new imaging
--- NOTE | 2018-04-11 14:55 | Pharmacy Report ---
PHA: Parenteral Nutrition Con - Date of Service April 11, 2018 - Scope Pharmacy was consulted on [2-8] to manage parenteral nutrition orders for this patient. - Subjective The patient is currently on day 5 of peripheral parenteral nutrition for poor nutrition, dysphagia, aspiration and currently on NPO status - Objective Height: 5 ft 6 in Weight: 64 kg Diet: NPO Intake & Output (24hrs):: Intake & Output 04/09/18 04/10/18 04/11/18 04/12/18 06:59 06:59 06:59 06:59 Intake Total 205 / 205 Output Total 1795 / 1795 1100 / 1100 1475 / 1475 Balance -1590 / -1590 -1100 / -1100 -1475 / -1475 Weight 62.5 kg 64.6 kg 64 kg Laboratory Data (Last 24 Hr):: 04/11/18 09:54 Sodium 135 L Potassium 4.0 Chloride 99 Carbon Dioxide 30 BUN 45 H Creatinine 1.05 Glucose 152 H Calcium 8.3 L Phosphorus 3.3 Magnesium 2.1 Nutrition Assessment:: Please refer to the Notes section of the EMR for the most recent investment banking manager note. - Plan For day 5 of PN administration, the following will be ordered. Spoke with provider today in regards to continuation of PPN - would like to proceed with it again today. GI consulted to follow up with patient in regards to PEG tube placement. Per GI note from today, patient now refusing any type of feeding tube to be placed. PPN had originally been started in hopes of transitioning to PEG tube. Provider aware PPN will not provide daily calories needed for nutritional status and that it is not recommended in patients with functioning GI tract. Will continue to follow - would recommend discontinuation once goals of care discussed with patient/palliative care. Macronutrients Amino acids 75 grams/day Dextrose 100 grams/day Lipids 40 grams/day Micronutrients Combined electrolytes 20 mL - contains 35 mEq Na, 20 meq K, 4.5 mEq Ca, 5 mEq Mg , 35 mEq Cl, 29.5 mEq acetate per 20 mL Sodium phosphate 27 MMol Sodium chloride 80 mEq Potassium chloride 20 mEq Multivitamins 10 mL Trace Elements 1 mL Additional additives: Total volume 2400 mL to be infused over 24 hrs will provide 1040 kcal/day Final osmolarity 665 mOsm/L - okay Labs, as indicated, will be ordered per protocol Pharmacy will continue to follow and adjust parenteral nutrition orders on a daily basis. Thank you for allowing us to participate in the care of this patient.
--- NOTE | 2018-04-11 15:46 | Hospitalist Progress Note ---
Date of Service April 11, 2018 Assessment & Plan (1) Hemiparesis of right dominant side: Overall prognosis remains poor Getting palliative radiation treatment, received 2 out of 5 treatment Last day of palliative treatment on 04/17/2018 Appreciate input from palliative care POLST form signed by patient's son with patient present And does not want any feeding tube, no heroic measure, DNR/DNI If clinical status continues to worsen willing to change care to hospice comfort care Plan to complete palliative radiation treatment at [facility] Then transition to skilled rehab at [facility] Patient will likely continue PPN Case management was discussed with [facility] regarding PPN 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 presented with Right hemiparesis Received first cessation of palliative radiation treatment yesterday 04/08/2018 Patient is having waxing/neurological symptoms, CT head noncontrast done for on 04/08/2018 for change/worsening of right hemiparesis: Shows presence of hemorrhage in left rachael mass, with no evidence of mass-effect Patient will continue with palliative radiation treatment Overall prognosis remains very poor Discussed the case with [facility] neurology Dr.Andrew Delong MRI images reviewed by Given the position of pontine lesion, marked vasogenic edema, advanced age High risk for surgical resection, with poor outcome Recommend continue with palliative radiation treatment pt presented with rt sided weakness /hemiparesis due to metastatic brain lesion involving left side of rachael MRI of brain : . Intra-axial 2.2 cm mass in the left rachael most suspicious for a metastatic lesion. Correlate with the history of malignancy. Surrounding abnormal signal intensity may represent reactive vasogenic edema or, less likely, regional invasion. Differential considerations include primary glioma or lymphoma. 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 Christiansen: Malignant spindle cell neoplasm, positive margin Status post wide excision with skin grafting by Dr. 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 Myrick at [facility] Status post adjuvant radiation treatment completed on April 2017 Developed pleuritic chest pain in Jan 2018 was seen at [facility] CT chest with contrast: Right upper lobe lung nodule PET scan on 03/09/18 and CTA of chest : FDG avid 3.2 into 2.7 cm paramediastinal right lower lobe soft tissue mass s/p resection by Dr. Carroll on Mar 17 2018. 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 pt been followed at dermatology for recurrent scalp lesion pn 04/04/18 had excision. Pathology pending Hematology oncology consult appreciated At present patient functional status is very poor to consider systemic chemo or immunotherapy Patient started with palliative radiation treatment d/w neurosurgery at [facility], given location of tumor to high risk for surgical resection, outcome will not be favorable given patient's advanced age, recurrent meds of squamous cell carcinoma at different sites (3) Dysphagia: Patient does not want feeding tube, Appreciate input help from palliative care Continue n.p.o., on PPN Presents with left pontine lesion acid with severe vasogenic edema Patient was unable to swallow her own secretions, requiring constant sections - appreciate input from speech pathology - VFSS done severe esophageal dysmotility noted with aspiration of barium also no relaxation of lower esophageal sphincture noted result of VFSS explained to Patient and son pt is unable to swallow saliva , and continued to suction out remaining portion of barium (4) Esophageal dysphagia: due to metastatic brain lesion on left rachael with associated severe vasogenic edema -possible causing mass effect to cranial nerve severe bedside dysphagia noted , unable to manage oral secretions VFSS -severe esophageal dysmotility with no evidence of peristalsis /absence of lower esophageal sphincter -leading to regurgitation and aspiration of barium ordered for NPO , radiation oncology consulted for palliative raditation tx pt aware of the poor prognosis Does not want feeding tube (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: At age 17 (6) Vasogenic cerebral edema: due to metastatic brain lesion 2.1 cm on left rachael -evident in MRI of brain started on IV decadron radiation oncology consulted Patient will continue with palliative radiation treatment CODE STATUS : d/ w patient , aware of the poor prognosis has living will does not want heroic measures /CPR /mechanical ventilation DNR/DNI Appreciate input from palliative care Referral made to [facility] per patient's request Plan to transition to [facility] possible skilled status/to transition to hospice care with clinical decline Appreciate input from case management Subjective Status post palliative radiation treatment today Feels tired Physical Exam 2 Vital Signs (Past 24 Hours): Last Vital Signs Temp 36.5 C 04/11/18 15:23 Pulse 59 L 04/11/18 15:23 Resp 16 04/11/18 15:23 BP 133/69 04/11/18 15:23 Pulse Ox 92 04/11/18 15:23 Constitutional: WD/WN, vitals as above + physical limitations; no acute distress (Awake and alert, normal mental and cognition,) Eyes: + anicteric sclerae Neck: trachea midline, no thyromegaly Respiratory: normal respiratory effort; no respiratory distress and no cough Cardiovascular: RRR, no murmur, no edema Rate/Rhythm: regular rate and regular rhythm Gastrointestinal (Abdomen): Inspection/Auscultation: normal bowel sounds; no abdominal edema Percussion/Palpation: abdomen soft; abdomen nontender Neurologic: awake Speech / Cognition: + expressive aphasia (rt hemiparesis ) Motor/Sensory: + tremor (Right lower extremity) and + abnormal movement ( Myoclonic jerk on right lower extremity) Psychiatric: A+Ox3, euthymic affect _ (1) Dysphagia Dysphagia type: esophageal phase Qualified Code(s): R13.10 - Dysphagia, unspecified (2) Hemiparesis of right dominant side Cerebrovascular disease type: Hemiparesis etiology: non-cerebrovascular etiology Qualified Code(s): G81.91 - Hemiplegia, unspecified affecting right dominant side (3) Amputation of finger of left hand Encounter type: sequela Qualified Code(s): S68.119S - Complete traumatic metacarpophalangeal amputation of unspecified finger, sequela
--- NOTE | 2018-04-11 15:47 | Palliative Care Consultation ---
Date of Consultation April 11, 2018 Assessment & Plan (1) Palliative care encounter: Patient seen and examined with his son at bedside along with a friend. Permission to speak in front of the friend was granted by the patient and son. 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 Patient presented to the emergency room on 04/05 with increasing right-sided weakness, increasing dysphasia and was found to have a 2.3 cm lesion of the left aspect of the ventral rachael. Patient has received 2 out of the planned 5 XRT sessions that are planned for every other day. Patient was also started on high-dose IV Decadron. Patient with dense right hemiparesis and dysarthria, tearful at times. Patient goal is to complete radiation-see if there is any improvement, and then go to [place] for rehab. Patient clearly stated that he does not want intubation, chest compressions or shock-he stated if it was his time to go, to just let him go. Discussed keeping patient comfortable, his main concern is with his dysphasia that he would have a choking spell. Patient uses Yankauer suction to self suction as needed. Patient's son is supportive of his decisions. POLST form completed, signed by the son as patient is unable to sign. Patient is a DNR, outpatient goal is comfort care, no feeding tube. 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 Patient received #2 of 5 sessions planned-scheduled every other day. -Dysphasia-patient on PPN-discussed with case management will need to determine if [facility] can continue PPN at their facility. -POLST form completed -Goal is to complete XRT and then transferred to [facility] for rehab. (2) Hemiparesis of right dominant side: Dense right-sided hemiparesis-we will continue to monitor for any improvement with continued XRT Hemiparesis etiology: non-cerebrovascular etiology Cerebrovascular disease type: Qualified Code(s): G81.91 - Hemiplegia, unspecified affecting right dominant side (3) Dysphagia: -Patient is n.p.o., continue PPN. We will continue to monitor for any signs of improvement with XRT. -Continue Yankauer suction for oral secretions -Consider scopolamine patch to decrease oral secretions Dysphagia type: esophageal phase Qualified Code(s): R13.10 - Dysphagia, unspecified (4) Metastatic squamous cell carcinoma: With new lesion in the ventral rachael-continue planned palliative XRT History of Present Illness Reason for Consultation: Address goals of care, POLST form completion Requesting Physician: Dr Franchesca Cano Attending Physician: Franchesca Cano MD History of Present Illness Patient seen and examined with his son at bedside along with a friend. Permission to speak in front of the friend was granted by the patient and son. 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 Patient presented to the emergency room on 04/05 with increasing right-sided weakness, increasing dysphasia and was found to have a 2.3 cm lesion of the left aspect of the ventral rachael. Patient has received 2 out of the planned 5 XRT sessions that are planned for every other day. Patient was also started on high-dose IV Decadron. Patient with dense right hemiparesis and dysarthria, tearful at times. Patient goal is to complete radiation-see if there is any improvement, and then go to [facility] for rehab. Patient clearly stated that he does not want intubation, chest compressions or shock-he stated if it was his time to go, to just let him go. Discussed keeping patient comfortable, his main concern is with his dysphasia that he would have a choking spell. Patient uses Yankauer suction to self suction as needed. Patient's son is supportive of his decisions. POLST form completed, signed by the son as patient is unable to sign. Patient is a DNR, outpatient goal is comfort care, no feeding tube. CODE STATUS-DNR Allergies Allergy/AdvReac Type Severity Reaction Status Date / Time morphine AdvReac Unknown SLOWS HR Verified 03/19/18 10:34 Home Medications Home Medications Medication Instructions Recorded Confirmed Type diazepam [Valium] 5 mg PO HS PRN 03/15/18 04/05/18 History ibuprofen [Advil] 200 mg PO QID PRN 03/15/18 04/05/18 History omeprazole 20 mg PO QAM 03/15/18 04/05/18 History triamcinolone acetonide 1 applic TOPICAL BID 03/15/18 04/05/18 History acetaminophen [Tylenol Extra 500 - 1,000 mg PO Q6H PRN 04/05/18 04/05/18 History Strength] Patient History Medical History Metastatic squamous cell carcinoma (Chronic) s/p resection of scalp in Jan 2017, s/p resection of mets to RLL by Dr. 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 Surgical History History of herniorrhaphy (Resolved) right inguinal hernia repair History of cholecystectomy (Resolved) History of bowel resection (Resolved) HX -- IBS and needed due to unable to pass colonoscope History of esophagogastroduodenoscopy (EGD) (Resolved) Family History Father Cancer lung cancer Lung disease worked at [employer] Mother Heart disease Mother HTN (hypertension) Social History marital status: / Current Living Situation: Alone Other Information That Helps Us Care for You: No Feels Safe at Home: Yes Safety Concerns: Feels Safe At This Time Smoking Status: Current every day smoker Tobacco Type: pipe Do You Dip or Chew Tobacco: No Second Hand Exposure: No Tobacco Cessation Education Requested by Patient: No Hx Alcohol Use: Yes Alcohol type: beer Alcohol Intake Frequency: holidays/ special occasions only Hx Substance Use: No Beliefs That Will Affect Care: None Preferred Language: Maori Communication Ability: Effective Firearms Model Maker Required: No Review of Systems Ear, Nose, Mouth, Throat: + dysphagia Respiratory: no problem reported Cardiovascular: + problem reported; no chest pain Gastrointestinal: + dysphagia Right sided paralysis Integumentary: no problem reported Right sided paralysis, dysphasia, dysarthria Appropriate Endocrine: no problem reported Physical Exam 2 Vital Signs (Past 24 Hours): Last Vital Signs Temp 36.5 C 04/11/18 15:23 Pulse 59 L 04/11/18 15:23 Resp 16 04/11/18 15:23 BP 133/69 04/11/18 15:23 Pulse Ox 92 04/11/18 15:23 Constitutional: Awake alert and oriented x4 ENMT: Dysphasia, unable to handle oral secretions, using Yankauer suction as needed Respiratory: Unlabored Cardiovascular: Regular rate, no edema Gastrointestinal (Abdomen): Soft, nontender Musculoskeletal: No movement right upper extremity or right lower extremity, difficulty using left upper extremity due to traumatic amputation of fingers Skin: No pallor Neurologic: Dense right hemiparesis, alert and oriented x4 Psychiatric: Appropriate mood and behavior given current circumstances Time Spent Attending Total time spent 70 minutes with greater than 50% of the time at bedside discussing patient's current status, goals of care and completing POLST form. Collaborated with case management as well as attending physician.
--- NOTE | 2018-04-11 15:48 | Hematology/Oncology Prog Note ---
Date of Service April 11, 2018 Assessment & Plan (1) Right sided weakness: * Patient with a left sided pontine lesion, 2 cm, with vasogenic edema * Patient had repeat head CT on Wednesday, small area of hemorrhage * Neurology has been consulted- patient on Keppra 500 mg BID since he had some seizure like activity of RLE and stay on dexamethasone 6mg q6h * Monitor neurologic progress with the start of XRT, patient started on PPN * Radiation Oncology has also been consulted- #2/5 of palliative treatments today * Neurosurg unable to intervene with the met location * Patient has poor overall prognosis, patient has not had neurologic improvement over the weekend, regression in strength of RUE/RLE * Continues to have aspirate his secretions as cannot swallow * Per patient's son, palliative med was by today, planning if no significant improvement toward end of RT to transition to hospice care at [place], per patient's choice (2) Metastatic squamous cell carcinoma: * Diagnosed with SCC of scalp with resection in Jan 2017 and underwent radiation by Dr. Myrick in April 2017. Developed pleuritic chest pain in Jan 2018 and metastatic SCC was found on RLL, which was resected by Dr. Carroll on Mar 17 2018 * Dr. Reeder met this patient for the 1st time on 03/29/2018 and recommended foundation 1 testing to include PD L1 diff decide about systemic treatment- this is pending * The patient had a PET-CT in March 2018 that showed the right lower lobe metastasis which has since been resected but otherwise no other metastatic disease was noted at that time * CT abd/pelvis from today does not show abd/pelvis mets Dr. Washington is the covering medical oncologist. Subjective Patient was rounded on at beside. His son was at bedside. He started palliative XRT on Wednesday, total of 5 days planned, had 2nd dose today. He is unable to lift right leg or RUE. His remains dysarthric. He is on PPN. No other stated issues. He denies headache. Physical Exam 2 Vital Signs (Past 24 Hours): Last Vital Signs Temp 36.5 C 04/11/18 15:23 Pulse 59 L 04/11/18 15:23 Resp 16 04/11/18 15:23 BP 133/69 04/11/18 15:23 Pulse Ox 92 04/11/18 15:23 Constitutional: well nourished and + frail appearing Respiratory: normal respiratory effort Auscultation: + rhonchi Cardiovascular: Rate/Rhythm: regular rate and regular rhythm Results & Data Laboratory Results CMP/Phosphorus/Mg from today reviewed
[2018-04-11] MEDS ORDERED: CUSTOM PERIPHERAL PN IV SCH (16:00)
[2018-04-11] MEDS: LORazepam 0.5 MG/1 ML VIAL IV SCH (20:36)
[2018-04-12] MEDS: DEXAMETHASONE SOD PHOSPHATE 6 MG in SYRINGE 0 ML IV SCH ×3 (05:20→18:08)
[2018-04-12] MEDS: PANTOprazole 40 MG in SYRINGE 0 ML IV SCH (07:39)
[2018-04-12] MEDS: NYSTATIN SUSP 500,000 U/5 ML UDC PO SCH ×4 (07:39→20:48)
[2018-04-12 10:05] LABS: Blood Urea Nitrogen 36 mg/dl (7-18); Calcium 7.1 mg/dl (8.5-10.1); Carbon Dioxide 21 mmol/L (21-32); Chloride 94 mmol/L (98-107); Creatinine Clr Calc Pharmacy 53.3 ml/min; Est GFR (African American) 86.6; Est GFR (Non-African American) 74.7; Glucose 451 mg/dl (70-99); Magnesium 2.2 mg/dl (1.8-2.4); Potassium 5.7 mmol/L (3.5-5.1)
[2018-04-12 10:07] LABS: Sodium 126 mmol/L (136-145)
[2018-04-12 10:08] LABS: Phosphorus 6.7 mg/dl (2.5-4.9)
[2018-04-12] MEDS ORDERED: PHARMACY GLYCEMIC MGMT CONSULT PRN (10:31)
[2018-04-12] MEDS ORDERED: GLUCOSE 10 TABS/TUBE PO PRN (11:46)
[2018-04-12] MEDS ORDERED: GLUCOSE 40% GEL 15 GM TUBE PO PRN (11:46)
[2018-04-12] MEDS ORDERED: DEXTROSE 50% 50 ML SYRINGE IV PRN (11:46)
[2018-04-12] MEDS ORDERED: GLUCAGON FOR INJ 1 MG VIAL SQ PRN (11:46)
[2018-04-12] MEDS ORDERED: CARBOHYDRATES FOR HYPOGLYCEMIA PO PRN (11:46)
--- NOTE | 2018-04-12 12:01 | Pharmacy Report ---
PHA: Parenteral Nutrition Con - Date of Service April 12, 2018 - Scope Pharmacy was consulted on 04/07/18 to manage parenteral nutrition orders for this patient. - Subjective The patient is currently on day 6 of peripheral parenteral nutrition for failed swallow eval, NPO since 04/05/18 with metastatic brain tumor. - Objective Height: 5 ft 6 in Weight: 63.3 kg Diet: NPO Intake & Output (24hrs):: Intake & Output 04/10/18 04/11/18 04/12/18 04/13/18 06:59 06:59 06:59 06:59 Output Total 1100 / 1100 1475 / 1475 475 / 475 Balance -1100 / -1100 -1475 / -1475 -475 / -475 Weight 64.6 kg 64 kg 63.3 kg Laboratory Data (Last 24 Hr):: 04/12/18 07:09 Sodium 126 L D Potassium 5.7 H D Chloride 94 L Carbon Dioxide 21 BUN 36 H Creatinine 0.94 Glucose 451 H* Calcium 7.1 L Phosphorus 6.7 H D Magnesium 2.2 Nutrition Assessment:: Please refer to the Notes section of the EMR for the most recent sealer dry cell note. - Assessment 82 yr old male on Day #6 of PPN * Unable to provide daily calorie needs due to limited osmolarity with peripheral line * Severe electrolyte disturbances on AM labs; k 5.7, Phos 6.7, glucose 451, Na 126. No change in renal function. * Unknown cause of electrolyte disturbances - macronutrient and electrolyte amounts in TPN have changed minimally over the past 4 days. Repeat labs ordered for confirmation and within normal limits with the exception of Na. correction nutrition plan uncertain at this time * Last seen by speech therapy on 04/08. They recommended that patient remain NPO due to failed swallow eval. * PPN initiated in hopes of transitioning to PEG tube. * Patient evaluated by GI yesterday. He is now refusing any type of tube to be placed. * Discussed case at 4th floor rounds with dietary and palliative care; Will continue PPN until radiation treatment is complete. Plan is to have speech evaluate the patient again after completion of radiation. If no improvement seen and family decides to transition to hospice care, recommend discontinue of parenteral nutrition - Plan For day 6 of PN administration, the following will be ordered: Macronutrients Amino acids 75 grams/day Dextrose 100 grams/day Lipids 40 grams/day Micronutrients Combined electrolytes 20 mL - contains 35 mEq Na, 20 meq K, 4.5 mEq Ca, 5 mEq Mg , 35 mEq Cl, 29.5 mEq acetate per 20 mL Sodium phosphate 27 MMol Sodium chloride 100 mEq Multivitamins 10 mL Trace Elements 1 mL Total volume 2400 mL to be infused over 24 hrs will provide 1040 kcal/day Final osmolarity 682 mOsm/L (this is slightly above the maximum of 600 mOsm/L for peripheral) Labs, as indicated, will be ordered per protocol Pharmacy will continue to follow and adjust parenteral nutrition orders on a daily basis. Thank you for allowing us to participate in the care of this patient.
[2018-04-12] MEDS: INSULIN ASPART 100 UNITS/ML 3 ML PEN SC SCH ×2 (12:15→18:14)
[2018-04-12 12:23] LABS: BUN Creatinine Ratio 41.2 (10-20); Calcium 8.1 mg/dl (8.5-10.1); Creatinine Clr Calc Pharmacy 52.8 ml/min; Est GFR (African American) 85.5; Est GFR (Non-African American) 73.7; Magnesium 2.1 mg/dl (1.8-2.4); Phosphorus 3.2 mg/dl (2.5-4.9); Potassium 4.1 mmol/L (3.5-5.1)
--- NOTE | 2018-04-12 15:08 | Pharmacy Report ---
Pharmacy Glycemic Short Note 2 - Date of Service April 12, 2018 - Glycemic Short BSG Results (Last 24 hours): 04/12/18 04/12/18 04/12/18 07:09 11:48 12:13 Glucose 451 H* 149 H POC Glucose 137 H OUTPATIENT ANTIDIABETIC REGIMEN: * none - no h/o DM ASSESSMENT: * Oscar is a 82 yr old male who presented with right hemiparesis secondary to metastatic tumor on left pontine region * Pharmacy was consulted for glycemic control due to fasting BSG of 451 mg/dL. Patient also had severe electrolyte disturbances on AM labs with no clear cause. Repeat BMP with mag and phos was ordered and all labs were within normal limits with the exception of sodium (135). Repeat glucose was 137 mg/dL. of note , patient has PPN infusing. * Novolog correctional insulin has been started. If patient requires no insulin over the next 12 hours, this can likely be discontinued. PLAN FOR INPATIENT GLYCEMIC CONTROL: * Hold outpatient oral diabetes medications * Basal insulin * none * Bolus insulin * NovoLog per scale ACHS or Q6hrs while NPO * Goal Range: Low 140 mg/dL - High 180 mg/dL * Correction Factor: 35 mg/dL/unit * No carb coverage - insulin will be added to the PPN if needed
[2018-04-12] MEDS ORDERED: CUSTOM PERIPHERAL PN IV SCH (16:00)
--- NOTE | 2018-04-12 19:37 | Hematology/Oncology Prog Note ---
Date of Service April 12, 2018 Assessment & Plan (1) Right sided weakness: * Patient with a left sided pontine lesion, 2 cm, with vasogenic edema * Patient had repeat head CT on Wednesday, small area of hemorrhage * Patient on Keppra 500 mg BID and stays on dexamethasone 6mg q6h * Patient remains on PPN * Radiation Oncology has also been consulted- #3/5 of palliative treatments today * Patient has poor overall prognosis, patient has not had neurologic improvement since start of palliative XRT * Continues to have aspirate his secretions as cannot swallow * Planning if no significant improvement toward end of RT to transition to hospice care at [place], per patient's choice- palliative med would be helpful with this transition (2) Metastatic squamous cell carcinoma: * Diagnosed with SCC of scalp with resection in Jan 2017 and underwent radiation by Dr. Myrick in April 2017. Developed pleuritic chest pain in Jan 2018 and metastatic SCC was found on RLL, which was resected by Dr. Carroll on Mar 17 2018 * Dr. Reeder met this patient for the 1st time on 03/29/2018 and recommended foundation 1 testing to include PD L1 diff decide about systemic treatment- this is pending, but the results of this would be noncontributory as looks like patient to go on systemic palliative care * Dr. Washington is the covering medical oncologist. Subjective Patient was rounded on at beside. His son was at bedside. He started palliative XRT on Wednesday, total of 5 days planned, had 3rd dose today. He still is unable to lift right leg or RUE. His remains dysarthric. He is on PPN. No other stated issues. He has a headache, mild and feels dizzy today. Physical Exam 2 Vital Signs (Past 24 Hours): Last Vital Signs Temp 36.3 C L 04/12/18 16:00 Pulse 54 L 04/12/18 18:13 Resp 20 04/12/18 16:00 BP 143/77 H 04/12/18 18:13 Pulse Ox 92 04/12/18 16:00 Constitutional: well nourished and + frail appearing Respiratory: normal respiratory effort Auscultation: + rhonchi Cardiovascular: Rate/Rhythm: regular rate and regular rhythm Results & Data Laboratory Results BMP from 04/12/18 reviewed
[2018-04-12] MEDS: LORazepam 0.5 MG/1 ML VIAL IV SCH (20:48)
--- NOTE | 2018-04-12 23:53 | Hospitalist Progress Note ---
Date of Service April 12, 2018 Assessment & Plan (1) Hemiparesis of right dominant side: Overall prognosis remains poor Getting palliative radiation treatment, received 3 out of 5 treatment Last day of palliative treatment on wednesday Appreciate input from palliative care POLST form signed by patient's son with patient present And does not want any feeding tube, no heroic measure, DNR/DNI If clinical status continues to worsen willing to change care to hospice comfort care Plan to complete palliative radiation treatment at [facility] Then transition to skilled rehab at [place] Patient will likely continue PPN Case management was discussed with [place] regarding PPN 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 presented with Right hemiparesis Received first cessation of palliative radiation treatment yesterday 04/08/2018 Patient is having waxing/neurological symptoms, CT head noncontrast done for on 04/08/2018 for change/worsening of right hemiparesis: Shows presence of hemorrhage in left rachael mass, with no evidence of mass-effect Patient will continue with palliative radiation treatment Overall prognosis remains very poor Discussed the case with [facility] neurology Dr.Andrew Delong MRI images reviewed by Given the position of pontine lesion, marked vasogenic edema, advanced age High risk for surgical resection, with poor outcome Recommend continue with palliative radiation treatment pt presented with rt sided weakness /hemiparesis due to metastatic brain lesion involving left side of rachael MRI of brain : . Intra-axial 2.2 cm mass in the left rachael most suspicious for a metastatic lesion. Correlate with the history of malignancy. Surrounding abnormal signal intensity may represent reactive vasogenic edema or, less likely, regional invasion. Differential considerations include primary glioma or lymphoma. 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 Christiansen: Malignant spindle cell neoplasm, positive margin Status post wide excision with skin grafting by Dr. 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 Myrick at [facility] Status post adjuvant radiation treatment completed on April 2017 Developed pleuritic chest pain in Jan 2018 was seen at [facility] CT chest with contrast: Right upper lobe lung nodule PET scan on 03/09/18 and CTA of chest : FDG avid 3.2 into 2.7 cm paramediastinal right lower lobe soft tissue mass s/p resection by Dr. Carroll on Mar 17 2018. 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 pt been followed at dermatology for recurrent scalp lesion pn 04/04/18 had excision. Pathology pending Hematology oncology consult appreciated At present patient functional status is very poor to consider systemic chemo or immunotherapy Patient started with palliative radiation treatment d/w neurosurgery at [facility], given location of tumor to high risk for surgical resection, outcome will not be favorable given patient's advanced age, recurrent meds of squamous cell carcinoma at different sites (3) Dysphagia: Patient does not want feeding tube, Appreciate input help from palliative care Continue n.p.o., on PPN Presents with left pontine lesion acid with severe vasogenic edema Patient was unable to swallow her own secretions, requiring constant sections - appreciate input from speech pathology - VFSS done severe esophageal dysmotility noted with aspiration of barium also no relaxation of lower esophageal sphincture noted result of VFSS explained to Patient and son pt is unable to swallow saliva , and continued to suction out remaining portion of barium (4) Esophageal dysphagia: due to metastatic brain lesion on left rachael with associated severe vasogenic edema -possible causing mass effect to cranial nerve severe bedside dysphagia noted , unable to manage oral secretions VFSS -severe esophageal dysmotility with no evidence of peristalsis /absence of lower esophageal sphincter -leading to regurgitation and aspiration of barium ordered for NPO , radiation oncology consulted for palliative raditation tx pt aware of the poor prognosis Does not want feeding tube (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: At age 17 (6) Vasogenic cerebral edema: due to metastatic brain lesion 2.1 cm on left rachael -evident in MRI of brain started on IV decadron radiation oncology consulted Patient will continue with palliative radiation treatment CODE STATUS : d/ w patient , aware of the poor prognosis has living will does not want heroic measures /CPR /mechanical ventilation POLST form filled no feeding tube DNR/DNI Appreciate input from palliative care Referral made to [facility] per patient's request Plan to transition to [facility] possible skilled status/to transition to hospice care with clinical decline Appreciate input from case management Subjective Status post palliative radiation treatment today 3/5 session feels wiped out and tired speech is more dysarthric , worsening of oral secretion -requiting frequent suction( pt been doing himself ) dense hemiparesis on rt side ( symptom noted to worsen in last 1-2 day) rt sided eye droop noted pt does not want any feeding tube no heroic measure wants to complete Palliative rad tx then transition to [facility] Physical Exam 2 Vital Signs (Past 24 Hours): Last Vital Signs Temp 36.3 C L 04/12/18 16:00 Pulse 54 L 04/12/18 18:13 Resp 20 04/12/18 16:00 BP 143/77 H 04/12/18 18:13 Pulse Ox 92 04/12/18 16:00 Constitutional: + ill appearing, + altered mental status (very lethergic , worsening of dysarthria , ), + physical limitations and + lethargic Eyes: + eyelid abnormality (marked rt eyelid droop ) ENMT: left facial droop thick secretion in oral cavitiy requiring suctioning Respiratory: normal respiratory effort; no respiratory distress and no cough Cardiovascular: RRR, no murmur, no edema Rate/Rhythm: regular rate and regular rhythm Gastrointestinal (Abdomen): Inspection/Auscultation: normal bowel sounds; no abdominal edema Percussion/Palpation: abdomen soft; abdomen nontender Neurologic: + confused (episodes of confusion noted , pt is aware of the symptom and tries to correct ) Speech / Cognition: + abnormal speech ( dysarthric ) and + expressive aphasia (rt hemiparesis ) _ (1) Dysphagia Dysphagia type: esophageal phase Qualified Code(s): R13.10 - Dysphagia, unspecified (2) Hemiparesis of right dominant side Cerebrovascular disease type: Hemiparesis etiology: non-cerebrovascular etiology Qualified Code(s): G81.91 - Hemiplegia, unspecified affecting right dominant side (3) Amputation of finger of left hand Encounter type: sequela Qualified Code(s): S68.119S - Complete traumatic metacarpophalangeal amputation of unspecified finger, sequela
[2018-04-13] MEDS: INSULIN ASPART 100 UNITS/ML 3 ML PEN SC SCH ×2 (00:53→06:51)
[2018-04-13] MEDS: DEXAMETHASONE SOD PHOSPHATE 6 MG in SYRINGE 0 ML IV SCH ×5 (00:55→23:22)
[2018-04-13 07:36] LABS: BUN Creatinine Ratio 47.1 (10-20); Calcium 8.1 mg/dl (8.5-10.1); Creatinine Clr Calc Pharmacy 65.6 ml/min; Est GFR (African American) 97.3; Est GFR (Non-African American) 83.9; Magnesium 2.1 mg/dl (1.8-2.4); Phosphorus 3.1 mg/dl (2.5-4.9); Potassium 4.1 mmol/L (3.5-5.1)
[2018-04-13] MEDS: NYSTATIN SUSP 500,000 U/5 ML UDC PO SCH ×4 (07:54→21:05)
[2018-04-13] MEDS: PANTOprazole 40 MG in SYRINGE 0 ML IV SCH (07:54)
[2018-04-13] MEDS: ATROPINE SULFATE 1% OP SOLN 5 ML BTL SL PRN ×2 (07:59→10:04)
--- NOTE | 2018-04-13 12:31 | Hospitalist Progress Note ---
Date of Service April 13, 2018 Assessment & Plan (1) Pontine lesion: Presented with progressive dysphagia and right-sided weakness. CT head 04/05/18 demonstrated ill-defined left pontine lesion. 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 Received IV dexamethasone. Medical Oncology and Radiation Oncology consulted. Stereotactic external beam radiation therapy recommended and initiated. Worsening right-sided weakness on 04/08. CT demonstrated hemorrhage associated with left pontine lesion. Continue XRT + steroids. Steroid taper per Radiation Oncology. Continue PT and OT. High aspiration risk- continue NPO status. Prognosis poor. Palliative Care consulted. (2) Nutrition disorder: Progressive dysphagia due to pontine lesion. Seen by OUTREACH COUNSELOR. High aspiration risk. NPO status recommended. PEG discussed; patient does not wish to pursue. Currently receiving PPN. Need to discuss nutrition options / goals further with patient and his son. (3) DVT prophylaxis: No anticoagulants due to pontine lesion with hemorrhage. SCD's. (4) Discharge planning issues: Anticipated need for skilled care or hospice. Case Management consulted. Patient prefers [facility], but they may not have a bed available. Subjective Recheck for multiple problems. Patient seen in his room around 1200. Son visiting. Patient having some difficulty communicating due to dysarthria, but he is able to express his thoughts. Occasional congested cough. No fever or SOB. No headache. No pain. No nausea or vomiting. Physical Exam 2 Vital Signs (Past 24 Hours): Last Vital Signs Temp 36.4 C L 04/13/18 08:03 Pulse 64 04/13/18 08:03 Resp 17 04/13/18 08:03 BP 153/73 H 04/13/18 08:03 Pulse Ox 93 04/13/18 08:03 Constitutional: no acute distress Respiratory: Auscultation: + rhonchi (few, scattered) Cardiovascular: Rate/Rhythm: regular rate and regular rhythm Extremities: + edema (trace pretibial) Gastrointestinal (Abdomen): Inspection/Auscultation: normal bowel sounds Percussion/Palpation: abdomen soft; abdomen nontender Neurologic: + focal motor deficit (right facial palsy, right hemiparesis) Speech / Cognition: + abnormal speech (dysarthric) Results & Data Laboratory Results Laboratory Results - last 24 hr 04/13/18 04/13/18 04/13/18 06:42 06:47 06:58 Sodium 134 L Potassium 4.1 Chloride 102 Carbon Dioxide 26 Anion Gap 6.0 BUN 36 H Creatinine 0.77 Est Cr Clr Drug Dosing 65.6 Est GFR ( Amer) 97.3 Est GFR (Non-Af Amer) 83.9 BUN/Creatinine Ratio 47.1 H Glucose 176 H POC Glucose 144 H 175 H Calcium 8.1 L Phosphorus 3.1 Magnesium 2.1 04/13/18 04/13/18 04/13/18 07:48 12:29 17:05 Sodium Potassium Chloride Carbon Dioxide Anion Gap BUN Creatinine Est Cr Clr Drug Dosing Est GFR ( Amer) Est GFR (Non-Af Amer) BUN/Creatinine Ratio Glucose POC Glucose 146 H 159 H 145 H Calcium Phosphorus Magnesium 04/13/18 23:44 Sodium Potassium Chloride Carbon Dioxide Anion Gap BUN Creatinine Est Cr Clr Drug Dosing Est GFR ( Amer) Est GFR (Non-Af Amer) BUN/Creatinine Ratio Glucose POC Glucose 156 H Calcium Phosphorus Magnesium
--- NOTE | 2018-04-13 14:03 | Palliative Care Progress Note ---
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 Started on scalp, mets to lung and brain. -Left ventral rachael brain lesion-2.3 cm-receiving palliative XRT. Patient received #4 of 5 sessions, last one tomorrow 04/14. -Dysphagia-patient on PPN. [facility] was first SNF choice, but they cannot accept PPN. Will continue PPN during hospitalization, but might discontinue prior to discharge if goal is for comfort/hospice. To be determined. -POLST form completed by Dr. Wagner with patient and son on 04/11. -Goal is to complete XRT and then transferred to SNF for short skilled stay then possibly transition to hospice care. -Patient's son Gustavo had some qusetions about prognosis. He shared that he feels his father is fading away little by little each day and is rapidly declining. We talked at length, Dr. Garcia also spoke with him. (2) Hemiparesis of right dominant side: (3) Dysphagia: (4) Metastatic squamous cell carcinoma: Subjective Constitutional: + weakness; no fever and no chills Ear, Nose, Mouth, Throat: + dry mouth and + dysphagia Respiratory: + cough; no dyspnea Cardiovascular: no chest pain and no edema Gastrointestinal: no abdominal pain, no nausea and no vomiting Neurologic: + confusion (reported by patient's son) Psychiatric: + hallucinations (happens after XRT per the son) Physical Exam 2 Vital Signs (Past 24 Hours): Last Vital Signs Temp 36.4 C L 04/13/18 08:03 Pulse 64 04/13/18 08:03 Resp 17 04/13/18 08:03 BP 153/73 H 04/13/18 08:03 Pulse Ox 93 04/13/18 08:03 Constitutional: + ill appearing (chronically); no acute distress ENMT: Ears: no hearing impairment Mouth: + oral mucosal abnormality (very dry. thick white, tenacious secretions on tongue.) Neck: normal visual inspection and trachea midline Respiratory: normal respiratory effort, lungs clear to auscultation Auscultation: + diminished lung sounds Cardiovascular: RRR, no murmur, no edema Vessels: dorsalis pedis pulses present Extremities: no edema Gastrointestinal (Abdomen): Inspection/Auscultation: abdomen normal to inspection; abdomen not distended Percussion/Palpation: abdomen soft; abdomen nontender Neurologic: awake; not confused Speech / Cognition: + abnormal speech ( very weakened, speech somewhat garbled) Motor/Sensory: + abnormal movement ( right arm weakness) Psychiatric: Orientation: oriented x 3 Affect: euthymic affect Time Spent Midlevel 40 minutes with >50% of time spent at bedside with patient, son, and physician discussing condition and GOC. _ (1) Hemiparesis of right dominant side Hemiparesis etiology: non-cerebrovascular etiology Cerebrovascular disease type: Qualified Code(s): G81.91 - Hemiplegia, unspecified affecting right dominant side (2) Dysphagia Dysphagia type: esophageal phase Qualified Code(s): R13.10 - Dysphagia, unspecified
[2018-04-13] MEDS ORDERED: CUSTOM PERIPHERAL PN IV SCH (16:00)
[2018-04-13] MEDS: LORazepam 0.5 MG/1 ML VIAL IV SCH (21:52)
[2018-04-14] MEDS: DEXAMETHASONE SOD PHOSPHATE 6 MG in SYRINGE 0 ML IV SCH ×3 (05:42→17:59)
[2018-04-14] MEDS: NYSTATIN SUSP 500,000 U/5 ML UDC PO SCH ×4 (08:06→20:38)
[2018-04-14] MEDS: PANTOprazole 40 MG in SYRINGE 0 ML IV SCH (08:06)
[2018-04-14 08:16] LABS: Creatinine Clr Calc Pharmacy 65.6 ml/min
[2018-04-14 08:23] LABS: Bilirubin,Total 0.7 mg/dl (0.2-1)
[2018-04-14 10:39] LABS: Potassium 4.2 mmol/L (3.5-5.1)
[2018-04-14 10:40] LABS: BUN Creatinine Ratio 49.2 (10-20); Calcium 8.6 mg/dl (8.5-10.1); Est GFR (African American) 99.4; Est GFR (Non-African American) 85.8; Phosphorus 2.8 mg/dl (2.5-4.9)
[2018-04-14 10:41] LABS: Magnesium 1.9 mg/dl (1.8-2.4)
[2018-04-14 10:43] LABS: Prealbumin 23.8 mg/dl (20-40)
--- NOTE | 2018-04-14 11:12 | Progress Note ---
DATE: 04/14/2018 Mr. Lujan was seen today. He is extremely lethargic. He has bled into this metastatic lesion in his brain. He is receiving radiation; however, it is extremely unlikely he is going to recover from this. His last course of radiation is today. He has had a rapidly deteriorating course Dictation Ends Here
--- NOTE | 2018-04-14 15:29 | Palliative Care Progress Note ---
Date of Service April 14, 2018 Assessment & Plan (1) Palliative care encounter: Patient seen and examined with his son at bedside . 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 Patient presented to the emergency room on 04/05 with increasing right-sided weakness, increasing dysphasia and was found to have a 2.3 cm lesion of the left aspect of the ventral rachael. Patient completed 5/5 XRT sessions today. Patient was also on high-dose IV Decadron. Patient with dense right hemiparesis and dysarthria, able to respond to questions by saying yes or no. Patient goal is to complete radiation-see if there is any improvement, and then go to [facility] for rehab. [facility] is not able to continue PPN-discussed at length with son supporting patient over the next several days with IV fluids if a bed available at [facility]. Discussed end-of-life issues at length with son in private. 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 Patient received #2 of 5 sessions planned-scheduled every other day. -Dysphasia-patient on PPN-discussed with case management will need to determine if [facility] can continue PPN at their facility. -POLST form completed -Goal is to complete XRT and then transferred to [facility] for rehab, with understanding that if no improvement patient's goal would be comfort/end-of- life care. (2) Hemiparesis of right dominant side: Dense right-sided hemiparesis-we will continue to monitor for any improvement with continued XRT (3) Dysphagia: -Patient is n.p.o., continue PPN. We will continue to monitor for any signs of improvement with XRT. -Continue Yankauer suction for oral secretions -PRN atropine caused thicker secretions which were difficult to clear-will DC (4) Metastatic squamous cell carcinoma: With new lesion in the ventral rachael-continue planned palliative XRT Subjective Patient seen and examined, patient's son at bedside. Patient just returned from his final session of XRT-patient fatigued. Patient able to participate in discussion by nodding yes or no, kept his eyes closed during visit. Patient indicated he is comfortable, no acute distress. Patient did have increased difficulty clearing secretions when thickened with as needed atropine- this was discontinued, patient continues to use Yankauer suction as needed for excess oral secretions. Patient is currently receiving PPN. Review of Systems Denies fever, chills, chest pain, shortness of breath Physical Exam 2 Vital Signs (Past 24 Hours): Last Vital Signs Temp 36.0 C L 04/14/18 13:00 Pulse 56 L 04/14/18 13:00 Resp 16 04/14/18 13:00 BP 147/81 H 04/14/18 13:00 Pulse Ox 97 04/14/18 13:00 Physical Exam: Patient fatigued after XRT, no acute distress HEENT: Normal hearing Respiratory: Good air movement, unlabored respirations CV: Regular rate, no edema Abdomen: Soft nontender Time Spent Attending Total time spent 35 minutes with greater than 50% of the time spent at bedside discussing patient's current treatment, treatment options and goals of care. _ (1) Hemiparesis of right dominant side Hemiparesis etiology: non-cerebrovascular etiology Cerebrovascular disease type: Qualified Code(s): G81.91 - Hemiplegia, unspecified affecting right dominant side (2) Dysphagia Dysphagia type: esophageal phase Qualified Code(s): R13.10 - Dysphagia, unspecified
[2018-04-14] MEDS ORDERED: CUSTOM PERIPHERAL PN IV SCH (16:00)
[2018-04-14] MEDS: LORazepam 0.5 MG/1 ML VIAL IV SCH (20:37)
--- NOTE | 2018-04-14 20:44 | Hospitalist Progress Note ---
Date of Service April 14, 2018 Assessment & Plan (1) Pontine lesion: Presented with progressive dysphagia and right-sided weakness. CT head 04/05/18 demonstrated ill-defined left pontine lesion. 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 Received IV dexamethasone. Medical Oncology and Radiation Oncology consulted. Stereotactic external beam radiation therapy recommended and initiated. Worsening right-sided weakness on 04/08. CT demonstrated hemorrhage associated with left pontine lesion. Last session of radiation therapy today. Discussed steroid taper with Radiation Oncology. Continue current dose of dexamethasone for 7 more days, then reduce dose by 50% on a weekly basis. Continue PT and OT. High aspiration risk- continue NPO status. Prognosis poor. Palliative Care consulted. (2) SCC (squamous cell carcinoma): Metastatic squamous cell carcinoma of skin. Not candidate for chemotherapy at this time due to poor functional status. 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 Seen by CAD DESIGN ENGINEER. High aspiration risk. NPO status recommended. PEG discussed; patient does not wish to pursue. Currently receiving PPN. Discussed nutrition options / goals further with patient and his son today. PEG again discussed, patient declines. Will request PICC for TPN. Patient will reconsider nutrition options once response to radiation therapy is determined. (4) DVT prophylaxis: No anticoagulants due to pontine lesion with hemorrhage. SCD's. (5) Discharge planning issues: Anticipated need for skilled care or eventual hospice. Case Management consulted. Subjective Recheck for multiple problems. Patient seen in his room around 1100. Son visiting. No headache. No fever. Occasional cough; no SOB. No pain. No nausea or vomiting. Physical Exam 2 Vital Signs (Past 24 Hours): Last Vital Signs Temp 36.5 C 04/14/18 19:26 Pulse 58 L 04/14/18 19:26 Resp 18 04/14/18 19: BP 160/74 H 04/14/18 19: Pulse Ox 94 04/14/18 19:26 Constitutional: no acute distress Respiratory: Auscultation: + rhonchi (few, scattered) Cardiovascular: Rate/Rhythm: regular rate and regular rhythm Extremities: + edema (trace pretibial) Gastrointestinal (Abdomen): Inspection/Auscultation: normal bowel sounds Percussion/Palpation: abdomen soft; abdomen nontender Neurologic: + focal motor deficit (right facial palsy, right hemiparesis) Speech / Cognition: + abnormal speech (dysarthric) Results & Data Laboratory Results Laboratory Results - last 24 hr 04/13/18 04/14/18 04/14/18 23:44 05:46 07:07 Sodium 134 L Potassium 4.2 Chloride 103 Carbon Dioxide 26 Anion Gap 5.0 BUN 36 H Creatinine 0.73 Est Cr Clr Drug Dosing 65.6 Est GFR ( Amer) 99.4 Est GFR (Non-Af Amer) 85.8 BUN/Creatinine Ratio 49.2 H Glucose 159 H POC Glucose 156 H 146 H Calcium 8.6 Phosphorus 2.8 Magnesium 1.9 Total Bilirubin AST 21 ALT 67 Alkaline Phosphatase Prealbumin Triglycerides 81 04/14/18 04/14/18 04/14/18 07:07 09:45 11:32 Sodium Potassium Cancelled Chloride Carbon Dioxide Anion Gap BUN Creatinine Est Cr Clr Drug Dosing Est GFR ( Amer) Est GFR (Non-Af Amer) BUN/Creatinine Ratio Glucose POC Glucose 159 H Calcium Phosphorus Magnesium Cancelled Total Bilirubin 0.7 AST Cancelled ALT Alkaline Phosphatase 100 Prealbumin 23.8 Triglycerides 04/14/18 18:14 Sodium Potassium Chloride Carbon Dioxide Anion Gap BUN Creatinine Est Cr Clr Drug Dosing Est GFR ( Amer) Est GFR (Non-Af Amer) BUN/Creatinine Ratio Glucose POC Glucose 140 H Calcium Phosphorus Magnesium Total Bilirubin AST ALT Alkaline Phosphatase Prealbumin Triglycerides
[2018-04-14] MEDS ORDERED: TPN/PPN CONSULT PHARMACY STA (21:51)
[2018-04-14] MEDS ORDERED: DEXTROSE 10% 1,000 ML IV SCH (22:00)
[2018-04-15] MEDS: DEXAMETHASONE SOD PHOSPHATE 6 MG in SYRINGE 0 ML IV SCH ×4 (01:23→18:21)
--- NOTE | 2018-04-15 07:50 | XRay Report ---
XR chest 1V portable CLINICAL HISTORY: (1) PICC placement, (2) cough dyspnea COMPARISON STUDY: 04/05/2017 FINDINGS: Interval development of left basilar atelectatic and infiltrative change. Trace left basila r pleural effusion. Placement of PICC catheter within the superior vena cava. No evidence for pneumot horax. IMPRESSION: 1. PICC catheter placed in the superior vena cava. 2. No evidence pneumothorax. 3. Interval left basilar atelectatic versus infiltrative-type change with a trace left pleural effusi on. The above report was generated using voice recognition software. It may contain grammatical, syntax or spelling errors. Electronically signed by: Maksim Sage M.D. 04/15/2018 7:49 AM
[2018-04-15] MEDS: PANTOprazole 40 MG in SYRINGE 0 ML IV SCH (08:25)
[2018-04-15] MEDS: NYSTATIN SUSP 500,000 U/5 ML UDC PO SCH ×4 (08:25→21:38)
[2018-04-15 08:54] LABS: BUN Creatinine Ratio 52.5 (10-20); Calcium 8.5 mg/dl (8.5-10.1); Creatinine Clr Calc Pharmacy 71.5 ml/min; Est GFR (African American) 101.8; Est GFR (Non-African American) 87.8; Phosphorus 3.1 mg/dl (2.5-4.9); Potassium 4.3 mmol/L (3.5-5.1)
--- NOTE | 2018-04-15 12:19 | Hospitalist Progress Note ---
Date of Service April 15, 2018 Assessment & Plan (1) Pontine lesion: Presented with progressive dysphagia and right-sided weakness. CT head 04/05/18 demonstrated ill-defined left pontine lesion. 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 Received IV dexamethasone. Medical Oncology and Radiation Oncology consulted. Stereotactic external beam radiation therapy recommended and initiated. Worsening right-sided weakness on 04/08. CT demonstrated hemorrhage associated with left pontine lesion. Last session of radiation therapy 04/14/18. Discussed steroid taper with Radiation Oncology. Continue current dose of dexamethasone for 7 more days after completion of XRT, then reduce dose by 50% on a weekly basis. Continue PT and OT. High aspiration risk- continue NPO status. Prognosis poor. Palliative Care consulted. (2) SCC (squamous cell carcinoma): Metastatic squamous cell carcinoma of skin. Not candidate for chemotherapy at this time due to poor functional status. 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 Seen by RUBBER DOWN. High aspiration risk. NPO status recommended. PEG discussed; patient does not wish to pursue. Currently receiving PPN. Discussed nutrition options / goals further with patient and his son today. PEG again discussed 04/14, patient declined. PICC placed for TPN. Patient will reconsider nutrition options once response to radiation therapy is determined (1 week after completion of XRT). (4) DVT prophylaxis: No anticoagulants due to pontine lesion with hemorrhage. SCD's. (5) Discharge planning issues: Anticipated need for skilled care or eventual hospice. Case Management consulted. Subjective Recheck for multiple problems. Patient seen in his room around 1210. Son visiting. No new problems. PICC placed yesterday. No headache. No fever. Occasional cough; no SOB. No pain. No nausea or vomiting. Physical Exam 2 Vital Signs (Past 24 Hours): Last Vital Signs Temp 36.6 C 04/15/18 11:19 Pulse 78 04/15/18 11:19 Resp 18 04/15/18 11:19 BP 135/83 04/15/18 11:19 Pulse Ox 93 04/15/18 11:19 Constitutional: no acute distress Respiratory: Auscultation: + rhonchi (few, scattered) Cardiovascular: Rate/Rhythm: regular rate and regular rhythm Extremities: + edema (trace pretibial) Gastrointestinal (Abdomen): Inspection/Auscultation: normal bowel sounds Percussion/Palpation: abdomen soft; abdomen nontender Musculoskeletal: Extremities: + upper extremity abnormal to inspection (PICC LUE) Neurologic: + focal motor deficit (right facial palsy, right hemiparesis) Speech / Cognition: + abnormal speech (dysarthric) Results & Data Laboratory Results Laboratory Results - last 24 hr 04/14/18 04/15/18 04/15/18 23:59 06:13 07:58 Sodium 133 L Potassium 4.3 Chloride 100 Carbon Dioxide 26 Anion Gap 7.0 BUN 36 H Creatinine 0.69 Est Cr Clr Drug Dosing 71.5 Est GFR ( Amer) 101.8 Est GFR (Non-Af Amer) 87.8 BUN/Creatinine Ratio 52.5 H Glucose 149 H POC Glucose 149 H 152 H Calcium 8.5 Phosphorus 3.1 Magnesium 2.0 AST 21 ALT 61 04/15/18 12:42 Sodium Potassium Chloride Carbon Dioxide Anion Gap BUN Creatinine Est Cr Clr Drug Dosing Est GFR ( Amer) Est GFR (Non-Af Amer) BUN/Creatinine Ratio Glucose POC Glucose 148 H Calcium Phosphorus Magnesium AST ALT
[2018-04-15] MEDS ORDERED: DEXTROSE 10% 1,000 ML IV SCH (13:00)
[2018-04-15] MEDS ORDERED: TPN/PPN CONSULT PHARMACY PRN (16:00)
[2018-04-15] MEDS ORDERED: CUSTOM CENTRAL PN IV SCH (16:00)
--- NOTE | 2018-04-15 17:41 | Palliative Care Progress Note ---
Date of Service April 15, 2018 Assessment & Plan (1) Palliative care encounter: Patient seen and examined , No family at bedside . 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 Patient presented to the emergency room on 04/05 with increasing right-sided weakness, increasing dysphasia and was found to have a 2.3 cm lesion of the left aspect of the ventral rachael. Patient completed 5/5 XRT sessions today. Patient was also on high-dose IV Decadron. 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 -Dysphasia-patient on PPN - Patient would prefer to be discharged to [facility]-is amenable to some rehab to improve strength and transfers -POLST form completed Will continue to follow to assist with medical decision making and provide support to patient's son (2) Hemiparesis of right dominant side: Dense right-sided hemiparesis-we will continue to monitor for any improvement s/p XRT (3) Dysphagia: -Patient is n.p.o., continue PPN. We will continue to monitor for any signs of improvement with XRT. -Continue Yankauer suction for oral secretions -PRN atropine caused thicker secretions which were difficult to clear-will DC (4) Metastatic squamous cell carcinoma: With new lesion in the ventral rachael-s/p palliative XRT Subjective Patient awake alert, no acute distress. Patient denies any discomfort, continues to use Yankauer for self suctioning of oral secretions. Review of Systems Patient denies fever, chills, chest pain, increased shortness of breath, or GI issues. Physical Exam 2 Vital Signs (Past 24 Hours): Last Vital Signs Temp 36.4 C L 04/15/18 15:56 Pulse 79 04/15/18 15:56 Resp 16 04/15/18 15:56 BP 137/78 04/15/18 15:56 Pulse Ox 90 04/15/18 15:56 Physical Exam: PE: No acute distress HEENT: Right-sided facial droop Respirations: Unlabored CV: Regular rate Abdomen: Soft, nontender Neuro: Continues to have dense right hemiparesis, patient is alert and oriented x4 Time Spent Attending Total time spent 35 minutes with greater than 50% of the time spent at bedside discussing patient's goals of care as well as assessing patient's physical comfort. _ (1) Hemiparesis of right dominant side Hemiparesis etiology: non-cerebrovascular etiology Cerebrovascular disease type: Qualified Code(s): G81.91 - Hemiplegia, unspecified affecting right dominant side (2) Dysphagia Dysphagia type: esophageal phase Qualified Code(s): R13.10 - Dysphagia, unspecified
[2018-04-15] MEDS: ACETAMINOPHEN 1000 MG/100 ML IV IV PRN (18:20)
[2018-04-15] MEDS: LORazepam 0.5 MG/1 ML VIAL IV SCH (21:38)
[2018-04-16] MEDS: DEXAMETHASONE SOD PHOSPHATE 6 MG in SYRINGE 0 ML IV SCH ×4 (00:21→19:36)
[2018-04-16 07:24] LABS: BUN Creatinine Ratio 49.3 (10-20); Creatinine Clr Calc Pharmacy 63.5 ml/min; Est GFR (African American) 97.3; Est GFR (Non-African American) 83.9; Magnesium 1.9 mg/dl (1.8-2.4); Potassium 4.2 mmol/L (3.5-5.1)
[2018-04-16] MEDS: NYSTATIN SUSP 500,000 U/5 ML UDC PO SCH ×3 (08:07→17:28)
[2018-04-16] MEDS: PANTOprazole 40 MG in SYRINGE 0 ML IV SCH (08:33)
--- NOTE | 2018-04-16 09:41 | Pharmacy Report ---
PHA: Glycemic Control AP - Date of Service April 16, 2018 - Assessment & Plan The patient is currently receiving 0 units of insulin per day. BSGs ranging 148 -191 mg/dl over the past 24hrs. * TPN dextrose increased yesterday to 175 grams, slight increase today to 200 gm , elevated BSGS 2 >180, will add 10 units of regular insulin to TPN bag * Continue to follow BSGs, novolog correction may need to be restarted in addition to insulin in tpn if BSGs not controlled Pharmacy will continue to monitor patient daily and write orders per [facility] inpatient glycemic control protocol. Thanks. * Please note that the plan above was derived based on current level of insulin resistance and hospital stress. These recommendations are appropriate for inpatient admission only. Plan of care upon discharge will need to be reassessed to avoid potential outpatient hypo/hyperglycemia.
[2018-04-16] MEDS ORDERED: CUSTOM CENTRAL PN IV SCH (16:00)
--- NOTE | 2018-04-16 19:02 | Hospitalist Progress Note ---
Date of Service April 16, 2018 Assessment & Plan (1) Pontine lesion: Presented with progressive dysphagia and right-sided weakness. CT head 04/05/18 demonstrated ill-defined left pontine lesion. 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 Received IV dexamethasone. Medical Oncology and Radiation Oncology consulted. Stereotactic external beam radiation therapy recommended and initiated. Worsening right-sided weakness on 04/08. CT demonstrated hemorrhage associated with left pontine lesion. Last session of radiation therapy 04/14/18. Discussed steroid taper with Radiation Oncology. Continue current dose of dexamethasone for 7 more days after completion of XRT ( until 04/20), then reduce dose by 50% on a weekly basis. Continue PT and OT. High aspiration risk- continue NPO status. Prognosis poor. Palliative Care consulted. (2) SCC (squamous cell carcinoma): Metastatic squamous cell carcinoma of skin. Not candidate for chemotherapy at this time due to poor functional status. 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 Seen by CHIROPRACTIC TEACHER. High aspiration risk. NPO status recommended. PEG discussed; patient does not wish to pursue. Currently receiving PPN. Discussed nutrition options / goals further with patient and his son today. PEG again discussed 04/14, patient declined. PICC placed for TPN. Patient will reconsider nutrition options once response to radiation therapy is determined (1 week after completion of XRT). (4) Difficulty clearing secretions: Try saline nebs. (5) DVT prophylaxis: No anticoagulants due to pontine lesion with hemorrhage. SCD's. (6) Discharge planning issues: Anticipated need for skilled care or eventual hospice. Case Management consulted. Subjective Recheck for multiple problems. Patient seen in his room around 1845. Son visiting. Had several visitors today. Was out of bed for about 2 [address] in chair. Main problem is ongoing difficulty with thick oral secretions. No headache. No fever. Occasional cough; no SOB. No pain. No nausea or vomiting. Physical Exam 2 Vital Signs (Past 24 Hours): Last Vital Signs Temp 36.8 C 04/16/18 15:28 Pulse 77 04/16/18 15:28 Resp 20 04/16/18 15:28 BP 142/80 H 04/16/18 15:28 Pulse Ox 96 04/16/18 15:28 Constitutional: no acute distress Respiratory: Auscultation: + rhonchi (few, scattered + transmitted upper airway sounds) Cardiovascular: Rate/Rhythm: regular rate and regular rhythm Extremities: + edema (trace pretibial) Gastrointestinal (Abdomen): Inspection/Auscultation: normal bowel sounds Percussion/Palpation: abdomen soft; abdomen nontender Musculoskeletal: Extremities: + upper extremity abnormal to inspection (PICC LUE) Neurologic: + focal motor deficit (right facial palsy, right hemiparesis) Speech / Cognition: + abnormal speech (dysarthric) Results & Data Laboratory Results Laboratory Results - last 24 hr 04/16/18 04/16/18 04/16/18 00:35 06:32 06:58 Sodium 136 Potassium 4.2 Chloride 104 Carbon Dioxide 27 Anion Gap 5.0 BUN 38 H Creatinine 0.77 Est Cr Clr Drug Dosing 63.5 Est GFR ( Amer) 97.3 Est GFR (Non-Af Amer) 83.9 BUN/Creatinine Ratio 49.3 H Glucose 191 H POC Glucose 181 H 173 H Calcium 8.0 L Phosphorus 2.0 L D Magnesium 1.9 AST 15 ALT 44 04/16/18 11:52 Sodium Potassium Chloride Carbon Dioxide Anion Gap BUN Creatinine Est Cr Clr Drug Dosing Est GFR ( Amer) Est GFR (Non-Af Amer) BUN/Creatinine Ratio Glucose POC Glucose 179 H Calcium Phosphorus Magnesium AST ALT
[2018-04-16] MEDS ORDERED: LEVALBUTEROL HCL 0.63 MG/3 ML NEB NEB ONE (20:20)
[2018-04-16] MEDS: SODIUM CHLOR 7% 4 ML NEB INH SCH (20:49)
[2018-04-16] MEDS: LORazepam 0.5 MG/1 ML VIAL IV SCH (22:43)
[2018-04-17] MEDS: DEXAMETHASONE SOD PHOSPHATE 6 MG in SYRINGE 0 ML IV SCH ×4 (00:17→19:00)
[2018-04-17] MEDS: LEVALBUTEROL HCL 0.63 MG/3 ML NEB NEB SCH ×4 (06:59→20:11)
[2018-04-17] MEDS: SODIUM CHLOR 7% 4 ML NEB INH SCH ×3 (06:59→20:11)
[2018-04-17 07:03] LABS: BUN Creatinine Ratio 54.3 (10-20); Calcium 8.2 mg/dl (8.5-10.1); Creatinine Clr Calc Pharmacy 66.9 ml/min; Est GFR (African American) 98.9; Est GFR (Non-African American) 85.3; Potassium 4.6 mmol/L (3.5-5.1)
[2018-04-17 07:07] LABS: Phosphorus 2.8 mg/dl (2.5-4.9)
[2018-04-17] MEDS: PANTOprazole 40 MG in SYRINGE 0 ML IV SCH (09:07)
[2018-04-17] MEDS ORDERED: PIPERACILL/TAZOBAC CONSULT ACTIVE PRN (09:52)
--- NOTE | 2018-04-17 09:55 | Hospitalist Progress Note ---
Date of Service April 17, 2018 Assessment & Plan (1) Pontine lesion: Presented with progressive dysphagia and right-sided weakness. CT head 04/05/18 demonstrated ill-defined left pontine lesion. 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 Received IV dexamethasone. Medical Oncology and Radiation Oncology consulted. Stereotactic external beam radiation therapy recommended and initiated. Worsening right-sided weakness on 04/08. CT demonstrated hemorrhage associated with left pontine lesion. Last session of radiation therapy 04/14/18. Discussed steroid taper with Radiation Oncology. Continue current dose of dexamethasone for 7 more days after completion of XRT ( until 04/20), then reduce dose by 50% on a weekly basis. Continue PT and OT. High aspiration risk- continue NPO status. Prognosis poor. Palliative Care consulted. (2) SCC (squamous cell carcinoma): Metastatic squamous cell carcinoma of skin. Not candidate for chemotherapy at this time due to poor functional status. 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 Seen by WOMEN SPECIALIST. High aspiration risk. NPO status recommended. PEG discussed; patient does not wish to pursue. Currently receiving PPN. Discussed nutrition options / goals further with patient and his son today. PEG again discussed 04/14, patient declined. PICC placed for TPN. Patient will reconsider nutrition options once response to radiation therapy is determined (1 week after completion of XRT). (4) Difficulty clearing secretions: Continue saline nebs. Possible sinusitis. Try course of antibiotics. (5) DVT prophylaxis: No anticoagulants due to pontine lesion with hemorrhage. SCD's. (6) Discharge planning issues: Anticipated need for skilled care or eventual hospice. Case Management consulted. Subjective Recheck for multiple problems. Patient seen in his room around 0900. Son visiting. Nebs seem to be helping with thick upper airway secretions. No headache. No fever. Occasional cough; no SOB. No pain. No nausea or vomiting. Physical Exam 2 Vital Signs (Past 24 Hours): Last Vital Signs Temp 36.4 C L 04/17/18 07:59 Pulse 60 04/17/18 07:59 Resp 20 04/17/18 07:59 BP 94/64 L 04/17/18 07:59 Pulse Ox 96 04/17/18 07:59 Constitutional: no acute distress Respiratory: Auscultation: + rhonchi (few, scattered + transmitted upper airway sounds) Cardiovascular: Rate/Rhythm: regular rate and regular rhythm Extremities: + edema (trace pretibial) Gastrointestinal (Abdomen): Inspection/Auscultation: normal bowel sounds Percussion/Palpation: abdomen soft; abdomen nontender Musculoskeletal: Extremities: + upper extremity abnormal to inspection (PICC LUE) Neurologic: + focal motor deficit (right facial palsy, right hemiparesis, minimal flexion right knee) Speech / Cognition: + abnormal speech (dysarthric ) Results & Data Laboratory Results Laboratory Results - last 24 hr 04/16/18 04/17/18 04/17/18 19:02 00:02 05:54 Sodium Potassium Chloride Carbon Dioxide Anion Gap BUN Creatinine Est Cr Clr Drug Dosing Est GFR ( Amer) Est GFR (Non-Af Amer) BUN/Creatinine Ratio Glucose POC Glucose 179 H 173 H 212 H Calcium Phosphorus Magnesium AST ALT 04/17/18 04/17/18 06:06 12:32 Sodium 139 Potassium 4.6 Chloride 105 Carbon Dioxide 27 Anion Gap 7.0 BUN 40 H Creatinine 0.74 Est Cr Clr Drug Dosing 66.9 Est GFR ( Amer) 98.9 Est GFR (Non-Af Amer) 85.3 BUN/Creatinine Ratio 54.3 H Glucose 222 H POC Glucose 201 H Calcium 8.2 L Phosphorus 2.8 Magnesium 2.0 AST 18 ALT 53
[2018-04-17] MEDS ORDERED: SODIUM CHLORIDE 0.65% NA SOLN 45 ML (OCEAN) ONE (10:05)
--- NOTE | 2018-04-17 10:50 | Pharmacy Report ---
PHA: Parenteral Nutrition Con - Date of Service April 17, 2018 - Scope Pharmacy was consulted on 04/07 to manage parenteral nutrition orders for this patient. - Subjective The patient is currently on day 11 of central parenteral nutrition for prolonged NPO status. - Objective Height: 5 ft 6 in Weight: 62.5 kg Diet: NPO Intake & Output (24hrs):: Intake & Output 04/15/18 04/16/18 04/17/18 04/18/18 06:59 06:59 06:59 06:59 Intake Total 0 / 0 0 / 0 Output Total 676 / 676 925 / 925 650 / 650 Balance -676 / -676 -925 / -925 -650 / -650 Weight 62.3 kg 61.8 kg 62.5 kg Laboratory Data (Last 24 Hr):: 04/17/18 06:06 Sodium 139 Potassium 4.6 Chloride 105 Carbon Dioxide 27 BUN 40 H Creatinine 0.74 Glucose 222 H Calcium 8.2 L Phosphorus 2.8 Magnesium 2.0 AST 18 ALT 53 Nutrition Assessment:: Please refer to the Notes section of the EMR for the most recent security system installer note. - Assessment F: TPN @ 60 ml/hr (minimum volume 1447 mL over 24 hours) E: K trending up 4.2 to 4.6 today- will reduce today; Na trending up as well 139 today- reduce slightly; phos improved to 2.8; mg WNL N: NPO continues; BSGs elevated with increase in dextrose 212 this AM- will keep same amount of dextrose today until stabilized, increase insulin in tpn Patient also started on zosyn. Added correctional novolog scale for elevated BSGs- CF 20. Dexamethasone to continue at current dose until 04/20 and then be reduced by 50% weekly. - Plan For day 11 of PN administration, the following will be ordered: Macronutrients Amino acids 95 grams/day Dextrose 200 grams/day Lipids 25 grams/day Micronutrients Sodium phosphate 36 MMol- increase Sodium chloride 100 mEq- reduced Potassium acetate 20 mEq Magnesium sulfate 4.06 mEq Calcium gluconate 4.65 mEq Multivitamins 10 mL Trace Elements 1 mL Additional additives: Regular insulin 20 units (increase) (0.1 units/gram of dextrose) Total volume 1447 mL to be infused over 24 hrs will provide 1310 kcal/day Labs, as indicated, will be ordered per protocol Pharmacy will continue to follow and adjust parenteral nutrition orders on a daily basis. Thank you for allowing us to participate in the care of this patient.
[2018-04-17] MEDS ORDERED: PIPERACILLIN/TAZOBACTAM 3.375 GM in DEXTROSE 5% 100 ML IV ONE (11:00)
[2018-04-17] MEDS: INSULIN ASPART 100 UNITS/ML 3 ML PEN SC SCH ×2 (13:12→18:58)
[2018-04-17] MEDS: SODIUM CHLORIDE 0.65% NA SOLN 45 ML (OCEAN) SCH ×3 (13:14→22:11)
[2018-04-17] MEDS ORDERED: CUSTOM CENTRAL PN IV SCH (16:00)
[2018-04-17] MEDS: PIPERACILLIN/TAZOBACTAM 3.375 GM in DEXTROSE 5% 100 ML IV SCH (16:14)
[2018-04-17] MEDS: LORazepam 0.5 MG/1 ML VIAL IV SCH (22:11)
[2018-04-18] MEDS: DEXAMETHASONE SOD PHOSPHATE 6 MG in SYRINGE 0 ML IV SCH ×4 (00:02→18:28)
[2018-04-18] MEDS: INSULIN ASPART 100 UNITS/ML 3 ML PEN SC SCH ×4 (00:03→18:25)
[2018-04-18] MEDS: PIPERACILLIN/TAZOBACTAM 3.375 GM in DEXTROSE 5% 100 ML IV SCH ×3 (00:06→15:43)
[2018-04-18] MEDS: SODIUM CHLOR 7% 4 ML NEB INH SCH ×5 (07:22→22:25)
[2018-04-18] MEDS: LEVALBUTEROL HCL 0.63 MG/3 ML NEB NEB SCH ×4 (07:22→20:29)
[2018-04-18 07:56] LABS: BUN Creatinine Ratio 53.5 (10-20); Calcium 8.2 mg/dl (8.5-10.1); Creatinine Clr Calc Pharmacy 62.6 ml/min; Est GFR (African American) 96.2; Potassium 4.1 mmol/L (3.5-5.1)
[2018-04-18 07:57] LABS: Phosphorus 2.5 mg/dl (2.5-4.9)
[2018-04-18] MEDS: SODIUM CHLORIDE 0.65% NA SOLN 45 ML (OCEAN) SCH ×4 (08:08→23:22)
[2018-04-18] MEDS: PANTOprazole 40 MG in SYRINGE 0 ML IV SCH (08:08)
--- NOTE | 2018-04-18 10:38 | Pharmacy Report ---
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 His PPN was converted to TPN on . Since then, BSGs have been trending upward: * 04/15: 175 g of dextrose in TPN -> BSGs near goal * 04/16: 200 g of dextrose in TPN + 10 units regular insulin > BSGs trending upward * 04/17: 200 g of dextrose in TPN + 20 units of regular insulin -> all BSGs > 200 mg/dL * 04/18: will decrease dextrose back to 150 g and add 22 units of regular insulin (equivalent to carb ratio of 7) PLAN FOR INPATIENT GLYCEMIC CONTROL: * Basal insulin * none * Bolus insulin - increase * NovoLog per scale ACHS or Q6hrs while NPO * Goal Range: Low 140 mg/dL - High 180 mg/dL * Tighten Correction Factor: 18 mg/dL/unit * Tighten Carb coverage (provided by regular insulin in TPN): 22 units
[2018-04-18] MEDS ORDERED: CUSTOM CENTRAL PN IV SCH (16:00)
--- NOTE | 2018-04-18 18:25 | Hospitalist Progress Note ---
Date of Service April 18, 2018 Assessment & Plan (1) Pontine lesion: Presented with progressive dysphagia and right-sided weakness. CT head 04/05/18 demonstrated ill-defined left pontine lesion. 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 Received IV dexamethasone. Medical Oncology and Radiation Oncology consulted. Stereotactic external beam radiation therapy recommended and initiated. Worsening right-sided weakness on 04/08. CT demonstrated hemorrhage associated with left pontine lesion. Last session of radiation therapy 04/14/18. Discussed steroid taper with Radiation Oncology. Continue current dose of dexamethasone for 7 more days after completion of XRT ( until 04/20), then reduce dose by 50% on a weekly basis. Continue PT and OT. High aspiration risk- continue NPO status. Prognosis poor. Palliative Care consulted. (2) SCC (squamous cell carcinoma): Metastatic squamous cell carcinoma of skin. Not candidate for chemotherapy at this time due to poor functional status. 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 Severe protein-calorie malnutrition with significant weight loss prior to admission. Seen by FENCE INSTALLER. High aspiration risk. NPO status recommended. PEG discussed; patient does not wish to pursue. PPN initiated. Discussed nutrition options / goals further with patient and his son. PEG again discussed 04/14, patient declined. PICC placed for TPN. Patient will reconsider nutrition options once response to radiation therapy is determined (1 week after completion of XRT = 04/20). (4) Difficulty clearing secretions: Continue saline nebs. Possible sinusitis. Try course of antibiotics. (5) DVT prophylaxis: No anticoagulants due to pontine lesion with hemorrhage. SCD's. (6) Discharge planning issues: Anticipated need for skilled care or eventual hospice. Case Management consulted. Subjective Recheck for multiple problems. Patient seen in his room around 1110. Son visiting. Upper airway secretions better. No headache. No fever. Occasional cough; no SOB. No pain. No nausea or vomiting. Physical Exam 2 Vital Signs (Past 24 Hours): Last Vital Signs Temp 36.4 C L 04/18/18 15:34 Pulse 74 04/18/18 16:02 Resp 16 04/18/18 16:02 BP 132/71 04/18/18 15:34 Pulse Ox 96 04/18/18 16:02 Constitutional: no acute distress Respiratory: Auscultation: + rhonchi (few, scattered + transmitted upper airway sounds) Cardiovascular: Rate/Rhythm: regular rate and regular rhythm Extremities: + edema (trace pretibial) Gastrointestinal (Abdomen): Inspection/Auscultation: normal bowel sounds Percussion/Palpation: abdomen soft; abdomen nontender Musculoskeletal: Extremities: + upper extremity abnormal to inspection (PICC LUE) Neurologic: + focal motor deficit (right facial palsy, right hemiparesis) Speech / Cognition: + abnormal speech (dysarthric) Results & Data Laboratory Results Laboratory Results - last 24 hr 04/18/18 04/18/18 04/18/18 00:02 05:57 06:40 Sodium 141 Potassium 4.1 Chloride 106 Carbon Dioxide 29 Anion Gap 6.0 BUN 42 H Creatinine 0.79 Est Cr Clr Drug Dosing 62.6 Est GFR ( Amer) 96.2 Est GFR (Non-Af Amer) 83.0 BUN/Creatinine Ratio 53.5 H Glucose 239 H POC Glucose 208 H 218 H Calcium 8.2 L Phosphorus 2.5 Magnesium 2.0 04/18/18 04/18/18 04/18/18 11:38 18:13 21:17 Sodium Potassium Chloride Carbon Dioxide Anion Gap BUN Creatinine Est Cr Clr Drug Dosing Est GFR ( Amer) Est GFR (Non-Af Amer) BUN/Creatinine Ratio Glucose POC Glucose 201 H 221 H 222 H Calcium Phosphorus Magnesium
[2018-04-18] MEDS ORDERED: LANTUS PER UNIT CHARGE SQ SCH (21:00)
[2018-04-18] MEDS: LORazepam 0.5 MG/1 ML VIAL IV SCH ×2 (22:19→22:28)
[2018-04-19] MEDS: DEXAMETHASONE SOD PHOSPHATE 6 MG in SYRINGE 0 ML IV SCH ×4 (00:49→18:06)
[2018-04-19] MEDS: PIPERACILLIN/TAZOBACTAM 3.375 GM in DEXTROSE 5% 100 ML IV SCH ×3 (00:49→16:15)
[2018-04-19] MEDS: INSULIN ASPART 100 UNITS/ML 3 ML PEN SC SCH ×4 (00:53→18:13)
[2018-04-19] MEDS: LEVALBUTEROL HCL 0.63 MG/3 ML NEB NEB SCH ×4 (07:16→19:45)
[2018-04-19] MEDS: SODIUM CHLOR 7% 4 ML NEB INH SCH ×4 (07:16→15:45)
[2018-04-19 07:52] LABS: BUN Creatinine Ratio 60.9 (10-20); Calcium 8.2 mg/dl (8.5-10.1); Creatinine Clr Calc Pharmacy 61.8 ml/min; Est GFR (African American) 96.2; Magnesium 1.8 mg/dl (1.8-2.4); Potassium 4.2 mmol/L (3.5-5.1)
[2018-04-19 07:54] LABS: Phosphorus 2.8 mg/dl (2.5-4.9)
[2018-04-19] MEDS: PANTOprazole 40 MG in SYRINGE 0 ML IV SCH (08:09)
[2018-04-19] MEDS: SODIUM CHLORIDE 0.65% NA SOLN 45 ML (OCEAN) SCH ×4 (08:16→21:09)
--- NOTE | 2018-04-19 14:28 | Pharmacy Report ---
Pharmacy Glycemic Short Note 2 - Date of Service April 19, 2018 - Glycemic Short BSG Results (Last 24 hours): 04/18/18 04/18/18 04/19/18 18:13 21:17 00:52 Glucose POC Glucose 221 H 222 H 195 H 04/19/18 04/19/18 04/19/18 06:14 07:08 11:47 Glucose 201 H POC Glucose 213 H 189 H OUTPATIENT ANTIDIABETIC REGIMEN: * none - no h/o DM ASSESSMENT: 04/19/18 * Mr. Lujan remains on TPN (with 22 units of insulin in the bag) as well as Decadron 6 mg IV q6h * BSGs are slightly improved but patient still received 36 units of insulin yesterday * With regards to TPN, the same amt of dextrose will be provided in today's bag but insulin will be increased slightly. If patient requires additional Lantus again tonight, can add this to tomorrow's TPN. 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 His PPN was converted to TPN on . Since then, BSGs have been trending upward: * 04/15: 175 g of dextrose in TPN -> BSGs near goal * 04/16: 200 g of dextrose in TPN + 10 units regular insulin > BSGs trending upward * 04/17: 200 g of dextrose in TPN + 20 units of regular insulin -> all BSGs > 200 mg/dL * 04/18: will decrease dextrose back to 150 g and add 22 units of regular insulin (equivalent to carb ratio of 7) PLAN FOR INPATIENT GLYCEMIC CONTROL: * Basal insulin - continue same dose from last night * Lantus qHS per the following scale: * Hold if BSG 200 or less * 6 units for BSG > 200 * Bolus insulin - tighten goal range * NovoLog per scale ACHS or Q6hrs while NPO * Goal Range: Low 120 mg/dL - High 160 mg/dL * Tighten Correction Factor: 18 mg/dL/unit * Tighten Carb coverage (provided by regular insulin in TPN): 25 units
[2018-04-19] MEDS ORDERED: CUSTOM CENTRAL PN IV SCH (16:00)
--- NOTE | 2018-04-19 16:32 | Hematology/Oncology Prog Note ---
"Date of Service April 19, 2018 Assessment & Plan (1) Right sided weakness: * Patient with a left sided pontine lesion, 2 cm, with vasogenic edema * Patient on dexamethasone 6mg q6h * Patient remains on PPN * Radiation Oncology has also been consulted- #5/5, tomorrow will be 7 days since completion * Patient has poor overall prognosis, patient has not had significant neurologic improvement- reportedly he was able to remove RLE today, unable to move RUE per report and remain on PPN, NPO * Continues to have aspirate his secretions as cannot swallow * Patient would be benefit from palliative care, with PS 4 Med Onc would not consider for palliative systemic treatment unless significant recovery of PS (2) Metastatic squamous cell carcinoma: * Diagnosed with SCC of scalp with resection in Jan 2017 and underwent radiation by Dr. Myrick in April 2017. Developed pleuritic chest pain in Jan 2018 and metastatic SCC was found on RLL, which was resected by Dr. Carroll on Mar 17 2018 * Dr. Reeder met this patient for the 1st time on 03/29/2018 and recommended foundation 1 testing to include PD L1 diff decide about systemic treatment- but the results of this would be noncontributory as looks like patient to go on palliative care Dr. Washington is the covering medical oncologist. Subjective Patient was rounded on at bedside. He was sleeping during the visit. His son and nieces were at bedside. Reportedly, patient had swallowing test today that did not reveal esophageal motility return. He moved his right leg reportedly today with the hospitalist exam. He continues to require suction, on PPN. Physical Exam Vital Signs (Past 24 Hours): Last Vital Signs Temp 36.4 C L 04/19/18 15:45 Pulse 75 04/19/18 15:45 Resp 18 04/19/18 15:45 BP 122/77 04/19/18 15:45 Pulse Ox 93 04/19/18 15:45 Constitutional: + ill appearing (chronically) and + disheveled Results & Data Laboratory Results 04/19/18: Na | 142 | | 136-145 mmol/L | K | 4.2 | | 3.5-5.1 mmol/L | Cl | 107 | | 98-107 mmol/L | CO2 | 30 | | 21-32 mmol/L | Gap | 6.0 | | 3-11 | BUN | 48 | H | 7-18 mg/dl | Creat | 0.79 | | 0.6-1.4 mg/dl | Creat Calc PHA | 61.8 | | ml/min | | Est. Creatinine Clearance (Mod Cockcroft-Gault) for pharmacy | dosing purposes. EGFR AA | 96.2 | | | | Units: ml/min per 1.73 meters squared | | The estimated GFR (CKD-EPI equation) has not been validated | for inpatient settings and may not be an accurate reflection | of renal function in critically ill patients or those with | rapidly changing renal function (e.g. JUSTO). EGFR ANEL | 83.0 | | | | Units: ml/min per 1.73 meters squared | | The estimated GFR (CKD-EPI equation) has not been validated | for inpatient settings and may not be an accurate reflection | of renal function in critically ill patients or those with | rapidly changing renal function (e.g. JUSTO). BUN Creat Ratio | 60.9 | H | 10-20 | Glu | 201 | H | 70-99 mg/dl | Ca | 8.2 | L | 8.5-10.1 mg/dl | Phos | 2.8 | | 2.5-4.9 mg/dl | MG | 1.8 | | 1.8-2.4 mg/dl |"
--- NOTE | 2018-04-19 17:23 | Palliative Care Progress Note ---
Date of Service April 19, 2018 Assessment & Plan (1) Palliative care encounter: Patient seen and examined , patient's son at bedside . 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 Patient presented to the emergency room on 04/05 with increasing right-sided weakness, increasing dysphasia and was found to have a 2.3 cm lesion of the left aspect of the ventral rachael. Patient completed 5/5 XRT sessions. Patient with slight improvement in dysarthria, patient able to move the right lower extremity slightly on exam today. 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 -Dysphasia-patient on PPN - Patient would prefer to be discharged to [facility]-is amenable to some rehab to improve strength and transfers -Discussed at length with both patient and son the option of feeding tube to provide nutritional support if patient wants to pursue rehab at [facility] - patient and son to discuss-most likely will have decision tomorrow -POLST form completed Will continue to follow to assist with medical decision making and provide support to patient's son (2) Hemiparesis of right dominant side: Dense right-sided hemiparesis-slightly improved dysarthria, able to move right lower extremity slightly on exam (3) Dysphagia: -Patient is n.p.o., continue PPN. -Continue Yankauer suction for oral secretions -PRN atropine caused thicker secretions which were difficult to clear-will DC (4) Metastatic squamous cell carcinoma: With new lesion in the ventral rachael-s/p palliative XRT Subjective Patient seen and examined, patient's son at bedside. Collaborated with Michelle Farr PA-C from oncology. Patient's speech is slightly improved, son reports patient was able to move his right lower extremity slightly today. Review of Systems Patient denies fever, chills, chest pain, increased shortness of breath, or abdominal pain. Patient does report the sensation of hunger. Physical Exam 2 Vital Signs (Past 24 Hours): Last Vital Signs Temp 36.4 C L 04/19/18 15:45 Pulse 75 04/19/18 15:45 Resp 18 04/19/18 15:45 BP 122/77 04/19/18 15:45 Pulse Ox 93 04/19/18 15:45 Physical Exam: PE: Patient fatigued HEENT: Normal hearing CV: Regular rate, positive edema Abdomen: Not distended Neuro: Dysarthria-slightly improved, dysphasia Time Spent Attending Total time spent 35 minutes with greater than 50% of the time spent at bedside discussing treatment options as well as goals of care. Will continue to follow and assist with medical decision making. _ (1) Hemiparesis of right dominant side Hemiparesis etiology: non-cerebrovascular etiology Cerebrovascular disease type: Qualified Code(s): G81.91 - Hemiplegia, unspecified affecting right dominant side (2) Dysphagia Dysphagia type: esophageal phase Qualified Code(s): R13.10 - Dysphagia, unspecified
--- NOTE | 2018-04-19 20:15 | Hospitalist Progress Note ---
Date of Service April 19, 2018 Assessment & Plan (1) Pontine lesion: Presented with progressive dysphagia and right-sided weakness. CT head 04/05/18 demonstrated ill-defined left pontine lesion. 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 Received IV dexamethasone. Medical Oncology and Radiation Oncology consulted. Stereotactic external beam radiation therapy recommended and initiated. Worsening right-sided weakness on 04/08. CT demonstrated hemorrhage associated with left pontine lesion. Last session of radiation therapy 04/14/18. Discussed steroid taper with Radiation Oncology. Continue current dose of dexamethasone for 7 more days after completion of XRT ( until 04/20), then reduce dose by 50% on a weekly basis. Continue PT and OT. High aspiration risk- continue NPO status. Prognosis poor. Palliative Care consulted. (2) SCC (squamous cell carcinoma): Metastatic squamous cell carcinoma of skin. Not candidate for chemotherapy at this time due to poor functional status. 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 Severe protein-calorie malnutrition with significant weight loss prior to admission. Seen by RELOCATION ASSOCIATE. High aspiration risk. NPO status recommended. PEG discussed; patient does not wish to pursue. PPN initiated. Discussed nutrition options / goals further with patient and his son. PEG again discussed 04/14, patient declined. PICC placed for TPN. Patient will reconsider nutrition options once response to radiation therapy is determined (1 week after completion of XRT = 04/20). (4) Difficulty clearing secretions: Continue saline nebs. Possible sinusitis. Trying course of antibiotics. (5) DVT prophylaxis: No anticoagulants due to pontine lesion with hemorrhage. SCD's. (6) Discharge planning issues: Anticipated need for skilled care or eventual hospice. Case Management consulted. Subjective Recheck for multiple problems. Patient seen in his room around 0940. Son visiting. Tired. No headache. No fever. Upper airway secretions somewhat better. Occasional cough; no SOB. No pain. No nausea or vomiting. Physical Exam 2 Vital Signs (Past 24 Hours): Last Vital Signs Temp 36.6 C 04/19/18 19:49 Pulse 69 04/19/18 19:49 Resp 20 04/19/18 19:49 BP 152/77 H 04/19/18 19:49 Pulse Ox 94 02/19/19 19:49 Constitutional: no acute distress Respiratory: Auscultation: + rhonchi (few, scattered + transmitted upper airway sounds) Cardiovascular: Rate/Rhythm: regular rate and regular rhythm Extremities: + edema (trace pretibial) Gastrointestinal (Abdomen): Inspection/Auscultation: normal bowel sounds Percussion/Palpation: abdomen soft; abdomen nontender Musculoskeletal: Extremities: + upper extremity abnormal to inspection (PICC LUE) Neurologic: + focal motor deficit (right facial palsy, right hemiparesis with some flexion and extension of right knee) Speech / Cognition: + abnormal speech (dysarthric)
[2018-04-19] MEDS ORDERED: LANTUS PER UNIT CHARGE SQ SCH (21:00)
[2018-04-19] MEDS: LORazepam 0.5 MG/1 ML VIAL IV SCH (21:08)
[2018-04-20] MEDS: PIPERACILLIN/TAZOBACTAM 3.375 GM in DEXTROSE 5% 100 ML IV SCH ×3 (00:51→16:32)
[2018-04-20] MEDS: INSULIN ASPART 100 UNITS/ML 3 ML PEN SC SCH ×4 (00:52→18:34)
[2018-04-20] MEDS: DEXAMETHASONE SOD PHOSPHATE 6 MG in SYRINGE 0 ML IV SCH ×4 (00:52→18:31)
[2018-04-20] MEDS: SODIUM CHLOR 7% 4 ML NEB INH SCH ×5 (07:09→19:39)
[2018-04-20] MEDS: LEVALBUTEROL HCL 0.63 MG/3 ML NEB NEB SCH ×4 (07:30→19:39)
[2018-04-20 07:43] LABS: BUN Creatinine Ratio 63.9 (10-20); Calcium 8.2 mg/dl (8.5-10.1); Creatinine Clr Calc Pharmacy 66.5 ml/min; Est GFR (African American) 98.9; Est GFR (Non-African American) 85.3; Magnesium 1.8 mg/dl (1.8-2.4); Potassium 4.1 mmol/L (3.5-5.1)
[2018-04-20] MEDS: PANTOprazole 40 MG in SYRINGE 0 ML IV SCH (07:59)
[2018-04-20] MEDS: SODIUM CHLORIDE 0.65% NA SOLN 45 ML (OCEAN) SCH ×4 (08:00→21:27)
--- NOTE | 2018-04-20 11:38 | Pharmacy Report ---
Pharmacy Glycemic Short Note 2 - Date of Service April 20, 2018 - Glycemic Short BSG Results (Last 24 hours): 04/19/18 04/19/18 04/20/18 11:47 18:12 00:10 Glucose POC Glucose 189 H 167 H 184 H 04/20/18 04/20/18 06:14 06:22 Glucose 191 H POC Glucose 185 H OUTPATIENT ANTIDIABETIC REGIMEN: * none - no h/o DM ASSESSMENT: 04/20/18 * Mr. Lujan received 27 units of insulin from 04/18 PM to 04/19 PM * He remains on TPN w/ 175 gm dextrose (25 units of insulin in the bag) and Decadron 6 mg IV q6h * BSGs are better controlled w/ most being just above goal range. I'm estimating current daily insulin requirements to be ~30 units. * Plans are for Decadron dose to be decreased by 50% after today, so insulin requirements will decrease. I'm hesitant to cut insulin in half due to the prolonged duration of action of Decadron. Will plan to decrease by ~1/3, providing this in the TPN. 04/19/18 * Mr. Lujan remains on TPN (with 22 units of insulin in the bag) as well as Decadron 6 mg IV q6h * BSGs are slightly improved but patient still received 36 units of insulin yesterday * With regards to TPN, the same amt of dextrose will be provided in today's bag but insulin will be increased slightly. If patient requires additional Lantus again tonight, can add this to tomorrow's TPN. 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 His PPN was converted to TPN on . Since then, BSGs have been trending upward: * 04/15: 175 g of dextrose in TPN -> BSGs near goal * 04/16: 200 g of dextrose in TPN + 10 units regular insulin > BSGs trending upward * 04/17: 200 g of dextrose in TPN + 20 units of regular insulin -> all BSGs > 200 mg/dL * 04/18: will decrease dextrose back to 150 g and add 22 units of regular insulin (equivalent to carb ratio of 7) PLAN FOR INPATIENT GLYCEMIC CONTROL: * Basal insulin - ON HOLD * Lantus qHS per the following scale: * Hold if BSG 200 or less * 6 units for BSG > 200 * Bolus insulin - decrease amount in TPN * NovoLog per scale ACHS or Q6hrs while NPO * Goal Range: Low 120 mg/dL - High 160 mg/dL * Correction Factor: 18 mg/dL/unit * Prandial insulin: decrease to 20 units in TPN
--- NOTE | 2018-04-20 15:24 | Progress Note ---
DATE: 04/20/2018 Mr. Lujan was seen today. I believe his dysarthria and has weakness in his right arm and leg are worse than I noted 2 days ago. I am really having a hard time understanding him. This poor man's prognosis is terrible. I have been talking to his son for the last few weeks. I think supportive care and hospice is going to be the option they choose.
[2018-04-20] MEDS ORDERED: CUSTOM CENTRAL PN IV SCH (16:00)
--- NOTE | 2018-04-20 19:51 | Hospitalist Progress Note ---
Date of Service April 20, 2018 Assessment & Plan (1) Pontine lesion: Progressive worsening of symptoms with dysarthria dysphagia right hemiparesis No change or improvement of symptoms after completion of palliative radiation treatment Referral made to [facility] for rehab, given severe deconditioning per PT OT patient is not a candidate for skilled placement [facility] will not be able to accept patient with continued TPN Discussed with palliative care ed case manager, patient's son Plan for family meetingTomorrow to discuss goal of care Presented with progressive dysphagia and right-sided weakness. CT head 04/05/18 demonstrated ill-defined left pontine lesion. 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 Received IV dexamethasone. Medical Oncology and Radiation Oncology consulted. Stereotactic external beam radiation therapy recommended and initiated. Worsening right-sided weakness on 04/08. CT demonstrated hemorrhage associated with left pontine lesion. Last session of radiation therapy 04/14/18. Discussed steroid taper with Radiation Oncology. Continue current dose of dexamethasone for 7 more days after completion of XRT ( until 04/20), then reduce dose by 50% on a weekly basis. Continue PT and OT. High aspiration risk- continue NPO status. Prognosis poor. Palliative Care consulted. (2) SCC (squamous cell carcinoma): Metastatic squamous cell carcinoma of skin. Not candidate for chemotherapy at this time due to poor functional status. 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 Severe protein-calorie malnutrition with significant weight loss prior to admission. 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 Possible sinusitis. Trying course of antibiotics. (5) DVT prophylaxis: No anticoagulants due to pontine lesion with hemorrhage. SCD's. (6) Discharge planning issues: Difficult transition/discharge planning: Patient is unable to tolerate p.o. secondary to severe been brain stimulation, dysphasia With very poor prognosis palliative/comfort feeding with pure/soft diet-Will be appropriate Continuation of TPN for long-term is not practical, will not be covered by insurance on transition of care Feeding tube can have worsening of outcome: Pain, non-healing at site, infection , significant aspiration Patient is not eligible for skilled rehab secondary to Rapid decline In status, immobility complete assist Need to address Nutrition prior to transition to hospice facility Subjective Very tired, lethargic Has dense right-sided hemiparesis, Marked right eyelid drooping worsening of dysarthria, dysphasia Physical Exam 2 Vital Signs (Past 24 Hours): Last Vital Signs Temp 36.3 C L 04/20/18 18:00 Pulse 66 04/20/18 19:40 Resp 18 04/20/18 19:40 BP 145/75 H 04/20/18 18:00 Pulse Ox 95 04/20/18 19:40 Constitutional: + ill appearing, + altered mental status (very lethergic , worsening of dysarthria , ), + physical limitations and + lethargic Eyes: + eyelid abnormality (marked rt eyelid droop ) ENMT: thick oral secretion requiring frequent suction Respiratory: no respiratory distress Cardiovascular: RRR, no murmur, no edema Rate/Rhythm: regular rate and regular rhythm Gastrointestinal (Abdomen): Inspection/Auscultation: normal bowel sounds; no abdominal edema Percussion/Palpation: abdomen soft; abdomen nontender Neurologic: + confused (episodes of confusion noted , pt is aware of the symptom and tries to correct ) Speech / Cognition: + abnormal speech ( dysarthric ) and + expressive aphasia (rt hemiparesis )
[2018-04-20] MEDS: LORazepam 0.5 MG/1 ML VIAL IV SCH (21:32)
[2018-04-21] MEDS: PIPERACILLIN/TAZOBACTAM 3.375 GM in DEXTROSE 5% 100 ML IV SCH ×3 (00:09→16:10)
[2018-04-21] MEDS: DEXAMETHASONE SOD PHOSPHATE 6 MG in SYRINGE 0 ML IV SCH ×4 (00:10→21:21)
[2018-04-21] MEDS: INSULIN ASPART 100 UNITS/ML 3 ML PEN SC SCH ×4 (00:15→18:24)
[2018-04-21 07:00] LABS: Bilirubin,Total 0.7 mg/dl (0.2-1)
[2018-04-21] MEDS: LEVALBUTEROL HCL 0.63 MG/3 ML NEB NEB SCH ×4 (07:09→19:28)
[2018-04-21] MEDS: SODIUM CHLOR 7% 4 ML NEB INH SCH ×4 (07:09→19:28)
[2018-04-21] MEDS: SODIUM CHLORIDE 0.65% NA SOLN 45 ML (OCEAN) SCH ×4 (08:15→21:21)
[2018-04-21] MEDS: PANTOprazole 40 MG in SYRINGE 0 ML IV SCH (08:16)
--- NOTE | 2018-04-21 09:21 | Pharmacy Report ---
Pharmacy Glycemic Short Note 2 - Date of Service April 21, 2018 - Glycemic Short BSG Results (Last 24 hours): 04/20/18 04/20/18 04/20/18 11:42 16:37 20:08 POC Glucose 187 H 199 H 192 H 04/20/18 04/21/18 23:58 05:43 POC Glucose 196 H 201 H OUTPATIENT ANTIDIABETIC REGIMEN: * none - no h/o DM ASSESSMENT: 04/21/18 * Mr. Lujan received a total of 34 units of insulin from 04/19 PM to 04/20 PM, with 20 units of insulin in his TPN * BSGs have increased slightly due to the fact that insulin was decreased in the TPN but Decadron was not changed. * Decadron now decreased to q12h so will keep insulin the same in TPN for today (dextrose to also remain the same) * Will use short-acting SQ insulin to provide additional correction if necessary until BSGs improve 04/20/18 * Mr. Lujan received 27 units of insulin from 04/18 PM to 04/19 PM * He remains on TPN w/ 175 gm dextrose (25 units of insulin in the bag) and Decadron 6 mg IV q6h * BSGs are better controlled w/ most being just above goal range. I'm estimating current daily insulin requirements to be ~30 units. * Plans are for Decadron dose to be decreased by 50% after today, so insulin requirements will decrease. I'm hesitant to cut insulin in half due to the prolonged duration of action of Decadron. Will plan to decrease by ~1/3, providing this in the TPN. 04/19/18 * Mr. Lujan remains on TPN (with 22 units of insulin in the bag) as well as Decadron 6 mg IV q6h * BSGs are slightly improved but patient still received 36 units of insulin yesterday * With regards to TPN, the same amt of dextrose will be provided in today's bag but insulin will be increased slightly. If patient requires additional Lantus again tonight, can add this to tomorrow's TPN. 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 His PPN was converted to TPN on . Since then, BSGs have been trending upward: * 04/15: 175 g of dextrose in TPN -> BSGs near goal * 04/16: 200 g of dextrose in TPN + 10 units regular insulin > BSGs trending upward * 04/17: 200 g of dextrose in TPN + 20 units of regular insulin -> all BSGs > 200 mg/dL * 04/18: will decrease dextrose back to 150 g and add 22 units of regular insulin (equivalent to carb ratio of 7) PLAN FOR INPATIENT GLYCEMIC CONTROL: * Basal insulin - none * Bolus insulin - continue same in TPN but tighten goal range and CF * NovoLog per scale ACHS or Q6hrs while NPO * Goal Range: Low 110 mg/dL - High 150 mg/dL * Correction Factor: 15 mg/dL/unit * Prandial insulin: 20 units in TPN (to cover 175 gm of dextrose)
--- NOTE | 2018-04-21 15:19 | Palliative Care Progress Note ---
Date of Service April 21, 2018 Assessment & Plan (1) Palliative care encounter: Patient seen and examined , patient's son, Dr. Salcedo, case management, and nursing at bedside . 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 Patient presented to the emergency room on 04/05 with increasing right-sided weakness, increasing dysphasia and was found to have a 2.3 cm lesion of the left aspect of the ventral rachael. Patient completed 5/5 XRT sessions. Patient continues to have significant dysarthria, dysphasia, and right hemiparesis. Patient completed radiation-Monitoring for any improvement, Continuing to support patient with PPN-plan is for patient to go to 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 -Dysphasia-patient on PPN, after discharge would be under hospice care, will allow comfort feeds -Patient has been turned down by [facility] and other facilities as a rehab candidate -Discussed at length with both patient and son the option of feeding tube- patient now states he would allow feeding tube placement. Will consult GI -POLST form completed Will continue to follow to assist with medical decision making and provide support to patient's son (2) Hemiparesis of right dominant side: Dense right-sided hemiparesis, facial droop, dysarthria and dysphasia (3) Dysphagia: -Patient is n.p.o., continue PPN. -Continue Yankauer suction for oral secretions -PRN atropine caused thicker secretions which were difficult to clear-will DC (4) Metastatic squamous cell carcinoma: With new lesion in the ventral rachael-s/p palliative XRT Subjective Met with patient along with patient's son, attending physician Dr. Fowler, social work and nursing. Meeting to discuss goals of care as well as feeding tube. Patient up until a few days ago had not wanted a feeding tube-now patient has voiced that he does want a feeding tube. Patient and son both report positive hunger. Will have GI evaluate for possible G-tube. Review of Systems Patient denies fever, chills, chest pain, increased shortness of breath, or abdominal pain. Patient continues to have excess oral secretions requiring self suctioning. Patient denies any pain, has not required any as needed medications for pain or discomfort. Physical Exam 2 Vital Signs (Past 24 Hours): Last Vital Signs Temp 34.8 C L 04/21/18 11:10 Pulse 75 04/21/18 11:36 Resp 14 04/21/18 11:36 BP 148/77 H 04/21/18 11:10 Pulse Ox 92 04/21/18 11:36 Physical Exam: PE: NAD, speech slow, mild dysarthria HEENT: Right facial droop, hearing normal Respirations-unlabored CV: Regular rate, no edema Abdomen, not distended Neuro: Dense right hemiparesis, dysarthria, dysphasia. Patient is alert and oriented x4 able to participate in medical decision making Time Spent Attending Total time spent greater than 65 minutes with greater than 50% of the time spent at bedside discussing goals of care as well as benefit versus burden of feeding tube. _ (1) Hemiparesis of right dominant side Hemiparesis etiology: non-cerebrovascular etiology Cerebrovascular disease type: Qualified Code(s): G81.91 - Hemiplegia, unspecified affecting right dominant side (2) Dysphagia Dysphagia type: esophageal phase Qualified Code(s): R13.10 - Dysphagia, unspecified
[2018-04-21] MEDS ORDERED: CUSTOM CENTRAL PN IV SCH (16:00)
--- NOTE | 2018-04-21 16:20 | Gastroenterology Progress Note ---
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 He had received palliative XRT, and going to be DC'd to [facility] on Hospice care. He cannot handle his oral secretions, and had failed his barium swallow. Currently on PPN. Pt had previously refused PEG placement, today he changed his mind wanted it placed now. I asked pt what goal he wants to achie ve by having PEG placement and after several attempts he said "to live longer". I informed him that unfortunately having PEG feeding would not change his prognosis and may not prolong his live longer. PEG placement is also considered an invasive procedure and comes with risks of anesthesia use and during the procedure itself. I do not recommend PEG placement in this pt's case, whose prognosis is poor. May consider NGT placement for feeding or surgically placed PEG-J. I asked him for permission to speak with his son to discuss further, but pt would not like me to. 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 He has a hard time handling oral secretions and failed his swallow study. He is currently on PPN. GI asked to evaluate him for possible PEG placement a few weeks ago and at that time pt had declined tube feeding. He had also listed this in his advanced directive. He had completed palliative radiation w/o significant improvement of his symptoms. Today GI asked to see pt again as he is asking to have PEG placement for feeding purposes now. He is pending discharge to [facility] with Hospice care. Physical Exam Vital Signs (Past 24 Hours): Last Vital Signs Temp 36.8 C 04/21/18 15:48 Pulse 84 04/21/18 15:48 Resp 16 04/21/18 15:48 BP 150/83 H 04/21/18 15:48 Pulse Ox 96 04/21/18 15:48 Constitutional: + ill appearing, + thin and cooperative; + uncomfortable ENMT: external ear and nose normal, oropharynx normal Respiratory: normal respiratory effort; no respiratory distress Gastrointestinal (Abdomen): Percussion/Palpation: abdomen soft; abdomen nontender Skin: no rashes, warm and dry no jaundice Neurologic: R hemipheresis, speech garbelled difficult to understand Lymphatic: + lymphedema (1) Dysphagia Dysphagia type: esophageal phase Qualified Code(s): R13.10 - Dysphagia, unspecified
--- NOTE | 2018-04-21 20:09 | Hospitalist Progress Note ---
Date of Service April 21, 2018 Assessment & Plan (1) Pontine lesion: Progressive worsening of symptoms with dysarthria dysphagia right hemiparesis No change or improvement of symptoms after completion of palliative radiation treatment Referral made to [facility] for [facility], given severe deconditioning per PT OT patient is not a candidate for skilled placement [facility] will not be able to accept patient with continued TPN Discussed with palliative care employment evaluator/case manager, patient's son Plan for family meetingTomorrow to discuss goal of care Presented with progressive dysphagia and right-sided weakness. CT head 04/05/18 demonstrated ill-defined left pontine lesion. 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 Received IV dexamethasone. Medical Oncology and Radiation Oncology consulted. Stereotactic external beam radiation therapy recommended and initiated. Worsening right-sided weakness on 04/08. CT demonstrated hemorrhage associated with left pontine lesion. Last session of radiation therapy 04/14/18. Discussed steroid taper with Radiation Oncology. Continue current dose of dexamethasone for 7 more days after completion of XRT ( until 04/20), then reduce dose by 50% on a weekly basis. Continue PT and OT. High aspiration risk- continue NPO status. Prognosis poor. Palliative Care consulted. (2) SCC (squamous cell carcinoma): Metastatic squamous cell carcinoma of skin. Not candidate for chemotherapy at this time due to poor functional status. 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 Severe protein-calorie malnutrition with significant weight loss prior to admission. 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 Possible sinusitis. Trying course of antibiotics. (5) DVT prophylaxis: No anticoagulants due to pontine lesion with hemorrhage. SCD's. (6) Discharge planning issues: Difficult transition/discharge planning: Patient is unable to tolerate p.o. secondary to severe been brain stimulation, dysphasia With very poor prognosis palliative/comfort feeding with pure/soft diet-Will be appropriate Continuation of TPN for long-term is not practical, will not be covered by insurance on transition of care Feeding tube can have worsening of outcome: Pain, non-healing at site, infection , significant aspiration Patient is not eligible for skilled rehab secondary to Rapid decline In status, immobility complete assist Need to address Nutrition prior to transition to hospice facility Subjective Family meeting at patient's bedside with palliative care Dr. [facility], employment evaluator/case manager, myself and patient's son Goal of care discussed, poor prognosis with advanced malignancy TPN will not be continued on discharge to hospice facility Discussed about PEG tube feeding, Both myself, and Dr. Wagner updated patient regarding risk of doing any invasive procedure, putting a feeding tube, and aspiration risk feeding tube will not Provide any long JVD, we will not change outcome of the disease process, Patient found to be oriented, with episodes of confusion Very hard to understand secondary to severe dysarthria But noted to Comment repeatedly, wanted to have the feeding tube/PEG tube so he can eat Patient is advised with tube feeding he will not be able to taste food With palliative meal/feeding he will be allowed to have soft pudding/ice cream on his mouth, and can be suctioned out if he cannot swallow His medications can be crushed and put in pudding Patient repeats that he feels hungry, and will consider feeding tube GI team updated, GI physician funeral home assistant had bedside discussion with patient: Very Poor candidate for anesthesia, procedure high risk for adverse outcome Feeding tube may persists to worsening of quality of life, severe/recurrent aspiration, Will have repeated discussion with patient in the morning Patient's son does not feel putting a feeding tube is the right decision, for the past 1 week, patient was against feeding tube, had POLST sign by himself, If patient willingly wants to proceed, and the procedure is possible: Son feels it is going to be patient's own decision, he is worried about worsening outcome through the procedure Patient's son is POA, At present patient still has mental capacity to make on decision for healthcare We will continue to provide support, and counseling to patient and patient's family in this difficult situation Appreciate help input from palliative care, case management [facility] will be able to accept patient under hospice care, will be able to provide suction, TPN will not be covered, will not accept patient on TPN For feeding tube: Tube feeding will not be covered by hospice, Will be [id number] pay if patient willing to proceed Physical Exam 2 Vital Signs (Past 24 Hours): Last Vital Signs Temp 36.3 C L 04/21/18 19:22 Pulse 78 04/21/18 19:29 Resp 20 04/21/18 19:29 BP 134/68 04/21/18 19:22 Pulse Ox 92 04/21/18 19:29 Constitutional: WD/WN, vitals as above + ill appearing, + altered mental status (very lethergic , worsening of dysarthria , ), + physical limitations and + lethargic Eyes: + eyelid abnormality (marked rt eyelid droop ) Neck: trachea midline, no thyromegaly Respiratory: normal respiratory effort; no respiratory distress and no cough Cardiovascular: RRR, no murmur, no edema Rate/Rhythm: regular rate and regular rhythm Gastrointestinal (Abdomen): Inspection/Auscultation: normal bowel sounds; no abdominal edema Percussion/Palpation: abdomen soft; abdomen nontender Neurologic: + confused (episodes of confusion noted , pt is aware of the symptom and tries to correct ) Speech / Cognition: + abnormal speech ( dysarthric ) and + expressive aphasia (rt hemiparesis ) Motor/Sensory: + tremor (Right lower extremity) and + abnormal movement (Myoclonic jerk on right lower extremity) Psychiatric: A+Ox3, euthymic affect
[2018-04-21] MEDS: LORazepam 0.5 MG/1 ML VIAL IV SCH (21:21)
[2018-04-22] MEDS: INSULIN ASPART 100 UNITS/ML 3 ML PEN SC SCH ×4 (00:12→18:18)
[2018-04-22] MEDS: SODIUM CHLOR 7% 4 ML NEB INH SCH ×4 (07:04→19:54)
[2018-04-22] MEDS: LEVALBUTEROL HCL 0.63 MG/3 ML NEB NEB SCH ×4 (07:04→19:54)
[2018-04-22] MEDS: DEXAMETHASONE SOD PHOSPHATE 6 MG in SYRINGE 0 ML IV SCH ×2 (08:35→21:21)
[2018-04-22] MEDS: PANTOprazole 40 MG in SYRINGE 0 ML IV SCH (08:35)
[2018-04-22] MEDS: SODIUM CHLORIDE 0.65% NA SOLN 45 ML (OCEAN) SCH ×4 (08:35→21:22)
[2018-04-22 08:40] LABS: BUN Creatinine Ratio 77.2 (10-20); Calcium 8.5 mg/dl (8.5-10.1); Creatinine Clr Calc Pharmacy 71.4 ml/min; Est GFR (African American) 103.6; Est GFR (Non-African American) 89.4; Magnesium 2.1 mg/dl (1.8-2.4)
[2018-04-22 08:41] LABS: Phosphorus 2.8 mg/dl (2.5-4.9)
--- NOTE | 2018-04-22 13:55 | Anesthesiology Consultation ---
Date of Service April 22, 2018 Assessment & Plan (1) Encounter for pre-operative examination: Chart Review Chart Review: Acceptable Risk for Surgery and Patient NOT seen in Pre Admission Testing Consults Requested none ASA ASA4 History Surgery Operation Date: 04/22/18 13:10 Proposed Procedures p Esophagogastroduodenoscopy with Gastric Tube Placement - Lucía Rivera MD Height/Weight Height: 5 ft 6 in Weight: 59.5 kg Allergies Allergy/AdvReac Type Severity Reaction Status Date / Time morphine AdvReac Unknown SLOWS HR Verified 03/19/18 10:34 Medications Home Medications Medication Instructions Recorded Confirmed Last Taken diazepam [Valium] 5 mg PO HS PRN 03/15/18 04/05/18 Unknown ibuprofen [Advil] 200 mg PO QID PRN 03/15/18 04/05/18 03/10/18 omeprazole 20 mg PO QAM 03/15/18 04/05/18 03/19/18 triamcinolone acetonide 1 applic TOPICAL BID 03/15/18 04/05/18 03/18/18 acetaminophen [Tylenol Extra 500 - 1,000 mg PO Q6H PRN 04/05/18 04/05/18 08:00 Strength] Active Medications Generic Name Dose Route Start Last Admin Trade Name Freq PRN Reason Stop Dose Admin Acetaminophen 1,000 mg 04/06/18 13:14 04/15/18 18:20 Ofirmev IV 05/06/18 13:13 1,000 mg Q8 PRN Administration Pain Bisacodyl 10 mg 04/09/18 12:06 04/09/18 16:51 Dulcolax CO 05/09/18 12:05 10 mg DAILY PRN Administration Constipation Pantoprazole Sodium 40 mg/ 10 mls @ 5 mls/min 04/07/18 09:00 04/22/18 08:35 Syringe IV 05/07/18 08:59 5 mls/min DAILY MELANIE Administration Lorazepam 0.25 mg in 0.5 mls @ 0.5 mls/min 04/09/18 10:55 04/10/18 00:09 Ativan IV 05/09/18 10:54 0.5 mls/min Q4H PRN Administration Muscle Spasm Lorazepam 0.5 mg in 1 mls @ 0.5 mls/min 04/09/18 21:00 02/21/19 21:21 Ativan IV 05/09/18 20:59 0.5 mls/min HS MELANIE Administration Dexamethasone Sodium Phosphate 1.5 mls @ 1 mls/min 04/21/18 21:00 04/22/18 08 :35 6 mg/ Syringe IV 05/21/18 20:59 1 mls/min Q12 MELANIE Administration Insulin Aspart 0 units 04/17/18 12:00 04/22/18 12:23 Novolog Flexpen SC 05/17/18 11:59 6 units Q6 MELANIE Administration Levalbuterol HCl 0.63 mg 04/17/18 08:00 04/22/18 10:59 Xopenex 0.63 Mg/3 Ml Neb NEB 05/17/18 07:59 0.63 mg QIDR MELANIE Administration Nutrition (Parenteral) 1 bag 04/21/18 16:00 04/21/18 16:10 Custom Central Pn IV 04/22/18 15:59 1 bag 1600 MELANIE Administration Protocol Sodium Chloride 4 ml 04/16/18 20:00 04/22/18 10:59 Sodium Chlor 7% Neb Solution INH 05/16/18 19:59 4 ml QIDR MELANIE Administration Sodium Chloride 4 sprays 04/17/18 13:00 04/22/18 12:19 [place] Nasal NA 05/17/18 12:59 Not Given QID MELANIE Past Medical History Medical History Metastatic squamous cell carcinoma (Chronic) s/p resection of scalp in Jan 2017, s/p resection of mets to RLL by Dr. 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 Past Family History Family History Father Cancer lung cancer Lung disease worked at [employer] Mother Heart disease Mother HTN (hypertension) Past Surgical History Surgical History History of herniorrhaphy (Resolved) right inguinal hernia repair History of cholecystectomy (Resolved) History of bowel resection (Resolved) HX -- IBS and needed due to unable to pass colonoscope History of esophagogastroduodenoscopy (EGD) (Resolved) Social History Smoking Status: Current every day smoker tobacco type: pipe Do You Dip or Chew Tobacco: No Hx Alcohol Use: Yes Alcohol type: beer alcohol intake frequency: holidays/special occasions only Hx Substance Use: No substance use type: does not use Physical Exam Vital Signs Last Vital Signs Temp 36.4 C L 04/22/18 07:33 Pulse 62 04/22/18 11:01 Resp 18 04/22/18 11:01 BP 105/58 L 04/22/18 07:33 Pulse Ox 92 04/22/18 11:01 Testing Laboratory Results 04/06/18 06:27 04/22/18 07:39 Urine Color Yellow 04/05/18 19:15 Urine Appearance Clear (Clear) 04/05/18 19:15 Urine pH 5.5 (4.5-7.5) 04/05/18 19:15 Ur Specific Scott > 1.045 (1.000-1.030) H 04/05/18 19:15 Urine Protein Negative (Negative) 04/05/18 19:15 Urine Glucose (UA) Negative (Negative) 04/05/18 19:15 Urine Ketones 1+ (Negative) H 04/05/18 19:15 Urine Nitrite Negative (Negative) 04/05/18 19:15 Ur Leukocyte Esterase Negative (Negative) 04/05/18 19:15 Urine WBC (Auto) 1-5 /hpf (0-5) 04/05/18 19:15 Urine RBC (Auto) 0-4 /hpf (0-4) 04/05/18 19:15 U Hyaline Cast (Auto) 1-5 /lpf (0-5) 04/05/18 19:15 U Epithel Cells (Auto) 5-10 /lpf (0-5) H 04/05/18 19:15 Urine Bacteria (Auto) Negative (Negative) 04/05/18 19:15 04/22/18 04/22/18 11:59 05:54 POC Glucose 233 H 155 H
--- NOTE | 2018-04-22 14:08 | History & Physical Bridge Note ---
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 He had received palliative XRT, and going to be DC'd to [facility] on Hospice care. He cannot handle his oral secretions, and had failed his barium swallow. Currently on PPN. Pt had previously refused PEG placement, but in last 2-3 days he changed his mind wanted it placed now. He was seen by our team yesterday and hospital team asked for us to see him again today as pt is adamant about getting his PEG tube placed. [facility] would not accept pt on PPN or NGT/Dobhoff tube feeding. I have examined the patient, reviewed the History & Physical and in the interval since the performance of the History & Physical I have noted the following changes of clinical significance: no changes noted Pt seen by myself and Dr. Rivera. We reviewed risks of endoscopically placed PEG tube with pt and his son. Per Anesthesia (Dr. Claire) pt acceptable risk for sedation for PEG placement. He has to be intubated so will plan for PEG placement in OR today Supervising Physician Co-Signing Physician Notes I performed a history and physical examination of the patient, including specifically on physical exam - soft, nontender abdomen. I have discussed the patient's management with Yoli. Please refer to the nurse practitioner's note for the documented findings and plan of care. I sopke to the patient and the son Gustavo, they understand that the procedure is high risk in view of his clinical condition and they agreed to do it. Consent in chart.
[2018-04-22] MEDS ORDERED: fentaNYL citrate 100 MCG/2 ML VIAL ONE (14:21)
[2018-04-22] MEDS ORDERED: SUCCINYLCHOLINE 100MG/5ML SYR ONE (14:21)
[2018-04-22] MEDS ORDERED: ONDANSETRON INJ 2 MG/ML 2 ML VIAL ONE (14:21)
[2018-04-22] MEDS ORDERED: PROPOFOL IV EMULSION 10 MG/ML 20 ML VIAL IV ONE (14:21)
[2018-04-22] MEDS ORDERED: LIDOCAINE 2% 20 MG/ML 5 ML SYR IV ONE (14:21)
[2018-04-22] MEDS ORDERED: CEFAZOLIN 1000MG 1,000 MG/7.5 ML SYR IV STA (14:44)
[2018-04-22] MEDS ORDERED: CEFAZOLIN 1,000 MG/7.5 ML IV PUSH IV ONE (14:47)
[2018-04-22] MEDS ORDERED: ATROPINE SULFATE 0.1 MG/ML 10ML SYR IV PRN (14:53)
[2018-04-22] MEDS ORDERED: ePHEDrine sulfate 50 MG/ML AMP IV PRN (14:53)
[2018-04-22] MEDS ORDERED: fentaNYL citrate 100 MCG/2 ML VIAL IV PRN (14:53)
--- NOTE | 2018-04-22 14:57 | History & Physical Bridge Note ---
Date of Service April 22, 2018 History & Physical Bridge Note I have examined the patient, reviewed the History & Physical and in the interval since the performance of the History & Physical I have noted the following changes of clinical significance: no changes noted Patient is for Upper endoscopy with PEG tube placement.
--- NOTE | 2018-04-22 14:58 | Palliative Care Progress Note ---
Date of Service April 22, 2018 Assessment & Plan (1) Palliative care encounter: Patient seen and examined , patient's son, Dr. Salcedo, case management, and nursing at bedside . 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 Patient presented to the emergency room on 04/05 with increasing right-sided weakness, increasing dysphasia and was found to have a 2.3 cm lesion of the left aspect of the ventral rachael. Patient completed 5/5 XRT sessions. Patient continues to have significant dysarthria, dysphasia, and right hemiparesis. 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 -Dysphasia-patient on PPN, patient to be seen by anesthesiology-if patient is deemed adequate risk for sedation-GI will place G-tube as per patient wishes -Plan is for transfer to [facility] depending on whether or not G-tube can be placed today. Room available today if patient is medically stable -Filled out F MLA paperwork for son Will continue to follow to assist with medical decision making and provide support to patient's son (2) Hemiparesis of right dominant side: Dense right-sided hemiparesis, facial droop, dysarthria and dysphasia-no change on exam as a result of XRT (3) Dysphagia: -Patient is n.p.o., continue PPN. -Continue Yankauer suction for oral secretions -PRN atropine caused thicker secretions which were difficult to clear-will DC (4) Metastatic squamous cell carcinoma: With new lesion in the ventral rachael-s/p palliative XRT Subjective Met with patient and son at bedside, GI also at bedside-discussing feeding tube. GI reluctant to place feeding tube due to high risk of anesthesia-we will get anesthesia consult. If anesthesia deems patient a reasonable risk-GI will place feeding tube as per patient's wishes Review of Systems Patient denies fever, chills, chest pain or increased shortness of breath, or abdominal pain. Patient continues to self suction for excess oral secretions due to dysphasia Physical Exam 2 Vital Signs (Past 24 Hours): Last Vital Signs Temp 36.8 C 04/22/18 14:51 Pulse 82 04/22/18 14:51 Resp 22 04/22/18 14:51 BP 134/66 04/22/18 14:51 Pulse Ox 93 04/22/18 14:51 Physical Exam: PE: NAD HEENT: Normal hearing Respirations: Unlabored CV: Regular rate, no edema Abdomen: Nontender Neuro: Alert and oriented Time Spent Attending Total time spent 40 minutes with greater than 50% of the time spent at bedside discussing treatment options, as well as goals of care with both patient and son. _ (1) Hemiparesis of right dominant side Hemiparesis etiology: non-cerebrovascular etiology Cerebrovascular disease type: Qualified Code(s): G81.91 - Hemiplegia, unspecified affecting right dominant side (2) Dysphagia Dysphagia type: esophageal phase Qualified Code(s): R13.10 - Dysphagia, unspecified
[2018-04-22] MEDS ORDERED: ETOMIDATE 2 MG/ML 20 ML VIAL IV ONE (15:03)
--- NOTE | 2018-04-22 15:29 | Operative Report ---
Post Operative Report Pre & Post Diagnosis Operation Date: 04/22/18 13:10 Pre-Op Diagnosis: Dysphagia Post-Op Diagnosis: Dysphagia Procedure Operation Date: 04/22/18 13:10 Actual Procedures p Esophagogastroduodenoscopy with Gastric Tube Placement - Lucía Rivera MD Surgeon Lucía Rivera MD Sample Checker None Estimated Blood Loss 2 Findings See Below (EGD with PEG tube placement) Specimens None Description of Procedure Upper Endoscopy with PEG tube placement I attest to the content of the Intraoperative Record and any orders documented therein. Any exceptions are noted below.
--- NOTE | 2018-04-22 15:44 | GI REPORT ---
Patient Name: Oscar Lujan Procedure Date: 04/22/2018 2:56 PM Date of : 1935 Admit Type: Inpatient Age: 82 Gender: Male Attending MD: Lucía Rivera MD Procedure: Upper GI endoscopy Providers: Lucía Rivera MD Referring MD: Franchesca Cano Indications: Dysphagia, Malnutrition Medicines: General Anesthesia Complications: No immediate complications. Estimated Blood Loss: Estimated blood loss: none. Procedure: Pre-Anesthesia Assessment: - Prior to the procedure, a History and Physical was performed, and patient medications and allergies were reviewed. The patient is unable to give consent secondary to the patient being legally incompetent to consent. The risks and benefits of the procedure and the sedation options and risks were discussed with the patient's son. All questions were answered and informed consent was obtained. Patient identification and proposed procedure were verified by the physician and the nurse in the procedure room. Mental Status Examination: alert and oriented. Airway Examination: normal oropharyngeal airway and neck mobility. Respiratory Examination: clear to auscultation. CV Examination: normal. ASA Grade Assessment: IV - A patient with severe systemic disease that is a constant threat to life. After reviewing the risks and benefits, the patient was deemed in satisfactory condition to undergo the procedure. The anesthesia plan was to use general anesthesia. Immediately prior to administration of medications, the patient was re-assessed for adequacy to receive sedatives. The heart rate, respiratory rate, oxygen saturations, blood pressure, adequacy of pulmonary ventilation, and response to care were monitored throughout the procedure. The physical status of the patient was re-assessed after the procedure. After obtaining informed consent, the endoscope was passed under direct vision. Throughout the procedure, the patient's blood pressure, pulse, and oxygen saturations were monitored continuously. The scope was introduced through the mouth, and advanced to the second part of duodenum. The upper GI endoscopy was accomplished without difficulty. The patient tolerated the procedure well. Findings: The examined esophagus was normal. The entire examined stomach was normal. The duodenal bulb and second portion of the duodenum were normal. The patient was placed in the supine position for PEG placement. The stomach was insufflated to appose gastric and abdominal lantigua. A site was located in the body of the stomach with excellent transillumination and manual external pressure for placement. The abdominal wall was marked and prepped in a sterile manner. The area was anesthetized with 2 mL of 1% lidocaine. The trocar needle was introduced through the abdominal wall and into the stomach under direct endoscopic view. A snare was introduced through the endoscope and opened in the gastric lumen. The guide wire was passed through the trocar and into the open snare. The snare was closed around the guide wire. The endoscope and snare were removed, pulling the wire out through the mouth. A skin incision was made at the site of needle insertion. The externally removable 20 Fr Gregory-Soonr gastrostomy tube was lubricated. The G-tube was tied to the guide wire and pulled through the mouth and into the stomach. The trocar needle was removed, and the gastrostomy tube was pulled out from the stomach through the skin. The external bumper was attached to the gastrostomy tube, and the tube was cut to remove the guide wire. The final position of the gastrostomy tube was confirmed by relook endoscopy, and skin marking noted to be 2.5 cm at the external bumper. The final tension and compression of the abdominal wall by the PEG tube and external bumper were checked and revealed that the bumper was moderately tight and mildly deforming the skin. The feeding tube was capped, and the tube site cleaned and dressed. Prophylactic Antibiotics given prior to the procedure. Impression: - Normal esophagus. - Normal stomach. - Normal duodenal bulb and second portion of the duodenum. - An externally removable PEG placement was successfully completed. - No specimens collected. Recommendation: - [facility]. - Please follow the post-PEG recommendations as below. - Nutrition consult for formula and volume. - Dry dressing only. - NPO x4 hrs then water today. - May use PEG tomorrow for feedings. - Recall Gi if needed. Lucía Rivera MD 04/22/2018 3:43:44 PM This report has been signed electronically. Note Initiated On: 04/22/2018 2:56 PM Number of Addenda: 0 I attest to the content of the Intraoperative Record and orders documented therein, exceptions below {[id number]}
[2018-04-22] MEDS ORDERED: CUSTOM CENTRAL PN IV SCH (16:00)
--- NOTE | 2018-04-22 16:29 | Anesthesiology Progress Note ---
Date of Service April 22, 2018 Anesthesia Post Procedure Vital Signs Vital Signs: Temp Pulse Pulse Pulse Pulse Resp BP 04/22/18 16:05 87 17 125/86 04/22/18 16:00 81 16 147/76 H 04/22/18 15:55 78 14 141/72 H 04/22/18 15:50 72 14 149/75 H 04/22/18 15:45 77 15 141/77 H 04/22/18 15:42 74 12 04/22/18 15:40 75 18 132/79 04/22/18 15:39 36.8 C 76 80 19 132/88 04/22/18 14:51 36.8 C 82 22 04/22/18 14:31 36.8 C 82 22 04/22/18 11:01 62 18 04/22/18 07:33 36.4 C L 58 L 18 04/22/18 07:05 63 18 04/22/18 03:00 36.5 C 60 69 H 04/21/18 23:00 36.5 C 71 18 04/21/18 19:29 78 20 04/21/18 19:22 36.3 C L 83 21 BP Pulse Ox 04/22/18 16:05 96 04/22/18 16:00 98 04/22/18 15:55 98 04/22/18 15:50 100 04/22/18 15:45 99 04/22/18 15:42 99 04/22/18 15:40 98 04/22/18 15:39 132/88 98 04/22/18 14:51 134/66 93 04/22/18 14:31 134/66 93 04/22/18 11:01 92 04/22/18 07:33 105/58 L 91 04/22/18 07:05 98 04/22/18 03:00 128/75 98 04/21/18 23:00 116/70 94 04/21/18 19:29 92 04/21/18 19:22 134/68 94 Pain Intensity Left Abdomen: Pain Intensity: 2 Notes Mental Status: alert / awake / arousable and participated in evaluation Patient Amnestic to Procedure: Yes Nausea / Vomiting: adequately controlled Pain: adequately controlled Airway Patency, RR, SpO2: stable & adequate BP & HR: stable & adequate Hydration State: stable & adequate Anesthetic Complications: no major complications apparent and Pt Satisfied with anesthetic care
[2018-04-22] MEDS ORDERED: MoRPHine SULFATE 4 MG/ML 1 ML CARP\\VIAL IV PRN (17:42)
--- NOTE | 2018-04-22 18:24 | XRay Report ---
KUB HISTORY: Check tube placement COMPARISON: CT abdomen pelvis 04/18/2017. FINDINGS: A tube coils about the abdominal left upper quadrant. Enteric contrast noted within the lar ge bowel. The bowel gas pattern is nonobstructive. Surgical clips are noted about the right upper abd omen and right lower pelvis. No urolith . IMPRESSION: 1. Nonobstructive bowel gas pattern. 2. A tube is noted coiling about the abdominal left upper quadrant, possibly a gastrostomy tube. 2. Retained enteric contrast noted within the large bowel. Electronically signed by: Sae Kwan M.D. 04/22/2018 6:22 PM
--- NOTE | 2018-04-22 18:45 | Hospitalist Progress Note ---
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 CT head 04/05/18 demonstrated ill-defined left pontine lesion. 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 Received IV dexamethasone. Medical Oncology and Radiation Oncology consulted. Stereotactic external beam radiation therapy recommended and initiated. Worsening right-sided weakness on 04/08. CT demonstrated hemorrhage associated with left pontine lesion. Last session of radiation therapy 04/14/18. Discussed steroid taper with Radiation Oncology. Continue current dose of dexamethasone for 7 more days after completion of XRT ( until 04/20), then reduce dose by 50% on a weekly basis. High aspiration risk-has been strictly n.p.o., was started on TPN Prognosis poor. Palliative Care following PEG tube placed per patient's request, for palliative feeding (2) SCC (squamous cell carcinoma): Metastatic squamous cell carcinoma of skin. Not candidate for chemotherapy at this time due to poor functional status. 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 Severe protein-calorie malnutrition with significant weight loss prior to admission. 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 Possible sinusitis. Completed 5 days of Zosyn (5) DVT prophylaxis: No anticoagulants due to pontine lesion with hemorrhage. SCD's. (6) Discharge planning issues: Status post PEG tube placed For possible skilled later transition to hospice Social service following Possible transfer to [facility] on Wednesday Subjective Patient stated clearly multiple times he wants a feeding tube to be placed Multiple discussion with GI team, palliative care team, Patient is aware of his poor prognosis, terminal status, feeding tube will not provide any longivity/ Outcome will remain poor aware of the risk involved with the procedure: Infection perforation during PEG tube placement, recurrent aspiration Patient's son present at bedside Understands that putting a feeding tube at this stage would not be ideal, but willing to respect patient's wish Patient was taken to the endoscopy suite by GI S/P PEG tube placed today Procedure done without any complication Dietitian consulted Plan to start on tube feeding tomorrow with the lowest possible rate, to prevent aspiration/ Physical Exam 2 Vital Signs (Past 24 Hours): Last Vital Signs Temp 36.4 C L 04/22/18 18:35 Pulse 83 04/22/18 18:35 Resp 21 04/22/18 18:35 BP 103/66 04/22/18 18:35 Pulse Ox 99 04/22/18 18:35 Constitutional: WD/WN, vitals as above + ill appearing, + altered mental status (very lethergic , worsening of dysarthria , ), + physical limitations and + lethargic Eyes: + eyelid abnormality (marked rt eyelid droop ) Neck: trachea midline, no thyromegaly Respiratory: normal respiratory effort; no respiratory distress and no cough Cardiovascular: RRR, no murmur, no edema Rate/Rhythm: regular rate and regular rhythm Gastrointestinal (Abdomen): Inspection/Auscultation: normal bowel sounds; no abdominal edema Percussion/Palpation: abdomen soft; abdomen nontender Neurologic: + confused (episodes of confusion noted , pt is aware of the symptom and tries to correct ) Speech / Cognition: + abnormal speech ( dysarthric ) and + expressive aphasia (rt hemiparesis ) Motor/Sensory: + tremor (Right lower extremity) and + abnormal movement (Myoclonic jerk on right lower extremity) Psychiatric: A+Ox3, euthymic affect
[2018-04-22] MEDS: LORazepam 0.5 MG/1 ML VIAL IV SCH (21:22)
[2018-04-23] MEDS: INSULIN ASPART 100 UNITS/ML 3 ML PEN SC SCH ×4 (00:42→18:35)
[2018-04-23] MEDS: LEVALBUTEROL HCL 0.63 MG/3 ML NEB NEB SCH ×4 (07:17→19:49)
[2018-04-23] MEDS: SODIUM CHLOR 7% 4 ML NEB INH SCH ×2 (07:17→19:50)
[2018-04-23] MEDS: SODIUM CHLORIDE 0.65% NA SOLN 45 ML (OCEAN) SCH ×4 (08:09→20:22)
[2018-04-23] MEDS: DEXAMETHASONE SOD PHOSPHATE 6 MG in SYRINGE 0 ML IV SCH ×2 (08:10→20:19)
[2018-04-23] MEDS: PANTOprazole 40 MG in SYRINGE 0 ML IV SCH (08:10)
--- NOTE | 2018-04-23 08:56 | Gastroenterology Progress Note ---
Date of Service April 23, 2018 Supervising Physician Co-Signing Physician Notes PEG Placed by GI attending on 04/22/18- would follow his recommendations for further mgmt of the tube. GI will sign off. Subjective No complaints PEG placed - checked post peg placement by Dr. Rivera - no reported issues Physical Exam 2 Vital Signs (Past 24 Hours): Last Vital Signs Temp 37.0 C 04/23/18 08:04 Pulse 65 04/23/18 08:04 Resp 14 04/23/18 08:04 BP 122/62 04/23/18 08:04 Pulse Ox 95 04/23/18 08:04 Physical Exam: No acute distress Gastrointestinal (Abdomen): normal bowel sounds, soft, nontender, no hepatosplenomegaly PEG site intact Results & Data Laboratory Results No new labs
[2018-04-23] MEDS ORDERED: PEPTAMEN 1.5 CAL 1,000 ML BAG PEG SCH (09:45)
--- NOTE | 2018-04-23 10:37 | Pharmacy Report ---
Pharmacy Glycemic Sign Off Nt - Date of Service April 23, 2018 - Assessment & Plan ASSESSMENT: * Pharmacy was consulted by Dr Cano on 04/12/18 for glycemic control and to write orders per [facility] inpatient glycemic control protocol. * Major changes made by pharmacy to antidiabetic regimen include: * initiation of a Novolog scale * addition of insulin to TPN * Patient has been receiving/requiring 7 units of insulin per day for adequate glycemic control (plus 20 units in TPN) * BSGs ranging 132- 233 mg/dl * Regimen has only required minor adjustments over the past 48hrs to achieve this level of control * Do not anticipate further changes in patient status that would quickly deteriorate glycemic control (i.e. patient to be NPO for upcoming procedure, steroids tapering, starting tube feedings, etc). * Please see recommendations for outpatient antidiabetic regimen below. PLAN FOR INPATIENT GLYCEMIC CONTROL: No changes needed to current regimen. * Continue NovoLog per scale ACHS/Q6hrs while NPO * Goal range = 110 140 mg/dl * CF = 30 mg/dl/unit * CR = 1 unit for ever 10 g CHO consumed * A1c added to discharge instructions to be communicated to PCP. * Pharmacy is signing off of glycemic consult and will no longer be making adjustments to inpatient regimen. Please feel free to re-consult if needed. Thank you.
--- NOTE | 2018-04-23 17:30 | Hospitalist Progress Note ---
Date of Service April 23, 2018 Assessment & Plan (1) Nutrition disorder: Severe dysphagia due to pontine lesion. Severe protein-calorie malnutrition with significant weight loss prior to admission. 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, unable to swallow Oral secretion Status post PEG tube placement, patient started on to feeding which can be continued as a part of the palliative care Tube feeding started at the very low-dose, to prevent abdominal bloating, aspiration, Day per hour: Appreciate input from dietary for the past 10 hours patient has been tolerating tube feeding very well No pain or discomfort at the PEG tube placement site, TPN discontinued Present on Admission?: Yes (2) Pontine lesion: Progressive worsening of symptoms with dysarthria dysphagia right hemiparesis No change or improvement of symptoms after completion of palliative radiation treatment [facility]erral made [facility], given severe deconditioning per PT OT patient is not a candidate for skilled placement [facility] will not be able to accept patient with continued TPN Discussed with palliative care cyanide case hardener, patient's son Plan for family meetingTomorrow to discuss goal of care Presented with progressive dysphagia and right-sided weakness. CT head 04/05/18 demonstrated ill-defined left pontine lesion. 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 Received IV dexamethasone. Medical Oncology and Radiation Oncology consulted. Completed palliative radiation treatment, no improvement of symptoms Worsening right-sided weakness on 04/08. CT demonstrated hemorrhage associated with left pontine lesion. On IV dexamethasone will continue to reduce dose by 50% on a weekly basis. Will change dexamethasone to oral which can be crushed and given via PEG tube Prognosis poor. Palliative Care following PEG tube placed per patient's request, for palliative feeding Plan to [facility], later transition to hospice care Present on Admission?: Yes (3) SCC (squamous cell carcinoma): Metastatic squamous cell carcinoma of skin. Not candidate for chemotherapy at this time due to poor functional status. (4) Difficulty clearing secretions: Secondary to severe dysphasia, with pontine Patient is continue to use oral suction, Continue saline nebs. Possible sinusitis. Completed 5 days of Zosyn Present on Admission?: Yes (5) DVT prophylaxis: Moderate to high risk, secondary to significant deconditioning bedbound dense right hemiparesis No anticoagulants due to metastatic pontine lesion with hemorrhage. SCD's. Patient is a DNR/DNI (6) Discharge planning issues: Status post PEG tube placed For possible skilled placement later transition to hospice Social service following [facility] on Wednesday04/25/2018 Subjective Started on tube feeding today, 10 mL/h, has been tolerating well No complaint of abdominal pain, or discomfort at PEG tube placement sign Less amount of oral secretions noted Patient remains severely dysarthric Dense hemiparesis of the right side including market right facial droop Physical Exam 2 Vital Signs (Past 24 Hours): Last Vital Signs Temp 36.7 C 04/23/18 15:56 Pulse 64 04/23/18 15:56 Resp 14 04/23/18 15:56 BP 124/62 04/23/18 15:56 Pulse Ox 96 04/23/18 15:56 Constitutional: WD/WN, vitals as above + ill appearing, + altered mental status (very lethergic , worsening of dysarthria , ), + physical limitations and + lethargic Eyes: + eyelid abnormality (marked rt eyelid droop ) Neck: trachea midline, no thyromegaly Respiratory: normal respiratory effort; no respiratory distress and no cough Cardiovascular: RRR, no murmur, no edema Rate/Rhythm: regular rate and regular rhythm Gastrointestinal (Abdomen): Inspection/Auscultation: normal bowel sounds; no abdominal edema Percussion/Palpation: abdomen soft; abdomen nontender Neurologic: + confused (episodes of confusion noted , pt is aware of the symptom and tries to correct ) Speech / Cognition: + abnormal speech ( dysarthric ) and + expressive aphasia (rt hemiparesis ) Motor/Sensory: + tremor (Right lower extremity) and + abnormal movement (Myoclonic jerk on right lower extremity) Psychiatric: A+Ox3, euthymic affect
[2018-04-24] MEDS: INSULIN ASPART 100 UNITS/ML 3 ML PEN SC SCH ×4 (01:20→18:45)
[2018-04-24] MEDS: MoRPHine SULFATE 5 MG/0.25 ML UDP GT PRN (02:06)
[2018-04-24] MEDS: SODIUM CHLOR 7% 4 ML NEB INH SCH ×2 (07:01→19:26)
[2018-04-24] MEDS: LEVALBUTEROL HCL 0.63 MG/3 ML NEB NEB SCH ×4 (07:01→19:26)
[2018-04-24] MEDS: SODIUM CHLORIDE 0.65% NA SOLN 45 ML (OCEAN) SCH ×4 (07:41→22:09)
[2018-04-24] MEDS: DEXAMETHASONE SOD PHOSPHATE 6 MG in SYRINGE 0 ML IV SCH ×2 (07:41→20:58)
--- NOTE | 2018-04-24 11:01 | XRay Report ---
XR chest 1V portable CLINICAL HISTORY: 82 years-old Male presenting with sob. TECHNIQUE: Portable upright AP view of the chest was obtained. COMPARISON: 04/15/[address] from 04/06/2018. FINDINGS: Left upper cavity PICC terminates in the lower SVC. Atherosclerosis of the aortic arch. Cardiac silho uette normal in size. Suture margin projects over the right hilum. Lungs are mildly hyperinflated. He terogeneous lung parenchyma. Vague opacities at the left lung base. No pleural effusion or pneumothor ax. Osteopenia may be present. IMPRESSION: 1. Left basilar opacities likely atelectasis or scarring. An infectious etiology is considered less likely. 2. Underlying emphysema. Electronically signed by: Jay Ledbetter M.D. 04/24/2018 10:59 AM
--- NOTE | 2018-04-24 12:19 | Hospitalist Progress Note ---
Date of Service April 24, 2018 Assessment & Plan (1) Nutrition disorder: PEG tube placed, started on tube feeding, tolerating well Severe dysphagia due to pontine lesion. Severe protein-calorie malnutrition with significant weight loss prior to admission. 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, unable to swallow Oral secretion Status post PEG tube placement, patient started on to feeding which can be continued as a part of the palliative care Tube feeding started at the very low-dose, to prevent abdominal bloating, aspiration, Day per hour: Appreciate input from dietary for the past 10 hours patient has been tolerating tube feeding very well No pain or discomfort at the PEG tube placement site, TPN discontinued (2) Pontine lesion: Progressive worsening of symptoms with dysarthria dysphagia right hemiparesis No change or improvement of symptoms after completion of palliative radiation treatment Referral made to [facility] for [facility], given severe deconditioning per PT OT patient is not a candidate for skilled placement [facility] will not be able to accept patient with continued TPN Discussed with palliative care case resolution specialist, patient's son Plan for family meetingTomorrow to discuss goal of care Presented with progressive dysphagia and right-sided weakness. CT head 04/05/18 demonstrated ill-defined left pontine lesion. 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 Received IV dexamethasone. Medical Oncology and Radiation Oncology consulted. Completed palliative radiation treatment, no improvement of symptoms Worsening right-sided weakness on 04/08. CT demonstrated hemorrhage associated with left pontine lesion. On IV dexamethasone will continue to reduce dose by 50% on a weekly basis. Will change dexamethasone to oral which can be crushed and given via PEG tube Prognosis poor. Palliative Care following PEG tube placed per patient's request, for palliative feeding Plan to transfer to [facility] on Wednesday, later transition to hospice care (3) SCC (squamous cell carcinoma): Metastatic squamous cell carcinoma of skin. Not candidate for chemotherapy at this time due to poor functional status. (4) Difficulty clearing secretions: Secondary to severe dysphasia, with pontine Patient is continue to use oral suction, Continue saline nebs. Possible sinusitis. Completed 5 days of Zosyn (5) DVT prophylaxis: Moderate to high risk, secondary to significant deconditioning bedbound dense right hemiparesis No anticoagulants due to metastatic pontine lesion with hemorrhage. SCD's. Patient is a DNR/DNI (6) Discharge planning issues: Status post PEG tube placed For possible skilled placement later transition to hospice Social service following Possible transfer to [facility] on Wednesday04/25/2018 Subjective Tolerating tube feeding since yesterday, no abdominal pain, no evidence of aspiration, oral secretion markedly improved, patient hardly requiring to do suction, tube feeding increased to 15 mL/h Patient reports of feeling better, does not feel hungry Son and family friend visiting Plan is to go to [facility] possible tomorrow with continued tube feeding Try to transition to bolus tube feeding tomorrow prior to transfer to [facility] Physical Exam 2 Vital Signs (Past 24 Hours): Last Vital Signs Temp 36.4 C L 04/24/18 11:53 Pulse 72 04/24/18 11:53 Resp 18 04/24/18 11:53 BP 114/72 04/24/18 11:53 Pulse Ox 100 04/24/18 11:53 Constitutional: WD/WN, vitals as above + ill appearing and + physical limitations Eyes: + eyelid abnormality (marked rt eyelid droop ) Neck: trachea midline, no thyromegaly Respiratory: normal respiratory effort; no respiratory distress and no cough Cardiovascular: RRR, no murmur, no edema Rate/Rhythm: regular rate and regular rhythm Gastrointestinal (Abdomen): Inspection/Auscultation: normal bowel sounds; no abdominal edema Percussion/Palpation: abdomen soft; abdomen nontender Neurologic: + confused (episodes of confusion noted , pt is aware of the symptom and tries to correct ) Speech / Cognition: + abnormal speech ( dysarthric ) and + expressive aphasia (rt hemiparesis )
[2018-04-25] MEDS: MoRPHine SULFATE 5 MG/0.25 ML UDP GT PRN (00:04)
[2018-04-25] MEDS: INSULIN ASPART 100 UNITS/ML 3 ML PEN SC SCH ×3 (00:10→13:13)
[2018-04-25] MEDS: LEVALBUTEROL HCL 0.63 MG/3 ML NEB NEB SCH ×2 (07:07→11:24)
[2018-04-25] MEDS: SODIUM CHLOR 7% 4 ML NEB INH SCH (07:08)
[2018-04-25] MEDS: DEXAMETHASONE SOD PHOSPHATE 6 MG in SYRINGE 0 ML IV SCH (08:19)
[2018-04-25] MEDS: SODIUM CHLORIDE 0.65% NA SOLN 45 ML (OCEAN) SCH ×2 (08:20→13:00)
[2018-04-25] MEDS ORDERED: LORazepam 1 MG TAB SL PRN (10:42)
[2018-04-25] MEDS ORDERED: METOCLOPRAMIDE HCL 5 MG/5 ML UDP PO ONE (11:50)
--- NOTE | 2018-04-25 13:44 | Discharge Summary ---
Date of Service April 25, 2018 Admission HPI Per Admitting Provider This is an 82yo M with a PMH of metastatic squamous cell carcinoma who presents with progressive weakness of right side x 2 weeks. First noticed paresthesias and weakness of R hand 2 weeks ago and it has progressed to full R side. Was evaluated in the ED on 04/01 and had no weakness on exam. CT head without contrast was negative and patient was discharged home. Over the weekend, weakness progressed and patient began to have more difficulty with ambulation. This morning, patient got up at 3am to use bathroom and was able to limp there. As of 8am, patient was unable to get out of bed, so he slid to the ground and crawled. Son is visiting from [place] and has been staying with patient. Also endorses difficulty swallowing that has progressed over the past few months. Has equal difficulty swallowing solid foods or liquids. Son notes more frequent aspiration at home. Denies fever, chills, lightheadedness, difficulty speaking, chest pain, SOB, wheezing, nausea, vomiting, abdominal pain, dysuria, diarrhea or constipation. Patient was diagnosed with SCC of scalp with resection in Jan 2017 and underwent radiation by Dr. Myrick in April 2017. Developed pleuritic chest pain in Jan 2018 and metastatic SCC was found on RLL, which was resected by Dr. Carroll on Mar 17 2018. Was seen by Dr. Reeder at the end of March and PET scan was negative. Planned on returning in April for further management with systemic chemotherapy versus immunotherapy. Followed up with dermatology for recurrent scalp lesion yesterday and had excision. Pathology pending. Hemodynamically stable. CTA head/neck with 2.1 enhancing pontine lesion suspicious for neoplasm. Correlation with contrast-enhanced MRI of the brain recommended. 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 Otherwise unremarkable CTA without dissection, high-grade stenosis or proximal branch occlusion. Discussed with Dr. Esteban of neurology. Will admit for MRI brain with/without contrast. Also ordered IV Decadron 10mg x 1. 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 /Rt hemiparesis Discharge Exam Constitutional WD/WN, vitals as above + ill appearing, + altered mental status (very lethergic , worsening of dysarthria , ), + physical limitations and + lethargic Eyes + eyelid abnormality (marked rt eyelid droop ) Neck trachea midline, no thyromegaly Respiratory normal respiratory effort; no respiratory distress and no cough Cardiovascular RRR, no murmur, no edema Rate/Rhythm: regular rate and regular rhythm Gastrointestinal (Abdomen) Inspection/Auscultation: normal bowel sounds; no abdominal edema Percussion/Palpation: abdomen soft; abdomen nontender Neurologic + confused (episodes of confusion noted , pt is aware of the symptom and tries to correct ) Speech / Cognition: + abnormal speech (dysarthric ) and + expressive aphasia ( rt hemiparesis ) Motor/Sensory: + tremor (Right lower extremity) and + abnormal movement ( Myoclonic jerk on right lower extremity) Psychiatric A+Ox3, euthymic affect Discharge Data Allergies Allergy/AdvReac Type Severity Reaction Status Date / Time morphine AdvReac Unknown SLOWS HR Verified 03/19/18 10:34 Consultations 04/06/18 12:17 Consult Oncology Routine 04/06/18 12:18 Consult Radiation Oncology Routine 04/07/18 18:30 Consult Neurology Routine 04/08/18 18:56 Consult Gastroenterology Routine 04/10/18 17:33 Consult Palliative Care Routine Procedures Performed Operation Date: 04/22/18 13:10 Actual Procedures p Esophagogastroduodenoscopy with Gastric Tube Placement - Lucía Rivera MD Ordered Studies 04/05/18 15:23 CT angio head w con Stat CT head/brain wo con Stat 04/05/18 15:26 CT angio neck with con Stat 04/05/18 19:05 MR brain wo/w con Routine 04/06/18 11:45 FL video swallow Routine 04/06/18 20:40 CT chest wo con Routine 04/08/18 10:52 CT head/brain wo con Stat 04/08/18 11:00 CT abd pelvis IV con only Routine Hospital Course (1) Nutrition disorder: PEG tube placed, started on tube feeding, tolerating well Continuous tube feeding advanced to 40 mill per hour, tolerating well, Stable to be transferred to [facility] today Severe dysphagia due to pontine lesion. Severe protein-calorie malnutrition with significant weight loss prior to admission. 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, Status post PEG tube placement, on 04/22/2018 (2) Pontine lesion: Progressive worsening of symptoms with dysarthria dysphagia right hemiparesis No change or improvement of symptoms after completion of palliative radiation treatment Referral made to [facility] for [facility], given severe deconditioning per PT OT patient is not a candidate for skilled placement [facility] will not be able to accept patient with continued TPN Discussed with palliative care case loader operator, patient's son Plan for family meetingTomorrow to discuss goal of care Presented with progressive dysphagia and right-sided weakness. CT head 04/05/18 demonstrated ill-defined left pontine lesion. 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 Received IV dexamethasone. Medical Oncology and Radiation Oncology consulted. Completed palliative radiation treatment, no improvement of symptoms Worsening right-sided weakness on 04/08. CT demonstrated hemorrhage associated with left pontine lesion. Patient is discharged with p.o. Decadron taper dose/ reduce dose by 50% on a weekly basis. l which can be crushed and given via PEG tube Prognosis poor. Palliative Care following PEG tube placed per patient's request, for palliative feeding Transfer to [facility] for skilled rehab today, will be transition to hospice care later when appropriate/clinical decline (3) SCC (squamous cell carcinoma): Metastatic squamous cell carcinoma of skin. Not candidate for chemotherapy at this time due to poor functional status. (4) Difficulty clearing secretions: Secondary to severe dysphasia, with pontine Patient is continue to use oral suction, Continue saline nebs. Possible sinusitis. Completed 5 days of Zosyn (5) DVT prophylaxis: Moderate to high risk, secondary to significant deconditioning bedbound dense right hemiparesis No anticoagulants due to metastatic pontine lesion with hemorrhage. SCD's. Patient is a DNR/DNI (6) Discharge planning issues: Status post PEG tube placed tolerating tube feed Social service following transfer to 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 /Rt hemiparesis Discharge Goals: Decrease discomfort, Improve disease control, Improve nutritional status and Therapeutic intervention Activity: As commented below Activity Comment: as tolerated Non-emergency contact: Primary Care Provider Call non-emergency contact if: you have any medication questions Diet: Enteral nutrition and See below Diet Comment: Continue tube feeding Addtl Provider Instructions: TUBE FEEDING : Tube Feeding Peptamin 1.5 @ 40 ml /hr continuous please check residual q8hrs /hold tube feeding for 1 hr if residual > 50 ml Free water flush 200 ml X4 times daily Prescriptions: New morphine concentrate 100 mg/5 mL (20 mg/mL) Solution 5 mg G-Tube Q4 PRN (Reason: ANXIETY) Qty: 20 RF: 0 lorazepam 1 mg Tablet 1 mg Sublingual Q8 PRN (Reason: ANXIETY) Qty: 20 RF: 0 dexamethasone 4 mg Tablet PO DAILY Qty: 25 RF: 0 sodium chloride [Saline Mist] 0.65 % Aerosol,[place] 4 spry NA QID PRN (Reason: NASAL CONGESTION) Qty: 1 RF: 0 atropine in 0.9 % sod chloride 0.01 % drops See Label Instructions .ROUTE .COMPLEX Qty: 10 RF: 0 polyethylene glycol 3350 [Miralax] 17 gram powder in packet 17 gm PO DAILY PRN (Reason: constipation) Qty: 30 RF: 0 nut.tx.impaired digest fxn [Peptamen 1.5] 0.068 gram- 1.5 kcal/mL Liquid See Label Instructions .ROUTE .COMPLEX Qty: 1000 RF: 0 metoclopramide HCl [Reglan] 5 mg tablet 5 mg Feeding Tube TID Qty: 90 RF: 0 Continue triamcinolone acetonide 0.1 % Cream 1 applic TOPICAL BID RF: 0 omeprazole 20 mg Capsule,Delayed Release(Dr/Ec) 20 mg PO QAM RF: 0 acetaminophen [Tylenol Extra Strength] 500 mg Tablet 500 - 1,000 mg PO Q6H PRN (Reason: Pain) RF: 0 diazepam [Valium] 5 mg Tablet 5 mg PO HS PRN (Reason: Muscle Spasm) Qty: 30 RF: 0 Discontinued ibuprofen [Advil] 200 mg Tablet 200 mg PO QID PRN (Reason: Pain) RF: 0 Stand-Alone Forms: [facility] Discharge Orders: Discharge Order (Routine); Ordered 04/25/18 Ordered By: Franchesca Cano Skilled Items Patient informed of condition?: Yes DNR: Yes Discharge Level of Care: Skilled Communicable Disease: No Discharge Prognosis: Deteriorating Admission Data Admit Date/Time: 04/05/18 19:03 Attending Provider: Franchesca Cano Admit Provider: Sudheer Viveros Primary Care Provider: Jose Miguel Ansari Other Providers: Pascual Garcia ; Franchesca Cano ; Meena Washington ; Pratik Reeder ; Colby Muñoz ; Brendon Mercado ; Shea Christensen ; Pascual Crockett ; Shea Goff ; Christi Kim ; Cristobal Esteban ; Yvette Curtis ; Amber Reagan ; Kai Ibrahim ; Heidi Escalante ; James Freeman ; Ania Escalante ; Asad Craig ; Lori Castillo ; Davion Jules ; Gregory Duncan ; Tosha Hand ; Dayanna Stewart ; Yoli Irwin ; Dior Ralph ; Lucía Rivera ; [facility] Service: Medical Other Interventions: Discharge Summary Assessment (RN) Last Done: 04/25/18 13:40 Pending Studies at Discharge: No DC Date/Time DO NOT enter until pt leaves facility: 04/25/18 14:30
[2018-04-25] MEDS ORDERED: METOCLOPRAMIDE HCL SYRUP 5 MG/5 ML PO ONE (13:45)
--- NOTE | 2018-04-25 14:11 | Palliative Care Progress Note ---
Date of Service April 25, 2018 Assessment & Plan (1) Palliative care encounter: Patient seen and examined , patient's son at bedside . 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 Patient presented to the emergency room on 04/05 with increasing right-sided weakness, increasing dysphasia and was found to have a 2.3 cm lesion of the left aspect of the ventral rachael. Patient completed 5/5 XRT sessions. Patient continues to have significant dysarthria, dysphasia, and right hemiparesis. 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 -Dysphasia-patient now on PEG tube feeds, tolerating current rate well. Discussed risk of aspiration even with tube feeds-both patient and son aware. -Plan is for transfer to [facility] later today for rehab. -Filled out [facility] paperwork for son last week. Will continue to follow to assist with medical decision making and provide support to patient's son (2) Hemiparesis of right dominant side: Dense right-sided hemiparesis, facial droop, dysarthria and dysphasia-no change on exam as a result of XRT (3) Dysphagia: -Patient is n.p.o., now on PEG tube feeds-tolerating current rate well -Continue Yankauer suction for oral secretions -PRN atropine caused thicker secretions which were difficult to clear-this was discontinued, would not recommend restarting (4) Metastatic squamous cell carcinoma: With new lesion in the ventral rachael-s/p palliative XRT Subjective Patient seen and examined, son at bedside. Patient is status post PEG tube-tolerating tube feeds without any difficulty. Patient denies any pain or discomfort, states the tube feeds are satisfying his sense of hunger. Review of Systems Patient denies fever, chills, chest pain, shortness of breath, or abdominal pain. Physical Exam 2 Vital Signs (Past 24 Hours): Last Vital Signs Temp 36.5 C 04/25/18 13:40 Pulse 75 04/25/18 13:40 Resp 16 04/25/18 13:40 BP 118/74 04/25/18 13:40 Pulse Ox 96 04/25/18 13:40 Physical Exam: PE: No acute distress HEENT: EOMI, dry mucous membranes Respirations: Coarse breath sounds bilaterally CV: Normal rate Abdomen: G-tube in place, nontender Extremities: Continues to have dense right hemiparesis Neuro: Dysphasia, alert and oriented x4 Time Spent Attending Total time spent 25 minutes with greater than 50% of the time spent at bedside discussing plan of care as well as discussing possible upcoming issues regarding disease progression and tube feeds _ (1) Hemiparesis of right dominant side Hemiparesis etiology: non-cerebrovascular etiology Cerebrovascular disease type: Qualified Code(s): G81.91 - Hemiplegia, unspecified affecting right dominant side (2) Dysphagia Dysphagia type: esophageal phase Qualified Code(s): R13.10 - Dysphagia, unspecified
[2018-04-25] MEDS ORDERED: dexAMETHasone 4 MG TAB PO SCH (21:00)
[2018-04-26] MEDS ORDERED: dexAMETHasone 4 MG TAB PO SCH (09:00)
== END 2018-04-25 14:30 | DRG 54 ==
LOC: ED 14:46 → SUATTDRO 19:03 → 2S 19:03 → 4E 04-06 14:38
DX: Z51.5 Encounter for palliative care; C79.31 Secondary malignant neoplasm of brain; G81.91 Hemiplegia, unspecified affecting right dominant side; Z80.1 Family history of malignant neoplasm of trachea, bronchus and lung; G93.6 Cerebral edema; R53.1 Weakness; R13.10 Dysphagia, unspecified; Z87.891 Personal history of nicotine dependence; E43 Unspecified severe protein-calorie malnutrition; Z82.49 Family history of ischemic heart disease and other diseases of the circulatory system; Z88.5 Allergy status to narcotic agent; Z89.022 Acquired absence of left finger(s); Z85.820 Personal history of malignant melanoma of skin; C44.42 Squamous cell carcinoma of skin of scalp and neck; G93.40 Encephalopathy, unspecified